=== PATIENT | female | born 1955 ===

== ENCOUNTER 2020-03-04 08:01 | Outpatient (REF) | payer MEDICARE, MEDICAID, SELFPAY ==
[2020-03-04 10:39] LABS: Albumin Level 4.4 g/dL (3.5-5.0); Calcium 9.9 mg/dL (8.4-10.2)
[2020-03-04 11:08] LABS: Free T4 (Free Thyroxine) 1.24 ng/dL (0.71-1.85); Thyroid Stimulating Hormone 2.49 mIU/mL (0.32-4.0); Vitamin D 25-OH Total 34.9 ng/mL (>30)
[2020-03-05 20:32] LABS: Calcium (PTHI) 9.7 mg/dL (8.6-10.4); PTHI 54 pg/mL (14-64)
[2020-03-10 01:17] LABS: VITAMIN D (1,25 OH) D3 54 pg/mL; Vit D (1,25-Dihydroxy) Total 54 pg/mL (18-72); Vitamin D (1,25 OH) D2 <8 pg/mL
== END 2020-03-04 08:02 | disposition home or self-care (01) ==
LOC: HO.10HDL 08:01
PROVIDERS: Visit Provider Internal Medicine Endocrinology, Diabetes & Metabolism
DX: E83.52 Hypercalcemia (principal); E04.2 Nontoxic multinodular goiter; M81.0 Age-related osteoporosis without current pathological fracture
CPT/HCPCS: 82040; 82306; 82310; 82652; 83970; 84439; 84443

== ENCOUNTER 2020-04-10 07:33 | Outpatient (REF) | payer MEDICARE, MEDICAID, SELFPAY ==
[2020-04-10 11:06] LABS: Total Volume 24 Hour Urine 500 mL
[2020-04-10 11:13] LABS: Creatinine, 24Hr Urine 0.4 G/Day (1.0-2.0); Creatinine, mg/dL 85.07
[2020-04-13 18:18] LABS: Calcium, 24 Hr Urine 69 mg/24 h; Calcium/Creatinine Ratio 161 mg/g creat (30-275); Creatinine 24Hr Urine 0.43 g/24 h (0.50-2.15)
== END 2020-04-10 07:34 | disposition home or self-care (01) ==
LOC: HO.10HDLNP 07:33
PROVIDERS: Visit Provider Internal Medicine Endocrinology, Diabetes & Metabolism
DX: E83.52 Hypercalcemia (principal); M81.0 Age-related osteoporosis without current pathological fracture; E04.2 Nontoxic multinodular goiter
CPT/HCPCS: 82340; 82570

== ENCOUNTER 2020-04-15 12:31 | Outpatient (REF) | payer MEDICARE, MEDICAID, SELFPAY ==
[2020-04-15 15:08] LABS: Alanine Aminotransferase 53 U/L (0-31); Albumin Level 4.5 g/dL (3.5-5.0); Alkaline Phosphatase 95 U/L (39-117); Anion Gap 10 (12-20); Aspartate Amino Transferase 40 U/L (5-31); Bilirubin Total 0.4 mg/dL (0.0-1.0); Blood Urea Nitrogen 14 mg/dL (9-16); Calcium 10.4 mg/dL (8.4-10.2); Carbon Dioxide 31 mmol/L (22-29); Chloride 103 mmol/L (96-108); Estimated Glomerular Filt Rate > 60; Glucose Random 95 mg/dL (60-115); Potassium 4.4 mmol/l (3.3-5.1); Sodium 140 mmol/L (135-145); Total Protein 8.1 g/dL (6.5-8.0)
[2020-04-15 15:31] LABS: Vitamin D 25-OH Total 38.3 ng/mL (>30)
[2020-04-17 21:43] LABS: Calcium (PTHI) 10.7 mg/dL (8.6-10.4); PTHI 47 pg/mL (14-64)
== END 2020-04-15 12:32 | disposition home or self-care (01) ==
LOC: HO.LAB 12:31
PROVIDERS: PCP Nurse Practitioner Family; Referring Provider Nurse Practitioner Family; Visit Provider Internal Medicine Endocrinology, Diabetes & Metabolism
DX: M81.0 Age-related osteoporosis without current pathological fracture (principal); E04.2 Nontoxic multinodular goiter; E83.52 Hypercalcemia; I10 Essential (primary) hypertension; Z79.899 Other long term (current) drug therapy
CPT/HCPCS: 80053; 82306; 83970; 99212

== ENCOUNTER 2020-04-20 08:04 | Outpatient (REF) | payer MEDICARE, MEDICAID, SELFPAY ==
--- NOTE | 2020-04-20 08:08 | US_ITS ---
PROCEDURE: US-GUIDED LEFT THYROID NODULE BIOPSY CLINICAL INFORMATION: Multiple thyroid nodules. A dominant nodule 1.8 cm in left lower pole. COMPARISON: Ultrasound thyroid soft tissue neck 10/23/2019 TECHNIQUE: Following explaining ultrasound-guided left thyroid nodule biopsy procedure, benefits and risk, a written consent was obtained. Patient was placed supine on ultrasound stretcher, and preliminary ultrasound imaging was obtained through the neck, especially the left neck. An optimal site was selected, marked on the skin. The area marked was cleaned and draped in usual sterile manner. 1% lidocaine was administered at puncture site. Under sterile ultrasound guidance, a 25-gauge needle attached to syringe was advanced into the dominant nodule and aspirated. Three fine needle aspiration biopsies were performed. Lastly, a 22-gauge needle connected to the syringe was advanced, and thick gelatinous fluid was aspirated. Postprocedure repeat ultrasound revealed shrinkage of the cystic nodule. Complete hemostasis was achieved at puncture site. Sterile band-aid was applied at the puncture site. Patient tolerated the procedure extremely well. FINDINGS: On preliminary imaging, there is a moderate size dominant nodule lower pole left lobe predominantly appearing cystic. Three pass fine-needle biopsy aspiration with 25-gauge and last aspiration biopsy was performed with a 22-gauge needle. US/US guided fine needle asp IMPRESSION: Successful ultrasound-guided left lower pole dominant nodule biopsy performed. Cytology results are pending.
== END 2020-04-20 08:05 | disposition home or self-care (01) ==
LOC: HO.US 08:04
PROVIDERS: PCP Nurse Practitioner Family; Visit Provider Internal Medicine Endocrinology, Diabetes & Metabolism
DX: E04.2 Nontoxic multinodular goiter (principal)
CPT/HCPCS: 10005; 88172; 88173; 88177

== ENCOUNTER 2020-05-18 08:00 | Outpatient (REF) | payer MEDICARE, MEDICAID, SELFPAY ==
[2020-05-18 09:55] LABS: Hemoglobin 11.9 g/dl (12.0-16.0); Mean Corpuscular HGB Conc 32.2 g/dl (31.0-35.0); Mean Corpuscular Hemoglobin 30.4 pg (27.0-33.0); Mean Corpuscular Volume 94.6 fL (80-98); Platelet Count 329 X10*3/uL (160-400); Red Blood Count 3.91 X10*6/uL (4.20-5.50); Red Cell Distribution Width 12.2 % (11.0-16.0); White Blood Count 7.6 X10*3/uL (4.8-10.8)
[2020-05-18 10:01] LABS: Alanine Aminotransferase 38 U/L (0-31); Albumin Level 4.6 g/dL (3.5-5.0); Alkaline Phosphatase 89 U/L (39-117); Anion Gap 13 (12-20); Aspartate Amino Transferase 27 U/L (5-31); Bilirubin Total 0.5 mg/dL (0.0-1.0); Blood Urea Nitrogen 13 mg/dL (9-16); Calcium 10.1 mg/dL (8.4-10.2); Carbon Dioxide 28 mmol/L (22-29); Chloride 105 mmol/L (96-108); Cholesterol 141 mg/dL; Estimated Glomerular Filt Rate > 60; Glucose Random 129 mg/dL (60-115); HDL Cholesterol 52 mg/dL; LDL Cholesterol Calculated 71 mg/dl; Potassium 4.2 mmol/l (3.3-5.1); Sodium 142 mmol/L (135-145); Total Protein 8.2 g/dL (6.5-8.0); Triglycerides 93 mg/dL
[2020-05-18 10:13] LABS: Vitamin D 25-OH Total 37.4 ng/mL (>30)
== END 2020-05-18 08:01 | disposition home or self-care (01) ==
LOC: HO.LAB 08:00
PROVIDERS: PCP Nurse Practitioner Family; Visit Provider Nurse Practitioner Family
DX: E78.00 Pure hypercholesterolemia, unspecified (principal); I10 Essential (primary) hypertension; M81.0 Age-related osteoporosis without current pathological fracture; Z71.89 Other specified counseling
CPT/HCPCS: 36415; 80053; 80061; 82306; 85027

== ENCOUNTER 2020-08-13 09:40 | Outpatient (REF) | payer MEDICARE, MEDICAID, SELFPAY ==
--- NOTE | 2020-08-13 10:14 | PM.OP ---
Brief Operative Note Date of Service: 08/13/20 Pre-op diagnosis: NONTOXIC MULTINODULAR GOITER Post-op diagnosis: same Procedure: This procedure was explained to the patient. Alternatives, risks and benefits were discussed. Written consent was obtained. After sterile preparation of the skin, fine-needle aspiration biopsy of left lower pole thyroid nodule size 1.8 x 1.1 x 1.3 cm was performed under direct ultrasound guidance to confirm accurate needle placement. Three passes were performed with 25 gauge needles. Sample was submitted to cytology, initial cytology reading was adequate. One pass was performed with 27 gauge needle. Two passes were dedicated for [employer] genomic sequencing pharmacy general manager test. Patient tolerated procedure well. Aftercare instructions were provided. Impression: uncomplicated fine-needle aspiration biopsy of left lower pole thyroid nodule under direct ultrasound guidance. Surgeon: Hola Soto MD Anesthesia: local (Lidocaine 1 % 1 ml) Estimated blood loss (mL): 0 Condition: stable Disposition: same day
[2020-08-13] MEDS: Lidocaine HCl 1 % MPF 5 ML VIAL SUBCUT (10:31)
== END 2020-08-13 09:41 | disposition home or self-care (01) ==
LOC: HO.US 09:40
PROVIDERS: Visit Provider Internal Medicine Endocrinology, Diabetes & Metabolism
DX: E04.2 Nontoxic multinodular goiter (principal)
CPT/HCPCS: 10005; 88172; 88173; 88177

== ENCOUNTER 2020-09-09 07:32 | Outpatient (REF) | payer MEDICARE, SELFPAY ==
[2020-09-09 08:54] LABS: MANUAL DIFF FLAG NO
[2020-09-09 09:03] LABS: Basophils Percent Auto 0.5 % (0-2); Eosinophils Absolute Auto 0.2 X10*3/uL (0.0-0.4); Eosinophils Percent Auto 3.1 % (0-4); Hematocrit 36.1 % (37-47); Hemoglobin 11.8 g/dl (12.0-16.0); Imm Gran Abs Auto 0.03 X10*3/uL (0.00-0.03); Imm Gran Pct Auto 0.4 % (0.0-0.4); Lymphocytes Absolute Auto 2.4 X10*3/uL (1.2-4.9); Mean Corpuscular HGB Conc 32.7 g/dl (31.0-35.0); Mean Corpuscular Hemoglobin 30.7 pg (27.0-33.0); Mean Platelet Volume 9.9 fL (9.4-12.3); Monocytes Absolute Auto 0.6 X10*3/uL (0.1-1.2); Monocytes Percent Auto 7.6 % (2-11); Neutrophils Absolute Auto 4.1 X10*3/uL (2.0-8.3); Neutrophils Percent Auto 55.4 % (45-73); Platelet Count 320 X10*3/uL (160-400); Red Blood Count 3.84 X10*6/uL (4.20-5.50); Red Cell Distribution Width 12.4 % (11.0-16.0); White Blood Count 7.4 X10*3/uL (4.8-10.8)
[2020-09-09 09:04] LABS: Estimated Average Glucose 100 mg/dL; Hemoglobin A1c % 5.1 %
[2020-09-09 09:19] LABS: Alanine Aminotransferase 31 U/L (0-31); Albumin Level 4.6 g/dL (3.5-5.0); Alkaline Phosphatase 99 U/L (39-117); Anion Gap 13 (12-20); Aspartate Amino Transferase 32 U/L (5-31); Bilirubin Total 0.7 mg/dL (0.0-1.0); Blood Urea Nitrogen 12 mg/dL (9-16); Calcium 10.3 mg/dL (8.4-10.2); Carbon Dioxide 28 mmol/L (22-29); Chloride 105 mmol/L (96-108); Cholesterol 155 mg/dL; Estimated Glomerular Filt Rate > 60; Glucose Random 112 mg/dL (60-115); HDL Cholesterol 51 mg/dL; LDL Cholesterol Calculated 85 mg/dl; Potassium 4.1 mmol/L (3.3-5.1); Sodium 142 mmol/L (135-145); Total Protein 8.3 g/dL (6.5-8.0); Triglycerides 99 mg/dL
[2020-09-09 09:28] LABS: B Type Natriuretic Peptide 18 pg/mL (<100)
== END 2020-09-09 07:33 | disposition home or self-care (01) ==
LOC: HO.LAB 07:32
PROVIDERS: PCP Internal Medicine; Visit Provider Internal Medicine
DX: E78.00 Pure hypercholesterolemia, unspecified (principal); I10 Essential (primary) hypertension; R60.0 Localized edema
CPT/HCPCS: 36415; 80053; 80061; 83036; 83880; 85025

== ENCOUNTER 2020-10-12 13:00 | Outpatient (REF) | payer MEDICARE, SELFPAY ==
--- NOTE | ~2020-10-12 | MM_ITS ---
EXAMINATION: MM SCREENING DIGITAL BREAST TOMOSYNTHESIS, BILATERAL CLINICAL INFORMATION: Screening. Asymptomatic. The lifetime risk of breast cancer based on the Tyrer-Cuzick Model is 4%. COMPARISON: Mammography: 08/12/2019 and prior exams dating back to 02/11/2013. TECHNIQUE: Digital breast tomosynthesis is performed in both the craniocaudal and mediolateral oblique views along with computer-aided detection (CAD). Synthesized 2D images are generated from the tomosynthesis. Additional left MLO view is provided. FINDINGS: The breasts are heterogeneously dense, which may obscure small masses (ACR BI-RADS breast composition Category c). Parenchymal pattern is similar to prior studies. There is chronic patchy accessory breast tissue again noted posterior upper outer right breast similar to prior studies. Neither breast shows developing density or interval mass or architectural abnormality. No abnormal calcifications. The axilla and skin contours are unremarkable. MM/MM tomosynthesis screening BI IMPRESSION: No significant changes from prior studies. ASSESSMENT: BI-RADS 2: Benign RECOMMENDATION: Routine annual mammography screening. This patient's information was entered into a reminder system with a target due date for their next mammogram.
== END 2020-10-12 13:01 | disposition home or self-care (01) ==
LOC: HO.MAMMO 13:00
PROVIDERS: PCP Internal Medicine; Visit Provider Internal Medicine
DX: Z12.31 Encounter for screening mammogram for malignant neoplasm of breast (principal)
CPT/HCPCS: 77063; 77067

== ENCOUNTER → 2020-10-21 11:15 | Outpatient (BNVA) | payer MEDICARE, SELFPAY | PROVIDERS: PCP Internal Medicine; Visit Provider Internal Medicine Endocrinology, Diabetes & Metabolism | DX: M81.0 Age-related osteoporosis without current pathological fracture (principal); E04.2 Nontoxic multinodular goiter; E83.52 Hypercalcemia; I10 Essential (primary) hypertension | CPT/HCPCS: 99212 ==

== ENCOUNTER 2020-10-23 08:41 | Outpatient (REF) | payer MEDICARE, SELFPAY ==
[2020-10-23 11:08] LABS: Alanine Aminotransferase 39 U/L (0-31); Albumin Level 4.5 g/dL (3.5-5.0); Alkaline Phosphatase 100 U/L (39-117); Anion Gap 14 (12-20); Aspartate Amino Transferase 32 U/L (5-31); Bilirubin Total 0.6 mg/dL (0.0-1.0); Blood Urea Nitrogen 12 mg/dL (9-16); Calcium 10.1 mg/dL (8.4-10.2); Carbon Dioxide 30 mmol/L (22-29); Chloride 105 mmol/L (96-108); Estimated Glomerular Filt Rate > 60; Glucose Fasting 103 mg/dL (60-99); Magnesium 2.4 mg/dL (1.6-2.6); Phosphorus 3.5 mg/dL (2.7-4.5); Potassium 3.9 mmol/L (3.3-5.1); Sodium 145 mmol/L (135-145)
[2020-10-23 11:15] LABS: Free T4 (Free Thyroxine) 1.06 ng/dL (0.71-1.85); Thyroid Stimulating Hormone 2.21 uIU/mL (0.32-4.0); Vitamin D 25-OH Total 42.6 ng/mL (>30)
[2020-10-26 14:42] LABS: Calcium, Ionized 5.2 mg/dL (4.8-5.6)
[2020-10-27 09:36] LABS: PTHI 105 pg/mL (14-64)
[2020-10-28 12:22] LABS: Alkaline Phosphatase Bone 14.5 mcg/L (5.6-29.0)
[2020-10-29 13:32] LABS: N-Telopeptide 20 (see note); NTXCreaRU 142 mg/dL (20-275)
== END 2020-10-23 08:42 | disposition home or self-care (01) ==
LOC: HO.10HDL 08:41
PROVIDERS: Visit Provider Internal Medicine Endocrinology, Diabetes & Metabolism
DX: M81.0 Age-related osteoporosis without current pathological fracture (principal); E83.52 Hypercalcemia; E04.2 Nontoxic multinodular goiter
CPT/HCPCS: 36415; 80053; 82306; 82330; 82340; 82523; 82570; 83735; 83970; 84075; 84100; 84439; 84443

== ENCOUNTER 2020-11-03 07:49 | Outpatient (REF) | payer MEDICARE, SELFPAY ==
[2020-11-03 11:19] LABS: Total Volume 24 Hour Urine 700 mL
[2020-11-03 12:01] LABS: Creatinine, 24Hr Urine 0.5 G/Day (1.0-2.0); Creatinine, mg/dL 77.34
[2020-11-04 20:12] LABS: Calcium, 24 Hr Urine 69 mg/24 h; Calcium/Creatinine Ratio 126 mg/g creat (30-275); Creatinine 24Hr Urine 0.55 g/24 h (0.50-2.15)
== END 2020-11-03 07:50 | disposition home or self-care (01) ==
LOC: HO.10HDLNP 07:49
PROVIDERS: Visit Provider Internal Medicine Endocrinology, Diabetes & Metabolism
DX: M81.0 Age-related osteoporosis without current pathological fracture (principal)
CPT/HCPCS: 82340; 82570

== ENCOUNTER 2020-11-12 09:19 | Outpatient (REF) | payer MEDICARE, SELFPAY ==
--- NOTE | ~2020-11-12 | MM_ITS ---
EXAMINATION: BONE DENSITOMETRY CLINICAL INDICATION: Age-related osteoporosis without current pathological fracture. COMPARISON: Previous BD dated 12/23/2019, lumbar spine and left hip, and baseline BD dated 12/18/2007, lumbar spine and left hip; 12/23/2019, forearm radius 33. TECHNIQUE: Using a [employer] DXA System (software version: 13.1) manufactured by [employer], dual-energy x-ray absorptiometry was performed of the lumbar spine, left hip, and left forearm radius 33%. The images are of good technical quality. Summary results are attached. FINDINGS: AP SPINE L1-L4: Current: BMD 0.928 g/cm2, Z-score -0.3, T-score -2.1, osteopenia, 0.8% increase from previous, 0.9% increase from baseline (<5% change is not significant). Prior: BMD 0.921 g/cm2. Baseline: BMD 0.920 g/cm2. LEFT FEMUR, NECK: Current: BMD 0.753 g/cm2, Z-score -0.3, T-score -2.1, osteopenia. Prior: BMD 0.734 g/cm2. Baseline: BMD 0.752 g/cm2. LEFT FEMUR, TOTAL: Current: BMD 0.866 g/cm2, Z-score 0.4, T-score -1.1, osteopenia, 0.5% increase from previous, 0.3% increase from baseline (<5% change is not significant). Prior: BMD 0.862 g/cm2. Baseline: BMD 0.863 g/cm2. LEFT FOREARM RADIUS 33%: BMD 0.777 g/cm2, Z-score 0.5, T-score -1.1, osteopenia, 5.2% decrease from baseline (<5% change is not significant). Prior exam 12/23/2019 - also baseline for forearm: BMD 0.820 g/cm2. IDENTIFIED RISK FACTORS: Osteoporosis, hyperparathyroidism, menopause, hysterectomy, bilateral oophorectomy. HISTORY OF FRACTURE: None listed. MEDICATIONS: Calcium supplements or multivitamin, vitamin D, bisphosphonates. MM/XR DEXA appendicular skeleton IMPRESSION: 1. DIAGNOSIS: Osteopenia based on the lowest T-score value of -2.1 in the lumbar spine and femoral neck applying World Health Organization criteria. 2. 10-YEAR FRACTURE RISK PREDICTION, FRAX: Major osteoporotic fracture (clinical spine, forearm, hip or shoulder) 6.4%. Hip fracture 1.2%. 3. Treatment Recommendations: NOF guidelines recommend consideration for treatment in postmenopausal women and men age 50 and older presenting with the following: -A hip or vertebral (clinical or morphometric) fracture. -T-score less than or equal to -2.5 at the femoral neck or spine after appropriate evaluation to exclude secondary causes. -Low bone mass at the hip or spine and a 10-year fracture probability by FRAX of greater than or equal to 3% for hip fracture or greater than or equal to 20% for major osteoporotic fracture based on the [place] adapted WHO algorithm. 4. Other Recommendations: All treatment decisions require clinical judgment and consideration of individual patient factors, including patient preferences, comorbidities, previous drug use, risk factors not captured in the FRAX model (e.g. frailty, falls, vitamin D deficiency, increased bone turnover, interval significant decline in bone density) and possible under or overestimation of fracture risk by FRAX. Additional medical evaluation for secondary cause of low bone mineral density may be appropriate. FUTURE SCAN RECOMMENDATION: People with diagnosed cases of osteoporosis or at high risk for fracture should have regular bone mineral density tests. For patients eligible for Medicare, routine testing is allowed once every 2 years. The testing frequency can be increased to one year for patients who have rapidly progressing disease, those who are receiving or discontinuing medical therapy to restore bone mass, or have additional risk factors.
== END 2020-11-12 09:20 | disposition home or self-care (01) ==
LOC: HO.MAMMO 09:19
PROVIDERS: Visit Provider Internal Medicine Endocrinology, Diabetes & Metabolism
DX: Z13.820 Encounter for screening for osteoporosis (principal); M81.0 Age-related osteoporosis without current pathological fracture; E83.52 Hypercalcemia; Z78.0 Asymptomatic menopausal state; Z98.890 Other specified postprocedural states; Z79.899 Other long term (current) drug therapy
CPT/HCPCS: 77081

== ENCOUNTER → 2021-06-24 12:32 | Outpatient (BNVA) | payer MEDICARE, SELFPAY | PROVIDERS: PCP Internal Medicine; Visit Provider Internal Medicine Endocrinology, Diabetes & Metabolism | DX: M81.0 Age-related osteoporosis without current pathological fracture (principal); E83.52 Hypercalcemia; E04.2 Nontoxic multinodular goiter | CPT/HCPCS: 99212 ==

== ENCOUNTER 2021-06-30 07:41 | Outpatient (REF) | payer MEDICARE, SELFPAY ==
[2021-06-30 10:24] LABS: Albumin Level 4.4 g/dL (3.5-5.0)
[2021-06-30 10:50] LABS: Vitamin D 25-OH Total 16.5 ng/mL (>30)
[2021-07-01 13:45] LABS: Calcium (PTHI) 10.3 mg/dL (8.6-10.4); PTHI 78 pg/mL (14-64)
== END 2021-06-30 07:42 | disposition home or self-care (01) ==
LOC: HO.10HDL 07:41
PROVIDERS: Visit Provider Internal Medicine Endocrinology, Diabetes & Metabolism
DX: E83.52 Hypercalcemia (principal); M81.0 Age-related osteoporosis without current pathological fracture
CPT/HCPCS: 36415; 82040; 82306; 83970

== ENCOUNTER 2021-09-01 07:07 | Outpatient (REF) | payer OTHER, SELFPAY ==
[2021-09-01 08:47] LABS: Albumin Level 4.5 g/dL (3.5-5.0); Calcium 10.6 mg/dL (8.4-10.2)
[2021-09-01 09:08] LABS: Vitamin D 25-OH Total 83.2 ng/mL (>30)
[2021-09-06 12:47] LABS: Calcium (PTHI) 10.2 mg/dL (8.6-10.4); PTHI 74 pg/mL (16-77)
== END 2021-09-01 07:08 | disposition home or self-care (01) ==
LOC: HO.LAB 07:07
PROVIDERS: Visit Provider Internal Medicine Endocrinology, Diabetes & Metabolism
DX: E83.52 Hypercalcemia (principal)
CPT/HCPCS: 36415; 82040; 82306; 82310; 83970

== ENCOUNTER 2022-01-18 13:16 | Outpatient (REF) | payer OTHER, SELFPAY ==
--- NOTE | ~2022-01-18 | MM_ITS ---
EXAMINATION: MM SCREENING DIGITAL BREAST TOMOSYNTHESIS, BILATERAL CLINICAL INFORMATION: Screening. Asymptomatic. The lifetime risk of breast cancer based on the Tyrer-Cuzick Model is 2.7%. COMPARISON: Mammography: October 12, 2020 and studies dating back to February 17, 2015 TECHNIQUE: Digital breast tomosynthesis is performed in both the craniocaudal and mediolateral oblique views along with computer-aided detection (CAD). Synthesized 2D images are generated from the tomosynthesis. FINDINGS: The breasts are heterogeneously dense, which may obscure small masses (ACR BI-RADS breast composition Category c). There are no significant masses, abnormal calcifications, or other abnormalities. MM/MM tomosynthesis screening BI IMPRESSION: No significant changes from prior exam. ASSESSMENT: BI-RADS 1: Negative RECOMMENDATION: Routine annual mammography screening. This patient's information was entered into a reminder system with a target due date for their next mammogram.
== END 2022-01-18 13:17 | disposition home or self-care (01) ==
LOC: HO.MAMMO 13:16
PROVIDERS: PCP Internal Medicine; Visit Provider Internal Medicine
DX: Z12.31 Encounter for screening mammogram for malignant neoplasm of breast (principal)
CPT/HCPCS: 77063; 77067

== ENCOUNTER 2022-09-27 11:36 | Outpatient (REF) | payer OTHER, SELFPAY ==
--- NOTE | ~2022-09-27 | XR_ITS ---
EXAMINATION: XR CHEST 2 VIEWS CLINICAL INFORMATION: Chronic cough. COMPARISON: Chest radiographs dated 01/12/2018. TECHNIQUE: Frontal and lateral views of the chest were obtained. FINDINGS: The heart, great vessels, pulmonary vasculature and mediastinum are stable. The heart size is least top normal normal. The lungs show no focal infiltrate, effusion or pneumothorax. There is no acute osseous abnormality. XR/XR chest 2V IMPRESSION: No active cardiopulmonary disease.
== END 2022-09-27 11:37 | disposition home or self-care (01) ==
LOC: HO.HHCX 11:36
PROVIDERS: Visit Provider Registered Nurse
DX: R05.3 Chronic cough (principal)
CPT/HCPCS: 71046

== ENCOUNTER → 2022-11-01 09:42 | Outpatient (BNVA) | payer OTHER, SELFPAY | PROVIDERS: Visit Provider Internal Medicine Cardiovascular Disease | DX: R06.02 Shortness of breath (principal); R01.1 Cardiac murmur, unspecified; Z79.899 Other long term (current) drug therapy | CPT/HCPCS: 93005; 99202 ==

== ENCOUNTER → 2022-12-12 07:20 | Outpatient (REF) | payer OTHER, SELFPAY ==
--- NOTE | 2022-12-12 07:24 | CA_ITS ---
Acquisition Time: 2022-12-12 08:57:05 Total Exercise Time: 00:07:49 Test Indications: SOB, MURMUR Medications: SEE H Protocol: ROBERT Max HR: 150 BPM 99% of Pred: 151 BPM Max BP: 152/080 mmHG Max Work Load: 4.4 METS Exercise stress test exercise 5 min 49 sec of Robert protocol achieving % MPHR (patient had difficulties with treadmill did not start untill 2 mins with decreased speed of 1.1 mph. at 5 min increased to 1.5,ph and 11% grade) , with mild SOB, no chest discomfort, without arrhythmias, with normotensive response to exercise, with ST scooping. Test reviewed with Dr. Nava. Referred By: Connor Castorena Overread By: Halle Golden
--- NOTE | 2022-12-12 07:24 | CA_ITS ---
Transthoracic Echocardiogram Patient (Last, First, Middle): Paulette Alexis, Gender: Female Date of : 1955 Age: 67 Procedure Date: 12/12/2022 Procedure Type: Transthoracic Echocardiogram Location: OP Height: 160.02 cm Weight: 58.97 kg BSA: 1.61 m2 Heart Rate: bpm BP: 160 / 75 mmHg Software Requirements Engineer: JOSE Referring MD: Connor Castorena MD Symptoms: R06.02 - Shortness of breath Study Quality: Adequate ECG Rhythm: Sinus Conclusions: - The left ventricular systolic function is normal. The calculated ejection fraction is 66% by biplane method. - No obvious valvular pathology seen on this study. Findings Left Ventricle Normal left ventricular cavity size. There is mildly increased left ventricular wall thickness. The left ventricular systolic function is normal. The calculated ejection fraction is 66% by biplane method. There is no evidence of regional wall motion abnormalities. E/E prime ratio is >15, consistent with elevated filling pressures. Evidence suggests grade I (mild) diastolic dysfunction. LV peak GLS -19.8%. Right Ventricle Normal right ventricular cavity size and systolic function. Atria Both atria are normal in size. Aortic Valve There is a normal trileaflet aortic valve. There is no aortic valve stenosis. There is no aortic valve regurgitation. Mitral Valve The mitral valve appears normal. There is no mitral valve regurgitation. There is no mitral valve stenosis. Pulmonic Valve The pulmonic valve is likely normal. Tricuspid Valve Normal tricuspid valve structure. There is trace tricuspid valve regurgitation. There is no evidence of pulmonary hypertension. Great Vessels The asc aorta is normal in size. Venous The inferior vena cava is normal in size and collapses greater than 50% with inspiration. Pericardium/Pleural Prominent epicardial adipose tissue noted. There is no evidence of pericardial effusion. Prior Study Comparison No significant change compared to prior study dated: 05/28/2011. Recommendations, Care & Conclusions No obvious valvular pathology seen on this study. Measurements 2D Linear Measurements IVSd: 1.03 0.6-0.9/0.6-1.0 cm LVIDd: 4.21 3.9-5.3/4.2-5.9 cm LVIDd Index: 2.61 2.4-3.2/2.2-3.1 cm/m2 LVIDs: 2.51 2.0-3.6 cm LVPWd: 1.37 0.7-1.1 cm LA Diam: 3.30 2.7-3.8/3.0-4.0 cm LAIDs Index: 2.05 1.5-2.3 cm/m2 LV Mass: 222.75 67-162/88-224 g LV Mass Index: 138.36 43-95/49-115 g/m2 LVOT Diam: 1.80 3.0+(-)1.3 cm 2D Systolic Function EF 4C: 65.90 >55% EF 2C: 65.30 >55% EF BiP: 65.70 >55% Mitral Valve MV Pk E: 1.05 MV PK A: 1.02 MV Decel Time: 174.00 E/A: 1.00 E'Lateral: 6.20 E'Medial: 5.11 E/E' Med: 20.50 E/E' Lat: 16.90 PHT: 51.00 MVA PHT: 4.31 Decel Webb: 6.00 Aortic Valve AoV Pk Michael: 1.46 AoV Mn Michael: 1.00 AoV VTI: 0.33 AoV Pk Grad: 9.00 Aov Mn Grad: 4.00 CHUY Cont.VTI: 1.84 LVOT LVOT Pk Michael: 1.15 LVOT Mn Michael: 0.75 LVOT VTI: 0.24 LVOT Pk Grad: 5.00 LVOT Mn Grad: 3.00 LVOT Diam: 1.80 LVOT Area: 2.54 Diastolic Function MV Pk E: 1.05 MV Pk A: 1.02 E/A: 1.00 E'Medial: 5.11 E/E' Med: 20.50 E' Laterial: 6.20 E/E' Lat: 16.90 Right Ventricle TAPSE (mm): 19.60 TVS' Michael: 14.00 Tricuspid Valve TR Pk Michael: 2.00 TR Pk Grad: 16.00 RA Press: 3.00 RVSP: 19.00 Great Vessels Aorta Sinus of Valsalva: 2.77 2.0-3.[address] Ridge: 2.57 1.7-3.4 cm Ao Asc: 3.20 2.1-3.4 cm Updated in Other Vendor System with Status of Final Brian Landers MD electronically signed on 12/13/2022 10:35:18 AM with status of Final
== END ==
LOC: HO.CARD 07:20
PROVIDERS: Visit Provider Internal Medicine Cardiovascular Disease
DX: R06.02 Shortness of breath (principal); R01.1 Cardiac murmur, unspecified
CPT/HCPCS: 93017; 93306; 93356

== ENCOUNTER → 2022-12-12 07:24 | Outpatient (BNV) | payer OTHER, SELFPAY | PROVIDERS: Visit Provider Nurse Practitioner | DX: I51.9 Heart disease, unspecified (principal) | CPT/HCPCS: 93016; 93018; 93306 ==

== ENCOUNTER 2023-01-02 08:11 | Outpatient (AMB) | payer OTHER, SELFPAY ==
[2023-01-02 08:18] VITALS: BP 120/80; PULSE 61; BMI 22.3
--- NOTE | 2023-01-02 08:18 | MHC.OFFVIS ---
Intake Vital Signs 01/02/23 08:18 Height 5 ft 3 in Weight 125 lb 10.616 oz BMI 22.3 BP 120/80 Blood Pressure Location Lt brachial Position Sitting Pulse 61 Pulse Source Pulse Oximeter Intake Visit Reasons: follow up after testing Intake Note: f/up after testing Lead Loader Required: Yes Lead Loader Name: demond arnold [id number] Allergies atorvastatin [Lipitor] Allergy (Unknown, Verified 01/02/23 08:22) Unknown Medication List - Last Reconciled 01/02/23 by Nancy Bernardo NP-C amlodipine 10 mg PO QAM 90 days brimonidine 0.2% 1 drp ophthalmic (eye) Q12H calcium carbonate 600 mg PO DAILY 30 days cholecalciferol (vitamin D3) 125 mcg PO DAILY rosuvastatin 5 mg PO QAM valsartan 160 mg PO BEDTIME HPI follow up after testing HPI Details Paulette is a 67-year-old female with past medical history of hypertension, hyperlipidemia who was referred to Cardiology for evaluation of heart murmur. On last visit she also reported shortness of breath and underwent an echocardiogram and stress test. She now presents for follow-up. Today she reports that she has been feeling well with no concerning shortness of breath. She denies having any chest discomfort, palpitations, dizziness. She is very vague with her responses even with the use of a care management coordinator. She has no cardiac questions or concerns. She reports good activity tolerance. Certified care management coordinator used [facility] Medical History Hypercalcemia Hypertension Non-toxic multinodular goiter Osteoporosis Vitamin D deficiency Surgical History Hx of total hysterectomy Family History Father Unknown family medical history Mother Hypercholesteremia Sister Osteoporosis Social History Household Members: Spouse Alcohol intake: current Alcohol intake frequency: does not drink Patient Tobacco Use Status: Former Tobacco user Quit Date: Over 20 years ago Review of Systems Const All systems reviewed & are unremarkable except as noted in HPI and below ENT Reports dizziness Card Denies chest pain, Denies chest pain at rest, Denies chest pain with activity, Denies rapid heart rate, Denies pedal edema, Denies edema, Denies leg edema, Denies lightheadedness, Denies palpitations, Denies dyspnea, Denies dyspnea on exertion and Denies orthopnea Resp Denies cough, Denies dyspnea and Denies dyspnea on exertion GI Denies hematochezia and Denies change in stool character Musc Denies abnormal gait, Reports limited range of motion, Reports muscle cramps, Denies muscle weakness, Denies numbness, Denies radiating pain into limb, Denies stiffness and Denies tingling Neuro Denies abnormal gait, Reports dizziness, Denies numbness and Denies tingling Endo Denies palpitations Physical Exam Vital Signs: Last Vital Signs Pulse 61 01/02/23 08:18 BP 120/80 01/02/23 08:18 BMI result Body Mass Index 22.3 Const General: cooperative, healthy appearing, comfortable and no acute distress Orientation/consciousness: patient oriented x3 Neck Neck: Yes normal visual inspection Resp Effort & Inspection: normal respiratory effort Auscultation: clear to auscultation bilaterally, no crackles, no rales, no rhonchi and no wheezes Cardio Jugular venous distension: no JVD Rate: regular rate Rhythm: regular rhythm Heart sounds: S1 normal heart sound present, S2 normal heart sound present, no gallops, Murmur heart sound present (Very faint systolic murmur at start of S1 sound) and no rubs Neuro General: patient oriented x3 Extrem General: Yes normal to inspection Psych Appearance: grossly normal Mental Status: mental status grossly normal Speech and movement: Normal speech and movement present Assessment & Plan Assessment & Plan (1) SOB (shortness of breath): Code(s): R06.02 - Shortness of breath Plan: Reported shortness of breath with activity. No known cardiac history. Cardiac risks of hypertension and hyperlipidemia. EKG done last visit showed sinus rhythm with no acute ST or T-wave abnormalities, rate 92. Echocardiogram done 12/12/2022 showed EF 66%, mild increase in the LV thickness, no valve abnormalities and grade 1 diastolic dysfunction. Exercise stress test done 12/12/2022 showed exercise 5 minutes 49 seconds achieving 99% MPHR are with mild shortness of breath. EKGs reviewed by me showing no findings meeting criteria for ischemia. With use of care management coordinator reviewed all results with her in detail. At present she offers no cardiac questions or concerns. Continue with cardiac risk factor modification including good blood pressure and cholesterol control. No med changes made. Cardiology follow-up as needed. She will continue follow with her PCP (2) Systolic murmur: Code(s): R01.1 - Cardiac murmur, unspecified Plan: Faint systolic murmur noted. Echocardiogram results show normal EF, no valve abnormalities, mild increase in the LV wall thickness. Continue with good blood pressure control. Coding Level of Care Code Est Pt Level 3 (22472) Diagnoses SOB (shortness of breath) R06.02 Systolic murmur R01.1 Time Spent (min) 20 Comment Chart review, documentation, interview, assessment
== END 2023-01-02 08:35 | disposition home or self-care (01) ==
PROVIDERS: PCP Internal Medicine; Visit Provider Nurse Practitioner Family
DX: R06.02 Shortness of breath (principal); R01.1 Cardiac murmur, unspecified
CPT/HCPCS: 99213

== ENCOUNTER → 2023-01-02 08:11 | Outpatient (BNVA) | payer OTHER, SELFPAY | PROVIDERS: PCP Internal Medicine; Visit Provider Nurse Practitioner Family | DX: R06.02 Shortness of breath (principal); R01.1 Cardiac murmur, unspecified | CPT/HCPCS: 99212 ==

== ENCOUNTER 2023-01-20 08:06 | Outpatient (REF) | payer OTHER, SELFPAY ==
[2023-01-20 12:42] LABS: Syphilis Screen Nonreactive (Nonreactive)
== END 2023-01-20 08:07 | disposition home or self-care (01) ==
LOC: HO.HHCL 08:06
PROVIDERS: Visit Provider Registered Nurse
DX: A53.0 Latent syphilis, unspecified as early or late (principal)
CPT/HCPCS: 36415; 86780

== ENCOUNTER 2023-02-02 11:42 | Outpatient (REF) | payer OTHER, SELFPAY ==
[2023-02-03 03:14] LABS: Syphilis Screen Nonreactive (Nonreactive)
== END 2023-02-02 11:43 | disposition home or self-care (01) ==
LOC: HO.HHCL 11:42
PROVIDERS: Visit Provider Registered Nurse
DX: A53.0 Latent syphilis, unspecified as early or late (principal)
CPT/HCPCS: 36415; 86780

== ENCOUNTER 2023-04-19 10:02 | Outpatient (REF) | payer OTHER, SELFPAY ==
[2023-04-19 11:52] LABS: Anion Gap 14 (12-20); Blood Urea Nitrogen 12 mg/dL (9-16); Calcium 10.8 mg/dL (8.4-10.2); Carbon Dioxide 29 mmol/L (22-29); Chloride 102 mmol/L (96-108); Estimated Glomerular Filt Rate > 60; Glucose Random 104 mg/dL (60-115); Sodium 141 mmol/L (135-145)
== END 2023-04-19 10:03 | disposition home or self-care (01) ==
LOC: HO.HHCL 10:02
PROVIDERS: Visit Provider Registered Nurse
DX: I10 Essential (primary) hypertension (principal)
CPT/HCPCS: 36415; 80048

== ENCOUNTER 2023-06-02 12:28 | Outpatient (REF) | payer OTHER, SELFPAY ==
--- NOTE | ~2023-06-02 | MM_ITS ---
EXAMINATION: BONE DENSITOMETRY CLINICAL INDICATION: Osteoporosis. COMPARISON: Previous BD dated 11/12/2020 and baseline BD dated 12/18/2007. TECHNIQUE: Using a [employer] DXA System (software version: 13.1) manufactured by [employer], dual-energy x-ray absorptiometry was performed of the lumbar spine and left hip. The images are of good technical quality. Summary results are attached. FINDINGS: LEFT FEMUR, NECK: Current: BMD 0.577 g/cm2, Z-score -1.5, T-score -3.3, osteoporosis. Prior: BMD 0.753 g/cm2. Baseline: BMD 0.752 g/cm2. LEFT FEMUR, TOTAL: Current: BMD 0.689 g/cm2, Z-score -0.9, T-score -2.5, osteoporosis, 20.4% decrease from previous, 20.2% decrease from baseline (<5% change is not significant). Prior: BMD 0.866 g/cm2. Baseline: BMD 0.863 g/cm2. AP SPINE L1-L4: Current: BMD 0.897 g/cm2, Z-score -0.5, T-score -2.4, osteopenia, 3.1% decrease from previous, 2.4% decrease from baseline (<5% change is not significant). Prior: BMD 0.926 g/cm2. Baseline: BMD 0.919 g/cm2. IDENTIFIED RISK FACTORS: Menopause. HISTORY OF FRACTURE: None listed. MEDICATIONS: Vitamin D. MM/XR DEXA axial skeleton IMPRESSION: 1. DIAGNOSIS: Osteoporosis based on the lowest T-score value of -3.3 in the femoral neck applying World Health Organization criteria. 2. 10-YEAR FRACTURE RISK PREDICTION, FRAX: According to the guidelines, FRAX calculation should only be performed on patients in the osteopenia bone density category. Therefore, FRAX was not performed on this patient. 3. Treatment Recommendations: NOF guidelines recommend consideration for treatment in postmenopausal women and men age 50 and older presenting with the following: -A hip or vertebral (clinical or morphometric) fracture. -T-score less than or equal to -2.5 at the femoral neck or spine after appropriate evaluation to exclude secondary causes. -Low bone mass at the hip or spine and a 10-year fracture probability by FRAX of greater than or equal to 3% for hip fracture or greater than or equal to 20% for major osteoporotic fracture based on the [place] adapted WHO algorithm. 4. Other Recommendations: All treatment decisions require clinical judgment and consideration of individual patient factors, including patient preferences, comorbidities, previous drug use, risk factors not captured in the FRAX model (e.g. frailty, falls, vitamin D deficiency, increased bone turnover, interval significant decline in bone density) and possible under or overestimation of fracture risk by FRAX. Additional medical evaluation for secondary cause of low bone mineral density may be appropriate. FUTURE SCAN RECOMMENDATION: People with diagnosed cases of osteoporosis or at high risk for fracture should have regular bone mineral density tests. For patients eligible for Medicare, routine testing is allowed once every 2 years. The testing frequency can be increased to one year for patients who have rapidly progressing disease, those who are receiving or discontinuing medical therapy to restore bone mass, or have additional risk factors.
== END 2023-06-02 12:29 | disposition home or self-care (01) ==
LOC: HO.MAMMO 12:28
PROVIDERS: PCP Registered Nurse; Visit Provider Registered Nurse
DX: Z13.820 Encounter for screening for osteoporosis (principal); Z78.0 Asymptomatic menopausal state; M81.0 Age-related osteoporosis without current pathological fracture
CPT/HCPCS: 77080

== ENCOUNTER 2023-06-13 14:32 | Outpatient (REF) | payer OTHER, SELFPAY ==
--- NOTE | ~2023-06-13 | US_ITS ---
EXAMINATION: US EXTRACRANIAL CAROTID DUPLEX, BILATERAL CLINICAL INFORMATION: Left carotid bruit. COMPARISON: None available. TECHNIQUE: Real-time ultrasound and Doppler techniques (integrating B-mode 2-D vascular images, Doppler spectral analysis and color-flow Doppler imaging) were utilized to interrogate the extracranial carotid arteries, the vertebral arteries and proximal subclavian arteries bilaterally. The degree of stenosis is determined by criteria similar to NASCET. FINDINGS: Right Side: 1. There is minimal atherosclerotic plaque seen in the bifurcation/proximal ICA region. 2. The common carotid artery PSV proximally is 88 cm/s and distally 74 cm/s. 3. The proximal internal carotid artery velocities are 76 cm/s systolic and 22 cm/s diastolic. 4. The proximal external carotid artery PSV is 104 cm/s. 5. The vertebral artery shows antegrade flow. 6. The subclavian artery waveforms are normal. Left Side: 1. There is minimal atherosclerotic plaque seen in the bifurcation/proximal ICA region. 2. The common carotid artery PSV proximally is 90 cm/s and distally 84 cm/s. 3. The proximal internal carotid artery velocities are 95 cm/s systolic and 30 cm/s diastolic. 4. The proximal external carotid artery PSV is 113 cm/s. 5. The vertebral artery shows antegrade flow. 6. The subclavian artery waveforms are normal. US/US carotid duplex BI IMPRESSION: 1. RIGHT: Minimal, non-hemodynamically significant stenosis of the proximal right internal carotid artery corresponding to a 0-49% stenosis by velocity criteria. 2. LEFT: Minimal, non-hemodynamically significant stenosis of the proximal left internal carotid artery corresponding to a 0-49% stenosis by velocity criteria.
== END 2023-06-13 14:33 | disposition home or self-care (01) ==
LOC: HO.US 14:32
PROVIDERS: PCP Registered Nurse; Visit Provider Registered Nurse
DX: R09.89 Other specified symptoms and signs involving the circulatory and respiratory systems (principal)
CPT/HCPCS: 93880

== ENCOUNTER 2023-06-19 08:56 | Outpatient (REF) | payer OTHER, SELFPAY ==
[2023-06-19 12:23] LABS: Anion Gap 12 (12-20); Blood Urea Nitrogen 14 mg/dL (9-16); Calcium 10.1 mg/dL (8.4-10.2); Carbon Dioxide 29 mmol/L (22-29); Chloride 105 mmol/L (96-108); Estimated Glomerular Filt Rate > 60; Glucose Random 95 mg/dL (60-115); Potassium 3.9 mmol/L (3.3-5.1); Sodium 142 mmol/L (135-145)
[2023-06-19 12:38] LABS: Parathyroid Hormone Intact 181.1 pg/mL (8.7-77.1)
[2023-06-19 17:30] LABS: Vitamin D 25-OH Total 46.4 ng/mL (>30)
== END 2023-06-19 08:57 | disposition home or self-care (01) ==
LOC: HO.HHCL 08:56
PROVIDERS: Visit Provider Registered Nurse
DX: E83.52 Hypercalcemia (principal); I10 Essential (primary) hypertension; E04.9 Nontoxic goiter, unspecified
CPT/HCPCS: 36415; 80048; 82306; 83970; 84100

== ENCOUNTER 2023-06-20 11:27 | Emergency (ER) | payer OTHER, SELFPAY ==
--- NOTE | ~2023-06-20 | CT_ITS ---
EXAMINATION: CT HEAD WITHOUT CONTRAST (STROKE PROTOCOL) CLINICAL INFORMATION: Stroke protocol. COMPARISON: None available. TECHNIQUE: Contiguous axial imaging was performed from the skull base to vertex without intravenous administration of contrast. This CT examination was performed using dose optimization techniques as appropriate, variously including the following: *Automated exposure control *Adjustment of mA and/or kV according to patient size (this includes techniques or standardized protocols for targeted exams where dose is matched to indication/reason for exam; i.e. extremities or head) *Use of iterative reconstruction technique DLP: 509 mGy-cm FINDINGS: There is no acute intra-axial, extra-axial bleed, masses or midline shift. There is no acute infarction evolution. There is no edema. The lateral ventricles are symmetrical in size and configuration without enlargement. Mild periventricular hypodensity seen in both cerebral hemispheres mid. There is aneurysm clip along the right parasellar region from previous ICA aneurysm clipping. There is a prominent variant intrasellar hypodensity question empty sella. Bone windows reveal no calvarial abnormality except for right frontal scalp craniotomy changes. The paranasal sinuses and mastoid air sinuses are well-aerated and clear.. CT/CT head for stroke IMPRESSION: 1. No acute intracranial process seen. 2. Mild periventricular hypodensity seen in both cerebral hemispheres mid. This critical result was discussed with Dr. Jorge Alberto Fisher at 11:58 AM by phone. It was ascertained that the content and urgency of the report was understood at the time of direct communication.
--- NOTE | ~2023-06-20 | CT_ITS ---
CT ANGIOGRAM NECK WITH CONTRAST CT ANGIOGRAM BRAIN WITH CONTRAST CLINICAL INFORMATION: Headache and weakness. COMPARISON: Head CT 06/20/2023. TECHNIQUE: Test bolus sequences followed by intravenous administration 70 mL of Omnipaque 350. Helical imaging was performed in the axial plane from the thoracic inlet to the skull vertex. Delayed postcontrast imaging of the head was also performed. The data was processed at the arrt technologist workstation for generation of MIP sequences. Angled MIPs and volume rendered reformatted images were also generated at an offline 3D workstation under concurrent supervision. Stenoses are assessed in accordance with NASCET criteria unless otherwise indicated. This CT examination was performed using dose optimization techniques as appropriate, variously including the following: *Automated exposure control *Adjustment of mA and/or kV according to patient size (this includes techniques or standardized protocols for targeted exams where dose is matched to indication/reason for exam; i.e. 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 Artifact from the surgical clip limits assessment. There is nonspecific hypoattenuation within the supratentorial white matter that is in part symmetric in that is nonspecific. In the setting of headaches and weakness, a brain MRI with and without IV contrast would be recommended for further assessment. The prior CTA from 08/15/2014 could not be retrieved for comparison at the time of dictation. [There is no intracranial hemorrhage, hydrocephalus, extra-axial surface collection, midline shift, or other herniation pattern. Yin to white matter differentiation is diffusely maintained without evidence of an evolved acute territorial infarct. The basilar cisterns are preserved. No significant soft tissue abnormality. 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 CERVICAL SOFT TISSUES AND LUNG APICES: There is biapical pleural parenchymal scarring. Partially imaged tree-in-bud nodular opacities within the right upper lobe for which an infectious/inflammatory process is favored. Small nodules within the thyroid gland that are below size criteria for sonographic follow-up. NECK CTA: [There is a classic 3 vessel configuration of the aortic arch. Proximal arch vessels are non-stenotic. The vertebral arteries are codominant. No significant ostial stenosis is visualized on either side. Both vertebral arteries are widely patent throughout their extracranial cervical course. There is beaded irregularity of the distal cervical internal carotid arteries bilaterally suggesting underlying fibromuscular dysplasia. 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 Artifact from the surgical clip limits assessment however there is a 0.3 cm residual versus recurrent aneurysm just proximal to the surgical clip on image 273 of series 6, there is a 0.15 cm aneurysm projecting inferomedially from the ophthalmic segment of the right internal carotid artery, and there is a large 1.1 cm aneurysm arising from the ophthalmic segment of the more proximal right internal carotid artery that remodels the right anterior clinoid process. Images from the prior CTA study are not available for direct comparison. Neuro interventional consultation and a diagnostic cerebral angiogram are recommended given the clinical history of headaches. There is a 0.4 cm x 0.3 cm aneurysm projecting laterally from the left MCA bifurcation. No acute arterial occlusions and no significant arterial stenoses. CT/CT angio head neck stroke IMPRESSION: - There is nonspecific hypoattenuation within the supratentorial white matter that is in part symmetric and that is nonspecific. In the setting of headaches and weakness, a brain MRI with and without IV contrast would be recommended for further assessment. The prior CTA from 08/15/2014 could not be retrieved for comparison at the time of dictation. No acute arterial occlusions and no significant arterial stenoses within the head or neck. 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 Artifact from the surgical clip limits assessment however there is a 0.3 cm residual versus recurrent aneurysm just proximal to the surgical clip on image 273 of series 6, there is a 0.15 cm aneurysm projecting inferomedially from the ophthalmic segment of the right internal carotid artery, and there is a large 1.1 cm aneurysm arising from the ophthalmic segment of the more proximal right internal carotid artery that remodels the right anterior clinoid process. Images from the prior CTA study are not available for direct comparison. Neuro interventional consultation and a diagnostic cerebral angiogram are recommended given the clinical history of headaches. - There is a 0.4 cm x 0.3 cm aneurysm projecting laterally from the left MCA bifurcation. - There is beaded irregularity of the distal cervical internal carotid arteries bilaterally suggesting underlying fibromuscular dysplasia. 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 - Partially imaged tree-in-bud nodular opacities within the right upper lobe for which an infectious/inflammatory process is favored. Covering provider paged with these findings at 12:38 PM on 06/20/2023
[2023-06-20 11:30] VITALS: BP 214/91; PULSE 89; RESP 20; TEMP 36.9; O2SAT 96; BMI 23.0
--- NOTE | 2023-06-20 11:31 | ED_ITS ---
HPI - General Adult General Chief complaint: Dizziness Stated complaint: high BP, dizzy Time Seen by Provider: 06/20/23 11:47 Related Data Home Medications Medication Instructions Recorded Confirmed rosuvastatin 5 mg tablet 5 mg PO QAM 04/15/20 01/02/23 valsartan 160 mg tablet 160 mg PO BEDTIME 04/15/20 01/02/23 brimonidine 0.2 % eye drops 1 drp ophthalmic (eye) Q12H 10/21/20 01/02/23 Previous Rx's Medication Instructions Recorded amlodipine 10 mg tablet 10 mg PO QAM 90 days #90 tabs 07/07/20 calcium carbonate 600 mg calcium 600 mg PO DAILY 30 days #30 tabs 11/30/20 (1,500 mg) tablet cholecalciferol (vitamin D3) 125 125 mcg PO DAILY #30 caps 07/01/21 mcg (5,000 unit) capsule Allergies Allergy/AdvReac Type Severity Reaction Status Date / Time atorvastatin [Lipitor] Allergy Unknown Unknown Verified 06/20/23 11:36 [facility] Past Medical History Medical History Vitamin D deficiency Hypertension Hypercalcemia Non-toxic multinodular goiter Osteoporosis Surgical History Hx of total hysterectomy Family History Family History Father Unknown family medical history Mother Hypercholesteremia Sister Osteoporosis Social History Social History Household Members: Spouse Alcohol intake: current Alcohol intake frequency: does not drink Patient Tobacco Use Status: Former Tobacco user Quit Date: Over 20 years ago Smoked in Last 30 Days: No Use of substances other than those prescribed or required for medical reasons: No Advance Directives: No Advance Directives Information Provided: No Physical Exam ED Vital Signs: Vital Signs - 24 hr 06/20/23 11:30 06/20/23 13:13 06/20/23 13:22 Temperature 98.5 F 98.0 F Pulse Rate 89 70 58 Respiratory Rate 20 19 184 H Blood Pressure 214/91 H 193/93 H Pulse Oximetry 96 97 Oxygen Delivery Method Room Air Room Air 06/20/23 13:23 06/20/23 14:47 Temperature 98.2 F Pulse Rate 57 78 Respiratory Rate 16 Blood Pressure 197/82 H 201/80 H Pulse Oximetry 98 Oxygen Delivery Method Room Air BMI result Body Mass Index 23.0 Course Course Course Narrative: Patient complains of headache and dizziness which began an hour ago, patient has history of brain bleed 20 years ago which was surgically treated Headache pain started gradually was not thunderclap, and is somewhat improved now, feeling of dizziness remains Elevated blood pressure 214/91 is noted This is a rapid medical exam done in triage prior to full evaluation and disposition by ER provider Medications Administered Discontinued Medications Generic Name Dose Route Start Last Admin Trade Name Freq PRN Reason Stop Dose Admin Diphenhydramine HCl 25 mg 06/20/23 12:43 06/20/23 13:18 Diphenhydramine Hcl 50 Mg/Ml Vial IVPUSH 06/20/23 12:44 Not Given ONCE ONE Iohexol 100 ml 06/20/23 12:01 06/20/23 12:01 Iohexol 350 Mg/Ml 100 Ml Infus..Btl IV 06/20/23 12:02 70 ml ONCE ONE Administration Ketorolac Tromethamine 15 mg 06/20/23 12:43 06/20/23 13:18 Ketorolac Tromethamine 15 Mg/Ml Vial IVPUSH 06/20/23 12:44 Not Given ONCE ONE Metoclopramide HCl 10 mg 06/20/23 12:43 06/20/23 13:18 Metoclopramide Hcl 10 Mg/2 Ml Vial IVPUSH 06/20/23 12:44 Not Given ONCE ONE Valsartan 160 mg 06/20/23 14:11 06/20/23 14:49 Valsartan 160 Mg Tablet PO 06/20/23 14:12 160 mg ONCE ONE Administration Protocol Medical Decision Making Medical Decision Making MDM Narrative: Please see the other note for the complete chart. Lab Data 06/20/23 13:20 06/20/23 13:20 Labs: Lab Results 06/20/23 06/20/23 06/20/23 Range/Units 12:16 12:17 13:20 WBC 7.8 (4.8-10.8) X10*3/uL RBC 4.03 L (4.20-5.50) X10*6/uL Hgb 12.3 (12.0-16.0) g/dl Hct 36.8 L (37.0-47.0) % MCV 91.3 (80.0-98.0) fL MCH 30.5 (27.0-33.0) pg MCHC 33.4 (31.0-35.0) g/dl RDW 12.7 (11.0-16.0) % Plt Count 242 (160-400) X10*3/uL MPV 9.5 (9.4-12.3) fL Immature Gran % (Auto) 0.5 H (0.0-0.4) % Neut % (Auto) 69.3 (45-73) % Lymph % (Auto) 21.7 (20-40) % [place] % (Auto) 5.9 (2-11) % Eos % (Auto) 2.0 (0-4) % Baso % (Auto) 0.6 (0-2) % Lymph # (Auto) 1.7 (1.2-4.9) X10*3/uL [place] # (Auto) 0.5 (0.1-1.2) X10*3/uL Eos # (Auto) 0.2 (0.0-0.4) X10*3/uL Baso # (Auto) 0.1 (0.0-0.2) X10*3/uL Abs Immat Gran (auto) 0.04 H (0.00-0.03) X10*3/uL Absolute Neuts (auto) 5.4 (2.0-8.3) x10*3/uL Absolute Nucleated RBC 0.000 (0.0-0.012) X10*3/uL Nucleated RBC % (auto) 0.0 (0.0-0.2) /100WBC ESR 44 H (0-20) MM/HR PT 11.4 (11.1-13.3) SEC Whole Blood PT 12.4 (11.1-13.5) sec INR 0.9 (0.9-1.1) Whole Blood INR 1.0 (0.9-1.1) Sodium 141 (135-145) mmol/L Potassium 3.6 (3.3-5.1) mmol/L Chloride 104 (96-108) mmol/L Carbon Dioxide 27 (22-29) mmol/L Anion Gap 14 (12-20) BUN 10 (9-16) mg/dL Creatinine 0.74 (0.5-1.4) mg/dL Estim Creat Clear Calc 58.5 Estimated GFR > 60 POC Glucose 96 (60-115) mg/dL Random Glucose 96 (60-115) mg/dL Calcium 10.2 (8.4-10.2) mg/dL Troponin I High Sens < 2.7 (<3.5-17.0) ng/L C-Reactive Protein 0.23 (< or = 0.50) mg/dL Discharge Plan Discharge Clinical Impression: Hypertension, Headache Patient Disposition: Home, Self-Care Instructions: Acute Headache (ED), Chronic Hypertension (ED) Prescriptions: No Action amlodipine 10 mg tablet 10 mg PO QAM 90 Days Qty: 90 1RF calcium carbonate 600 mg calcium (1,500 mg) tablet 600 mg PO DAILY 30 Days Qty: 30 11RF cholecalciferol (vitamin D3) 125 mcg (5,000 unit) capsule 125 mcg PO DAILY Qty: 30 5RF brimonidine 0.2 % drops 1 drp ophthalmic (eye) Q12H valsartan 160 mg tablet 160 mg PO BEDTIME rosuvastatin 5 mg tablet 5 mg PO QAM Referrals: [facility] [Primary Care Provider] - 06/21/23 (Get blood pressure recheck in 24-48 hours)
--- NOTE | 2023-06-20 11:35 | ECG_ITS ---
Test Reason : Dizzy Blood Pressure : / mmHG Vent. Rate : 085 BPM Atrial Rate : 085 BPM P-R Int : 138 ms QRS Dur : 068 ms QT Int : 340 ms P-R-T Axes : 057 079 052 degrees QTc Int : 404 ms Normal sinus rhythm Nonspecific T wave abnormality Abnormal ECG No previous ECGs available Referred By: Malcolm Acharya Electronically Signed By:Red Nava
[2023-06-20] MEDS: iohexoL 350 MG/ML 100 ML INFUS..BTL IV (12:01)
[2023-06-20 12:25] LABS: Prothrombin Time Whole Bld POC 12.4 sec (11.1-13.5)
[2023-06-20 12:27] LABS: Glucose, Whole Blood 96 mg/dL (60-115)
--- NOTE | 2023-06-20 12:55 | PC.NURSE ---
PT'S DAUGHTER VICK ([phone]). PLZ CALL HER IF THERE IS ANY UPDATE/STATUS ON PT.
--- NOTE | 2023-06-20 12:58 | PC.NURSE ---
PT SEEN BY DR. GRAHAM (HOME BUILDER). PT/FAMILY AWARE OF PLAN OF CARE.
[2023-06-20 13:13] VITALS: BP 193/93; PULSE 70; RESP 19; TEMP 36.7; O2SAT 97
[2023-06-20 13:22] VITALS: PULSE 58; RESP 184
[2023-06-20 13:23] VITALS: BP 197/82; PULSE 57
[2023-06-20 13:28] LABS: MANUAL DIFF FLAG NO
[2023-06-20 13:33] LABS: Basophils Absolute Auto 0.1 X10*3/uL (0.0-0.2); Basophils Percent Auto 0.6 % (0-2); Eosinophils Absolute Auto 0.2 X10*3/uL (0.0-0.4); Hematocrit 36.8 % (37.0-47.0); Hemoglobin 12.3 g/dl (12.0-16.0); Imm Gran Abs Auto 0.04 X10*3/uL (0.00-0.03); Imm Gran Pct Auto 0.5 % (0.0-0.4); Lymphocytes Absolute Auto 1.7 X10*3/uL (1.2-4.9); Lymphocytes Percent Auto 21.7 % (20-40); Mean Corpuscular HGB Conc 33.4 g/dl (31.0-35.0); Mean Corpuscular Hemoglobin 30.5 pg (27.0-33.0); Mean Corpuscular Volume 91.3 fL (80.0-98.0); Mean Platelet Volume 9.5 fL (9.4-12.3); Monocytes Absolute Auto 0.5 X10*3/uL (0.1-1.2); Monocytes Percent Auto 5.9 % (2-11); Neutrophils Absolute Auto 5.4 x10*3/uL (2.0-8.3); Neutrophils Percent Auto 69.3 % (45-73); Platelet Count 242 X10*3/uL (160-400); Red Blood Count 4.03 X10*6/uL (4.20-5.50); Red Cell Distribution Width 12.7 % (11.0-16.0); White Blood Count 7.8 X10*3/uL (4.8-10.8)
[2023-06-20 13:39] LABS: INTERNATIONAL NORM RATIO 0.9 (0.9-1.1); Prothrombin Time 11.4 SEC (11.1-13.3)
[2023-06-20 13:41] LABS: C Reactive Protein 0.23 mg/dL (< or = 0.50)
[2023-06-20 13:42] LABS: Anion Gap 14 (12-20); Blood Urea Nitrogen 10 mg/dL (9-16); Calcium 10.2 mg/dL (8.4-10.2); Carbon Dioxide 27 mmol/L (22-29); Chloride 104 mmol/L (96-108); Creatinine Clr Calc Pharmacy 58.5; Estimated Glomerular Filt Rate > 60; Glucose Random 96 mg/dL (60-115); Potassium 3.6 mmol/L (3.3-5.1); Sodium 141 mmol/L (135-145)
[2023-06-20 13:50] LABS: Troponin-I High Sensitivity < 2.7 ng/L (<3.5-17.0)
--- NOTE | 2023-06-20 13:53 | ED_ITS ---
HPI - Headache General Chief Complaint: Dizziness Stated Complaint: high BP, dizzy Time Seen by Provider: 06/20/23 11:47 History of Present Illness HPI Narrative: Patient is 68 years old with a history of hypertension, hypercholesterolemia, history of cerebral aneurysms status post clips done presented today with having extreme headache sudden in onset at approximately 08:00. No focal weakness. No chest pain no diaphoresis. Baseline she is on amlodipine, valsartan for hypertension. Patient claims compliance with her medications. Took her medication this morning. No fever no chills. No neck pain. No diaphoresis. No focal weakness. MD elicited complaint: headache Related Data Home Medications Medication Instructions Recorded Confirmed rosuvastatin 5 mg tablet 5 mg PO QAM 04/15/20 01/02/23 valsartan 160 mg tablet 160 mg PO BEDTIME 04/15/20 01/02/23 brimonidine 0.2 % eye drops 1 drp ophthalmic (eye) Q12H 10/21/20 01/02/23 Previous Rx's Medication Instructions Recorded amlodipine 10 mg tablet 10 mg PO QAM 90 days #90 tabs 07/07/20 calcium carbonate 600 mg calcium 600 mg PO DAILY 30 days #30 tabs 11/30/20 (1,500 mg) tablet cholecalciferol (vitamin D3) 125 125 mcg PO DAILY #30 caps 07/01/21 mcg (5,000 unit) capsule Allergies Allergy/AdvReac Type Severity Reaction Status Date / Time atorvastatin [Lipitor] Allergy Unknown Unknown Verified 06/20/23 11:36 Review of Systems 2 Review of Systems: Positive headache No fever no chills no focal weakness Yes all other systems are reviewed and are negative [facility] Past Medical History Attestation statement: The following information was validated with the patient. Medical History Vitamin D deficiency Hypertension Hypercalcemia Non-toxic multinodular goiter Osteoporosis Surgical History Hx of total hysterectomy Family History Family History Father Unknown family medical history Mother Hypercholesteremia Sister Osteoporosis Social History Social History Household Members: Spouse Alcohol intake: current Alcohol intake frequency: does not drink Patient Tobacco Use Status: Former Tobacco user Quit Date: Over 20 years ago Smoked in Last 30 Days: No Use of substances other than those prescribed or required for medical reasons: No Advance Directives: No Advance Directives Information Provided: No Physical Exam 2 Vital Signs: Vital Signs: Last Vital Signs Temp 98.2 F 06/20/23 14:47 Pulse 78 06/20/23 14:47 Resp 16 06/20/23 14:47 BP 201/80 H 06/20/23 14:47 Pulse Ox 98 06/20/23 14:47 O2 Del Method Room Air 06/20/23 14:47 BMI result Body Mass Index 23.0 Appearance: Alert. Oriented X3. No acute distress. Eyes: Pupils equal, round and reactive to light. ENT: Pharynx normal. Neck: Normal inspection. Neck supple. No lymph nodes noted. No crepitus CVS: Normal heart rate and rhythm. Pulses normal. Normal S1 and S2 Respiratory: No respiratory distress. Breath sounds normal. No Wheezing. No rales Abdomen: Soft and nontender. No rigidity. No distention. good BS x4 Skin: Skin warm and dry. Normal skin color. Normal skin turgor. Extremities: No lower extremity edema. Neurovascular intact to all extremities. No Lacerations. No Rash Neuro: Oriented X 3. No motor deficit. No sensory deficit. Moving all extermities. No slurred speech NIH Stroke Scale Level of Consciousness: Alert Level of Consciousness Questions: Answers both questions correctly Level of Consciousness Commands: Performs both tasks correctly Best Gaze: Normal Visual: No visual loss Facial Palsy: Normal Motor Arm (Right): No drift Motor Arm (Left): No drift Motor Leg (Right): No drift Motor Leg (Left): No drift Limb Ataxia: Absent Sensory: Normal Best Language: No aphasia Dysarthia: Normal Extinction and Inattention: No abnormality Score: 0 Medications Administered Discontinued Medications Generic Name Dose Route Start Last Admin Trade Name Freq PRN Reason Stop Dose Admin Diphenhydramine HCl 25 mg 06/20/23 12:43 06/20/23 13:18 Diphenhydramine Hcl 50 Mg/Ml Vial IVPUSH 06/20/23 12:44 Not Given ONCE ONE Iohexol 100 ml 06/20/23 12:01 06/20/23 12:01 Iohexol 350 Mg/Ml 100 Ml Infus..Btl IV 06/20/23 12:02 70 ml ONCE ONE Administration Ketorolac Tromethamine 15 mg 06/20/23 12:43 06/20/23 13:18 Ketorolac Tromethamine 15 Mg/Ml Vial IVPUSH 06/20/23 12:44 Not Given ONCE ONE Metoclopramide HCl 10 mg 06/20/23 12:43 06/20/23 13:18 Metoclopramide Hcl 10 Mg/2 Ml Vial IVPUSH 06/20/23 12:44 Not Given ONCE ONE Valsartan 160 mg 06/20/23 14:11 06/20/23 14:49 Valsartan 160 Mg Tablet PO 06/20/23 14:12 160 mg ONCE ONE Administration Protocol Medical Decision Making Medical Decision Making [facility] Narrative: Patient has a history of cerebral aneurysm. Presented with having headache and elevated blood pressure of 220/103. Patient states that he did not take any medication for last evening. Took her blood pressure this morning. On further evaluation patient's post to be taking amlodipine 10 mg in the morning losartan 160 mg in the evening. Patient was rushed to get a CT scan of the head to rule out possibility of bleeding. CT head done at approximately 12 noon was grossly negative for any acute evidence of bleeding. This was done within 5 hours the patient has headache. He CTA was done. No large vessel occlusion was noted. Clips were noted. No significant bleed was noted aneurysm were described as both proximally the same size. Patient given a dose of her losartan as she most likely missed her dose. Blood pressure came down to 180/77. Patient's sed rate is 46 patient's CRP is negative. He is 68 years old unlikely to have temporal arteritis patient to be discharged home. Close follow-up on an outpatient basis. Upon returning from scan patient's headache has completely gone away. There has no gross visual changes. Differential Diagnosis Differential Diagnoses: The differential diagnosis associated with the presentation includes Intracranial bleed, meningitis, fracture, mass, temporal arteritis, tension headache, hypertension Admission/Observation Consideration of admission/observation: Escalation of care including admission/observation considered Lab Data [facility] Lab Attestation statement: I reviewed the patient's lab results. 06/20/23 13:20 06/20/23 13:20 Labs: Lab Results 06/20/23 06/20/23 06/20/23 Range/Units 12:16 12:17 13:20 WBC 7.8 (4.8-10.8) X10*3/uL RBC 4.03 L (4.20-5.50) X10*6/uL Hgb 12.3 (12.0-16.0) g/dl Hct 36.8 L (37.0-47.0) % MCV 91.3 (80.0-98.0) fL MCH 30.5 (27.0-33.0) pg MCHC 33.4 (31.0-35.0) g/dl RDW 12.7 (11.0-16.0) % Plt Count 242 (160-400) X10*3/uL MPV 9.5 (9.4-12.3) fL Immature Gran % (Auto) 0.5 H (0.0-0.4) % Neut % (Auto) 69.3 (45-73) % Lymph % (Auto) 21.7 (20-40) % [place] % (Auto) 5.9 (2-11) % Eos % (Auto) 2.0 (0-4) % Baso % (Auto) 0.6 (0-2) % Lymph # (Auto) 1.7 (1.2-4.9) X10*3/uL [place] # (Auto) 0.5 (0.1-1.2) X10*3/uL Eos # (Auto) 0.2 (0.0-0.4) X10*3/uL Baso # (Auto) 0.1 (0.0-0.2) X10*3/uL Abs Immat Gran (auto) 0.04 H (0.00-0.03) X10*3/uL Absolute Neuts (auto) 5.4 (2.0-8.3) x10*3/uL Absolute Nucleated RBC 0.000 (0.0-0.012) X10*3/uL Nucleated RBC % (auto) 0.0 (0.0-0.2) /100WBC ESR 44 H (0-20) MM/HR PT 11.4 (11.1-13.3) SEC Whole Blood PT 12.4 (11.1-13.5) sec INR 0.9 (0.9-1.1) Whole Blood INR 1.0 (0.9-1.1) Sodium 141 (135-145) mmol/L Potassium 3.6 (3.3-5.1) mmol/L Chloride 104 (96-108) mmol/L Carbon Dioxide 27 (22-29) mmol/L Anion Gap 14 (12-20) BUN 10 (9-16) mg/dL Creatinine 0.74 (0.5-1.4) mg/dL Estim Creat Clear Calc 58.5 Estimated GFR > 60 POC Glucose 96 (60-115) mg/dL Random Glucose 96 (60-115) mg/dL Calcium 10.2 (8.4-10.2) mg/dL Troponin I High Sens < 2.7 (<3.5-17.0) ng/L C-Reactive Protein 0.23 (< or = 0.50) mg/dL Independent Interpretation I performed an independent interpretation of an: EKG (EKG showed a sinus rhythm heart rate is 85 PA QRS QTC within normal limits is no acute ST segment elevation noted.) and CT Scan (I reviewed patient's CT scan of the head which was grossly negative for any acute evidence of bleeding.) Radiology Impression Discussion of test interpretation with radiology: I have reviewed the radiologist's reading. Independent Historian Clinical information obtained from an independent historian. History obtained from or confirmed by: Other (Patient's family) External Record Review External record reviewed: Inpatient record Chronic Conditions Patient?s care impacted by: Hypertension History of cerebral aneurysm Discharge Plan Discharge Clinical Impression: Hypertension, Headache Patient Disposition: Home, Self-Care Instructions: Chronic Hypertension (ED), Acute Headache (ED) Prescriptions: No Action amlodipine 10 mg tablet 10 mg PO QAM 90 Days Qty: 90 1RF calcium carbonate 600 mg calcium (1,500 mg) tablet 600 mg PO DAILY 30 Days Qty: 30 11RF cholecalciferol (vitamin D3) 125 mcg (5,000 unit) capsule 125 mcg PO DAILY Qty: 30 5RF brimonidine 0.2 % drops 1 drp ophthalmic (eye) Q12H valsartan 160 mg tablet 160 mg PO BEDTIME rosuvastatin 5 mg tablet 5 mg PO QAM Referrals: [facility] [Primary Care Provider] - 06/21/23 (Get blood pressure recheck in 24-48 hours)
[2023-06-20 14:18] LABS: Erythrocyte Sedimentation Rate 44 MM/HR (0-20)
[2023-06-20 14:47] VITALS: BP 201/80; PULSE 78; RESP 16; TEMP 36.8; O2SAT 98
[2023-06-20] MEDS: Valsartan 160 MG TABLET PO (14:49)
== END 2023-06-20 17:06 | disposition home or self-care (01) ==
PROVIDERS: Physician Assistant Medical; Emergency Provider Emergency Medicine Emergency Medical Services
DX: R51.9 Headache, unspecified (principal); I10 Essential (primary) hypertension; R42 Dizziness and giddiness; Z79.899 Other long term (current) drug therapy
CPT/HCPCS: 36415; 70450; 70496; 70498; 80048; 82947; 84484; 85025; 85610; 85652; 86140; 93005; 99285; Q9967

== ENCOUNTER → 2023-06-20 11:35 | Outpatient (BNV) | payer OTHER, SELFPAY | PROVIDERS: Emergency Provider Emergency Medicine Emergency Medical Services; Visit Provider Internal Medicine Cardiovascular Disease | DX: R94.31 Abnormal electrocardiogram [ECG] [EKG] (principal) | CPT/HCPCS: 93010 ==

== ENCOUNTER 2023-08-23 14:46 | Outpatient (AMB) | payer OTHER, SELFPAY ==
--- NOTE | 2023-08-23 14:47 | MHC.OFFVIS ---
Intake Vital Signs 08/23/23 14:48 Height 5 ft 3 in Weight 126 lb 12.253 oz BMI 22.5 BP 158/74 H Blood Pressure Location Lt brachial Position Sitting Pulse 82 Pulse Source Pulse Oximeter Intake Visit Reasons: Osteoporosis-confirmed Intake Note: Patient present today for Osteoporosis follow up visit. Frame Feeder Required: Yes Frame Feeder Language: Tour Sales Representative Name: Bonnie Information Interpreted: non-clinical & clinical Accompanied by: Self / Same As Patient Allergies atorvastatin [Lipitor] Allergy (Unknown, Verified 08/23/23 14:55) Unknown HPI HPI Comments History of Present Illness Details 68-year-old female today for follow-up , for osteoporosis and multinodular goiter. She had fine-needle aspiration of left lower pole nodule on 08/13/2020, cytology was consistent with benign follicular nodule [place] category 2. She was initially seen this practice of 09/27/[address] Lobo. Was started the patient on Fosamax 70 mg weekly.Stopped alendronate 4 wks ago After reviewing Dr. Lobo is initial consultation note she had intact PTH is 54 PG/mL. Serum calcium levels range from 9.7-10.3 mg/dL. She denies prior fractures, no history of GERD, She has positive FH of osteoporosis in her sister, she denies nephrolithiasis, she denies steroids used, never smoker smoker, she denies PPIs, she denies antidepressive and anti seizures medications, Denies negative History of head or neck irradiation. Bisphosphonates use: 09/27/2016 Calcium intake: 600 mg +200 units of vitamin-D once a day Herbal medications. none. 12/23/2019 Dexa scan AP SPINE L1-L4: Current: BMD 0.921 g/cm2, Z-score -0.3, T-score -2.2, osteopenia, 5.6% increase from previous, 0.1% increase from baseline (<5% change is not significant). Prior: BMD 0.872 g/cm2. Baseline: BMD 0.920 g/cm2. LEFT FEMUR, NECK: Current: BMD 0.734 g/cm2, Z-score -0.5, T-score -2.2, osteopenia. Prior: BMD 0.751 g/cm2. Baseline: BMD 0.752 g/cm2. LEFT FEMUR, TOTAL: Current: BMD 0.862 g/cm2, Z-score 0.3, T-score -1.2, osteopenia, 0.9% decrease from previous, 0.1% decrease from baseline (<5% change is not significant). Prior: BMD 0.870 g/cm2. Baseline: BMD 0.863 g/cm2. LEFT FOREARM RADIUS 33%: BMD 0.820 g/cm2, Z-score 0.9, T-score -0.6, normal. Prior: Not previously measured. 10/23/2019 US thyroid Right Thyroid Lobe: 4.1 x 1.0 x 1.4 cm, volume 3.0 mL. Parenchyma: The gland echotexture is homogeneous. Thyroid vascularity is normal. Left Thyroid Lobe: 4.3 x 1.4 x 1.5 cm, volume 4.7 mL. Parenchyma: The gland echotexture is homogeneous. Thyroid vascularity is normal. Isthmus: 0.3 cm in maximum AP dimension. RIGHT THYROID LOBE: The largest 4 nodules are measured. 1. Location: Superior. Size: 0.3 x 0.5 x 0.5 cm. Nodule characteristics: Hypoechoic with smooth margins and no Doppler detectable vascular flow. 2. Location: Superior. Size: 0.4 x 0.2 x 0.3 cm. Nodule characteristics: Complex with cystic and solid components, smooth margins, and no Doppler detectable vascular flow. 3. Location: Middle. Size: 0.3 x 0.3 x 0.2 cm. Nodule characteristics: Simple cyst with smooth margins and no Doppler detectable vascular flow. 4. Location: Inferior. Size: 0.5 x 0.3 x 0.4 cm. Nodule characteristics: Simple cyst with smooth margins and no Doppler detectable vascular flow. ISTHMUS: No nodules. LEFT THYROID LOBE: The largest 4 nodules are measured. 1. Location: Superior. Size: 0.7 x 0.5 x 0.6 cm. Nodule characteristics: Hypoechoic with smooth margins and no Doppler detectable vascular flow. 2. Location: Middle. Size: 0.2 x 0.2 x 0.2 cm. Nodule characteristics: Simple cyst with smooth margins and no Doppler detectable vascular flow. 3. Location: Middle. Size: 0.2 x 0.1 x 0.2 cm. Nodule characteristics: Simple cyst with smooth margins and no Doppler detectable vascular flow. 4. Location: Inferior. Size: 1.8 x 1.1 x 1.3 cm. Nodule characteristics: Complex cystic with smooth margins and no Doppler detectable vascular flow. 04/08/2019 Hemoglobin 12.5 grams/deciliter Hematocrit 35.7% Creatinine 0.89 mg/dL GFR more than 60 mL/minute Calcium 10.7 mg/dL Albumin 4.9 g per dL Alkaline phosphatase 86 units/liter 10/11/2016 NTX 15 05/03/2018 vitamin-D 48 ng per dL Trended calcium from 2015 to 2018 range 10.1-10.7 mg/dL. Prior to that all her calcium were in the upper limit of normal. 01/08/2016 PTH 54 pg/mL, Calcium 10.2 mg/dL, albumin 4.6 grams/deciliter 07/05/2017 PTH 42 pg/mL, Calcium 10.2 mg/dL, albumin 4.5 grams/deciliter 05/03/2018 PTH 51 pg/mL Calcium 10.4 mg per dL, albumin 4.4 grams/deciliter. Laboratory Tests 03/04/20 03/04/20 04/10/20 08:10 08:10 08:00 Creatinine Estimated GFR Calcium Alkaline Phosphata se Albumin 1,25 Dihydroxy Vit D 54 1,25 Dihydroxy Vit D2 <8 25-OH Vitamin D To robert TSH 2.49 Free T4 1.24 PTH Intact Calcium (PTH Intac t) Ur 24 Hour Volume Ur Creatinine mg/d L Ur Calcium 24 Hr 69 Calcium/Creat 24 H r 161 04/10/20 04/15/20 04/15/20 08:00 13:55 13:55 Creatinine Estimated GFR Calcium 10.4 H Alkaline Phosphata se Albumin 1,25 Dihydroxy Vit D 1,25 Dihydroxy Vit D2 25-OH Vitamin D To robert TSH Free T4 PTH Intact 47 Calcium (PTH Intac t) 10.7 H Ur 24 Hour Volume 500 Ur Creatinine mg/d L 85.07 Ur Calcium 24 Hr Calcium/Creat 24 H r 05/18/20 09/09/20 08:45 08:00 Creatinine 0.83 Estimated GFR > 60 Calcium 10.1 10.3 H Alkaline Phosphata se 99 Albumin 4.6 1,25 Dihydroxy Vit D 1,25 Dihydroxy Vit D2 25-OH Vitamin D To robert 37.4 TSH Free T4 PTH Intact Calcium (PTH Intac t) Ur 24 Hour Volume Ur Creatinine mg/d L Ur Calcium 24 Hr Calcium/Creat 24 H r Laboratory Tests 10/10/19 10/10/19 03/04/20 12:50 13:05 08:10 TSH 2.49 Free T4 1.24 PTH Intact Calcium (PTH Intac t) Ur 24 Hour Volume Urine Creatinine 53 Ur Calcium 24 Hr Calcium/Creat 24 H r Bone Specific Alk Phos 10.1 03/04/20 04/10/20 04/10/20 08:10 08:00 08:00 TSH Free T4 PTH Intact 54 Calcium (PTH Intac t) 9.7 Ur 24 Hour Volume 500 Urine Creatinine Ur Calcium 24 Hr 69 Calcium/Creat 24 H r 161 Bone Specific Alk Phos repeat labs off hydrochlorothiazide and alendronate show elevation in PTH and calcium consistent with primary hyperparathyroidism PFSH Medical History Vitamin D deficiency Hypertension Hypercalcemia Non-toxic multinodular goiter Osteoporosis Surgical History Hx of total hysterectomy Family History Father Unknown family medical history Mother Hypercholesteremia Sister Osteoporosis Social History Household Members: Spouse Alcohol intake: current Alcohol intake frequency: does not drink Patient Tobacco Use Status: Former Tobacco user Quit Date: Over 20 years ago Physical Exam Vital Signs: Last Vital Signs Pulse 82 08/23/23 14:48 BP 158/74 H 08/23/23 14:48 BMI result Body Mass Index 22.5 Assessment & Plan Assessment & Plan (1) Osteoporosis: Code(s): M81.0 - Age-related osteoporosis without current pathological fracture Plan: This 68-year-old female with history of low bone mass currently being treated with alendronate . She was found to have mildly elevated PTH and calcium off alendronate but on chlorthalidone The plan is to talk to the patient to talk to the PCP about holding chlothaladone for 6 wks and recheck calcium and albumin and PTH . Have hold calcium supplementation for now. If there is no evidence for primary hyperparathyroidism , then consideration of either repeating DEXA as results recently show disproportionate discrease in femur likely due to artifact . (2) Non-toxic multinodular goiter: Code(s): E04.2 - Nontoxic multinodular goiter Plan: Status post FNA of a left lower pole nodule with benign cytology. Ultrasounds have been stable. Perhaps, a repeat thyroid ultrasound can be obtained in 1-2 years time by the patient's primary care provider and followed every 2-3 years time assuming stability of the nodules. If there is any change in the size of the nodules, the patient returned back to endocrinology (3) Hypercalcemia: Code(s): E83.52 - Hypercalcemia Plan: Will recheck calcium along with PTH and 25 - vitamin-D Coding Level of Care Code Est Pt Level 3 (61017) Diagnoses Osteoporosis M81.0 Non-toxic multinodular goiter E04.2 Hypercalcemia E83.52
[2023-08-23 14:48] VITALS: BP 158/74; PULSE 82; BMI 22.5
== END 2023-08-23 15:20 | disposition home or self-care (01) ==
PROVIDERS: PCP Internal Medicine; Visit Provider Internal Medicine Endocrinology, Diabetes & Metabolism
DX: M81.0 Age-related osteoporosis without current pathological fracture (principal); E04.2 Nontoxic multinodular goiter; E83.52 Hypercalcemia
CPT/HCPCS: 99213

== ENCOUNTER → 2023-08-23 14:46 | Outpatient (BNVA) | payer OTHER, SELFPAY | PROVIDERS: PCP Internal Medicine; Visit Provider Internal Medicine Endocrinology, Diabetes & Metabolism | DX: M81.0 Age-related osteoporosis without current pathological fracture (principal); E04.2 Nontoxic multinodular goiter; E83.52 Hypercalcemia | CPT/HCPCS: 99212 ==

== ENCOUNTER 2023-09-26 07:19 | Outpatient (REF) | payer OTHER, SELFPAY ==
[2023-09-26 08:33] LABS: Albumin Level 4.4 g/dL (3.5-5.0); Calcium 10.6 mg/dL (8.4-10.2)
[2023-09-26 08:38] LABS: Parathyroid Hormone Intact 111.9 pg/mL (8.7-77.1)
== END 2023-09-26 07:20 | disposition home or self-care (01) ==
LOC: HO.LAB 07:19
PROVIDERS: PCP Registered Nurse; Visit Provider Internal Medicine Endocrinology, Diabetes & Metabolism
DX: E83.52 Hypercalcemia (principal)
CPT/HCPCS: 36415; 82040; 82310; 83970

== ENCOUNTER 2023-10-04 10:03 | Outpatient (REF) | payer OTHER, SELFPAY ==
--- NOTE | ~2023-10-04 | MM_ITS ---
EXAMINATION: MM SCREENING DIGITAL BREAST TOMOSYNTHESIS, BILATERAL CLINICAL INFORMATION: Screening. Asymptomatic. COMPARISON: Mammography: This study is compared with prior exams dating back to 2019. TECHNIQUE: Digital breast tomosynthesis is performed in both the craniocaudal and mediolateral oblique views along with computer-aided detection (CAD). Synthesized 2D images are generated from the tomosynthesis. FINDINGS: The breasts are heterogeneously dense, which may obscure small masses (ACR BI-RADS breast composition Category c). There are no significant masses, abnormal calcifications, or other abnormalities. Few, bilateral, benign calcifications are present. MM/MM tomosynthesis screening BI IMPRESSION: No mammographic evidence of malignancy. ASSESSMENT: BI-RADS BI-RADS 2 - Benign Findings RECOMMENDATION: Routine annual mammography screening. 1 year F/U This examination should not preclude the clinical evaluation of a suspicious palpable abnormality. This patient's information was entered into a reminder system with a target due date for their next mammogram.
== END 2023-10-04 10:04 | disposition home or self-care (01) ==
LOC: HO.MAMMO 10:03
PROVIDERS: PCP Registered Nurse; Visit Provider Registered Nurse
DX: Z12.31 Encounter for screening mammogram for malignant neoplasm of breast (principal)
CPT/HCPCS: 77063; 77067

== ENCOUNTER → 2023-10-04 10:30 | Outpatient (BNV) | payer OTHER, SELFPAY | PROVIDERS: PCP Registered Nurse; Visit Provider Radiology Diagnostic Radiology | DX: Z12.31 Encounter for screening mammogram for malignant neoplasm of breast (principal) | CPT/HCPCS: 77063; 77067 ==

== ENCOUNTER 2023-12-07 13:36 | Outpatient (AMB) | payer OTHER, SELFPAY ==
[2023-12-07 13:43] VITALS: BP 152/68; PULSE 92; O2SAT 96; BMI 22.1
--- NOTE | 2023-12-07 13:43 | HO.NEPHOV_ITS ---
Vital Signs 12/07/23 13:43 Height 5 ft 3 in Weight 125 lb BMI 22.1 BP 152/68 H Blood Pressure Location Rt brachial Position Sitting Pulse 92 Pulse Source Pulse Oximeter Pulse Oximetry (%) 96 Oxygen Delivery Method Room Air Intake Visit Reasons: Labile HTN/ Conf Intake Note: [facility] fisher trap declined filled out refusal form and scanned into chart. Bilingual Office Assistant Required: Yes Bilingual Office Assistant Services: Bilingual Office Assistant Offered & Declined Accompanied by: Friend Allergies atorvastatin [Lipitor] Allergy (Unknown, Verified 08/23/23 14:55) Unknown Medication List - Last Reviewed 12/07/23 by MAC Peguero amlodipine 5 mg PO DAILY brimonidine 0.2% 1 drp ophthalmic (eye) Q12H calcium carbonate 600 mg PO DAILY 30 days chlorthalidone 25 mg PO DAILY clopidogrel 75 mg PO DAILY olmesartan 40 mg PO DAILY rosuvastatin 20 mg PO BEDTIME HPI Comments Details: 68-year-old woman with a history of hypertension and hyperlipidemia who has a history of cerebral aneurysm has been referred for evaluation of hypertension. She has had labile hypertension and has had significant fluctuating blood pressure readings. She is currently on amlodipine chlorthalidone and olmesartan. Based on the history it appears that there could be an issue with the compliance She was accompanied by a family member was able to translate. History of hypercalcemia due to primary hyperparathyroidism. She has been followed by endocrinology. [facility] Medical History Vitamin D deficiency Hypertension Hypercalcemia Non-toxic multinodular goiter Osteoporosis Surgical History Hx of total hysterectomy Family History Father Unknown family medical history Mother Hypercholesteremia Sister Osteoporosis Social History Household Members: Spouse Alcohol intake: current Alcohol intake frequency: does not drink Patient Tobacco Use Status: Former Tobacco user Review of Systems Const Denies fever(s) and Denies weight loss Card Denies chest pain Resp Denies cough and Denies hemoptysis GI Denies abdominal pain, Denies diarrhea and Denies nausea Musc Denies back pain Neuro Denies focal weakness Physical Exam Vital Signs: Last Vital Signs Pulse 92 12/07/23 13:43 BP 152/68 H 12/07/23 13:43 Pulse Ox 96 12/07/23 13:43 Oxygen Delivery Method Room Air 12/07/23 13:43 BMI result Body Mass Index 22.1 Const General: comfortable; No acute distress Orientation/consciousness: patient oriented x3 Eyes General: appearance normal, both eyes and all related structures Visual Elizondo: normal visual elizondo by confrontation Neck Neck: Yes supple and Yes no JVD Resp Effort & Inspection: normal respiratory effort and respiratory effort not decreased Auscultation: rhonchi Cardio Palpation: no palpable S3 and no palpable S4 Heart sounds: no rubs GI Inspection: Yes normal to inspection Palpation (GI): Soft to palpation Percussion: Yes normal to percussion Auscultation: normal bowel sounds General: Yes no CVA tenderness Back/Spine/Pelvis Back: no CVA tenderness Skin General skin exam: no petechiae and no purpura Neuro General: patient oriented x3 and no focal motor deficits Extrem General: No clubbing and No edema Results Reviewed Nephrology Results: Hgb 12.3 g/dl (12.0-16.0) 06/20/23 WBC 7.8 X10*3/uL (4.8-10.8) 06/20/23 Plt Count 242 X10*3/uL (160-400) 06/20/23 Sodium 141 mmol/L (135-145) 06/20/23 Potassium 3.6 mmol/L (3.3-5.1) 06/20/23 Chloride 104 mmol/L (96-108) 06/20/23 Carbon Dioxide 27 mmol/L (22-29) 06/20/23 BUN 10 mg/dL (9-16) 06/20/23 Creatinine 0.74 mg/dL (0.5-1.4) 06/20/23 Calcium 10.6 mg/dL (8.4-10.2) H 09/26/23 Phosphorus 3.0 mg/dL (2.7-4.5) 06/19/23 PTH Intact 111.9 pg/mL (8.7-77.1) H 09/26/23 Assessment & Plan Assessment & Plan (1) Hypercalcemia: Code(s): E83.52 - Hypercalcemia Category: Medical (2) Hypertension: Code(s): I10 - Essential (primary) hypertension Category: Medical Plan 68-year-old man with history of labile hypertension cerebral aneurysm. History of hypercalcemia due to primary hyperparathyroidism. I have initiated a workup. We will start with a 24 hour blood pressure monitor ing. Based on this we can readjust her medications. Encouraged her to stand low-sodium diet. She had mild hypokalemia and alkalosis. Although this could be due to the use of diuretics, primary hyper aldosteronism should be ruled out. I will check serum aldosterone and plasma renin activity. She returned to office once the baseline workup is completed I will keep you updated. Thank you Orders: Orders AMB 24 HR B/P Monitor PLACEMENT Today I10 - Essential (primary) hypertension Complete Blood Count Auto Diff Today E83.52 - Hypercalcemia, I10 - Essential (primary) hypertension Aldosterone Today E83.52 - Hypercalcemia, I10 - Essential (primary) hypertension Total Protein Urine Random Today E83.52 - Hypercalcemia, I10 - Essential (primary) hypertension Creatinine Urine Today E83.52 - Hypercalcemia, I10 - Essential (primary) hypertension Magnesium Today E83.52 - Hypercalcemia, I10 - Essential (primary) hypertension Vitamin D 25-OH (D2 and D3) Today E83.52 - Hypercalcemia, I10 - Essential (primary) hypertension Comprehensive Met. Panel Today E83.52 - Hypercalcemia, I10 - Essential (anderson paulino) hypertension UA and rflx microscopic Today E83.52 - Hypercalcemia, I10 - Essential (primary) hypertension Parathyroid Hormone Intact Today E83.52 - Hypercalcemia, I10 - Essential (primary) hypertension Phosphorus Today E83.52 - Hypercalcemia, I10 - Essential (primary) hypertension Renin Today E83.52 - Hypercalcemia, I10 - Essential (primary) hypertension Coding Level of Care Code New Pt Level 4 (66825) Diagnoses Hypercalcemia E83.52 Hypertension I10
== END 2023-12-07 14:00 | disposition home or self-care (01) ==
PROVIDERS: PCP Registered Nurse; Referring Provider Registered Nurse; Visit Provider Internal Medicine Hypertension Specialist
DX: E83.52 Hypercalcemia (principal); I10 Essential (primary) hypertension
CPT/HCPCS: 99204

== ENCOUNTER → 2023-12-07 13:36 | Outpatient (BNVA) | payer OTHER, SELFPAY | PROVIDERS: PCP Registered Nurse; Referring Provider Registered Nurse; Visit Provider Internal Medicine Hypertension Specialist | DX: E83.52 Hypercalcemia (principal); I10 Essential (primary) hypertension | CPT/HCPCS: 99202 ==

== ENCOUNTER 2023-12-11 08:02 | Outpatient (REF) | payer OTHER, SELFPAY ==
[2023-12-11 08:26] LABS: MANUAL DIFF FLAG NO
[2023-12-11 08:55] LABS: Basophils Absolute Auto 0.1 X10*3/uL (0.0-0.2); Basophils Percent Auto 0.7 % (0-2); Eosinophils Absolute Auto 0.4 X10*3/uL (0.0-0.4); Eosinophils Percent Auto 5.2 % (0-4); Hematocrit 34.2 % (37.0-47.0); Hemoglobin 11.2 g/dl (12.0-16.0); Imm Gran Abs Auto 0.04 X10*3/uL (0.00-0.03); Imm Gran Pct Auto 0.6 % (0.0-0.4); Lymphocytes Absolute Auto 2.3 X10*3/uL (1.2-4.9); Lymphocytes Percent Auto 31.4 % (20-40); Mean Corpuscular HGB Conc 32.7 g/dl (31.0-35.0); Mean Corpuscular Hemoglobin 30.8 pg (27.0-33.0); Mean Platelet Volume 9.4 fL (9.4-12.3); Monocytes Absolute Auto 0.6 X10*3/uL (0.1-1.2); Neutrophils Absolute Auto 3.9 x10*3/uL (2.0-8.3); Neutrophils Percent Auto 54.1 % (45-73); Platelet Count 301 X10*3/uL (160-400); Red Blood Count 3.64 X10*6/uL (4.20-5.50); White Blood Count 7.2 X10*3/uL (4.8-10.8)
[2023-12-11 09:21] LABS: Parathyroid Hormone Intact 134.9 pg/mL (8.7-77.1)
[2023-12-11 09:29] LABS: Alanine Aminotransferase 34 U/L (0-31); Albumin Level 4.2 g/dL (3.5-5.0); Alkaline Phosphatase 89 U/L (39-117); Anion Gap 11 (12-20); Aspartate Amino Transferase 28 U/L (5-31); Bilirubin Total 0.4 mg/dL (0.0-1.0); Blood Urea Nitrogen 12 mg/dL (9-16); Calcium 9.8 mg/dL (8.4-10.2); Carbon Dioxide 32 mmol/L (22-29); Chloride 101 mmol/L (96-108); Estimated Glomerular Filt Rate 60; Glucose Random 138 mg/dL (60-115); Magnesium 2.1 mg/dL (1.6-2.6); Phosphorus 3.2 mg/dL (2.7-4.5); Potassium 3.7 mmol/L (3.3-5.1); Sodium 140 mmol/L (135-145); Total Protein 7.9 g/dL (6.5-8.0)
[2023-12-11 10:51] LABS: Appearance Urine Clear; Color Urine Yellow; Glucose Urine UA Negative (Negative); Leukocyte Esterase Urine Large (3+) (Negative); Nitrite Urine Negative (Negative); PH 7.5 (5.0-9.0); Specific Gravity - Urine 1.015 (1.005-1.025); UMIC TRIGGER UA YES; Urine Blood Negative (Negative); Urine Ketones Negative (Negative); Urine Protein Negative (Neg-Trace)
[2023-12-11 10:59] LABS: Bacteria Urine 3+ (None Seen); Hyaline Casts Urine 0-2 /LPF (0-2); RBC Urine 0-2 /HPF (0-2); Squamous Epithelial Cell Urine 0-2 /HPF (0-2); WBC Urine >50 /HPF (0-5)
[2023-12-11 11:07] LABS: Creatinine Urine 179.26 mg/dL; Total Protein Urine Random 11 mg/dL (<12)
[2023-12-11 12:01] LABS: Creatinine, mg/dL 87.79
[2023-12-11 12:32] LABS: Creatinine, 24Hr Urine 0.4 G/Day (1.0-2.0); Total Volume 24 Hour Urine 500 mL
[2023-12-12 15:54] LABS: Calcium, 24 Hr Urine 19 mg/24 h; Calcium/Creatinine Ratio 43 mg/g creat (30-275); Creatinine 24Hr Urine 0.45 g/24 h (0.50-2.15)
[2023-12-16 16:13] LABS: Vitamin D 25-OH, D2 <4 ng/mL; Vitamin D 25-OH, D3 30 ng/mL; Vitamin D 25-OH, Total 30 ng/mL (30-100)
[2023-12-20 15:47] LABS: Renin 0.23 ng/mL/h (0.25-5.82)
== END 2023-12-11 08:03 | disposition home or self-care (01) ==
LOC: HO.LAB 08:02
PROVIDERS: Absent Provider Internal Medicine Hypertension Specialist; PCP Registered Nurse; Visit Provider Internal Medicine Endocrinology, Diabetes & Metabolism
DX: I10 Essential (primary) hypertension (principal); E83.52 Hypercalcemia
CPT/HCPCS: 36415; 80053; 81001; 82088; 82306; 82340; 82570; 83735; 83970; 84100; 84156; 84244; 85025

== ENCOUNTER → 2023-12-13 09:01 | Outpatient (BNVA) | payer OTHER, SELFPAY | PROVIDERS: PCP Registered Nurse; Visit Provider Internal Medicine Hypertension Specialist ==

== ENCOUNTER → 2023-12-14 08:55 | Outpatient (BNVA) | payer OTHER, SELFPAY | PROVIDERS: PCP Registered Nurse; Visit Provider Internal Medicine Hypertension Specialist ==

== ENCOUNTER 2023-12-19 14:50 | Outpatient (AMB) | payer OTHER, SELFPAY ==
--- NOTE | 2023-12-19 15:21 | MHC.OFFVIS ---
Vital Signs 12/19/23 15:22 Height 5 ft 3 in Weight 123 lb 10.869 oz BMI 21.9 BP 170/70 H Blood Pressure Location Lt brachial Position Sitting Pulse 72 Pulse Source Pulse Oximeter Intake Visit Reasons: f/u osteoporosis /increased PTH on chlorthaladone Intake Note: Patient present today for Osteoporosis/increase PTH on chlorthaladone follow up visit. Zipper Machine Operator Required: Yes Zipper Machine Operator Language: Global Sales Executive Services: Zipper Machine Operator Present Zipper Machine Operator Name: Mary Information Interpreted: non-clinical & clinical Accompanied by: Daughter Allergies atorvastatin [Lipitor] Allergy (Unknown, Verified 12/19/23 15:26) Unknown Medication List - Last Reconciled 12/19/23 by Rui Manley MD amlodipine 5 mg PO DAILY aspirin 325 mg PO DAILY brimonidine 0.2% 1 drp ophthalmic (eye) Q12H calcium carbonate 600 mg PO DAILY 30 days chlorthalidone 25 mg PO DAILY clopidogrel 75 mg PO DAILY olmesartan 40 mg PO DAILY rosuvastatin 20 mg PO BEDTIME HPI Comments Details: 68-year-old female today for follow-up , for osteoporosis and multinodular goiter. She had fine-needle aspiration of left lower pole nodule on 08/13/2020, cytology was consistent with benign follicular nodule [place] category 2. She was initially seen this practice of 09/27/[address] Lobo. Was started the patient on Fosamax 70 mg weekly.Stopped alendronate 4 wks ago After reviewing Dr. Lobo is initial consultation note she had intact PTH is 54 PG/mL. Serum calcium levels range from 9.7-10.3 mg/dL. She denies prior fractures, no history of GERD, She has positive FH of osteoporosis in her sister, she denies nephrolithiasis, she denies steroids used, never smoker smoker, she denies PPIs, she denies antidepressive and anti seizures medications, Denies negative History of head or neck irradiation. Bisphosphonates use: 09/27/2016 Calcium intake: 600 mg +200 units of vitamin-D once a day Herbal medications. none. 12/23/2019 Dexa scan AP SPINE L1-L4: Current: BMD 0.921 g/cm2, Z-score -0.3, T-score -2.2, osteopenia, 5.6% increase from previous, 0.1% increase from baseline (<5% change is not significant). Prior: BMD 0.872 g/cm2. Baseline: BMD 0.920 g/cm2. LEFT FEMUR, NECK: Current: BMD 0.734 g/cm2, Z-score -0.5, T-score -2.2, osteopenia. Prior: BMD 0.751 g/cm2. Baseline: BMD 0.752 g/cm2. LEFT FEMUR, TOTAL: Current: BMD 0.862 g/cm2, Z-score 0.3, T-score -1.2, osteopenia, 0.9% decrease from previous, 0.1% decrease from baseline (<5% change is not significant). Prior: BMD 0.870 g/cm2. Baseline: BMD 0.863 g/cm2. LEFT FOREARM RADIUS 33%: BMD 0.820 g/cm2, Z-score 0.9, T-score -0.6, normal. Prior: Not previously measured. 10/23/2019 US thyroid Right Thyroid Lobe: 4.1 x 1.0 x 1.4 cm, volume 3.0 mL. Parenchyma: The gland echotexture is homogeneous. Thyroid vascularity is normal. Left Thyroid Lobe: 4.3 x 1.4 x 1.5 cm, volume 4.7 mL. Parenchyma: The gland echotexture is homogeneous. Thyroid vascularity is normal. Isthmus: 0.3 cm in maximum AP dimension. RIGHT THYROID LOBE: The largest 4 nodules are measured. 1. Location: Superior. Size: 0.3 x 0.5 x 0.5 cm. Nodule characteristics: Hypoechoic with smooth margins and no Doppler detectable vascular flow. 2. Location: Superior. Size: 0.4 x 0.2 x 0.3 cm. Nodule characteristics: Complex with cystic and solid components, smooth margins, and no Doppler detectable vascular flow. 3. Location: Middle. Size: 0.3 x 0.3 x 0.2 cm. Nodule characteristics: Simple cyst with smooth margins and no Doppler detectable vascular flow. 4. Location: Inferior. Size: 0.5 x 0.3 x 0.4 cm. Nodule characteristics: Simple cyst with smooth margins and no Doppler detectable vascular flow. ISTHMUS: No nodules. LEFT THYROID LOBE: The largest 4 nodules are measured. 1. Location: Superior. Size: 0.7 x 0.5 x 0.6 cm. Nodule characteristics: Hypoechoic with smooth margins and no Doppler detectable vascular flow. 2. Location: Middle. Size: 0.2 x 0.2 x 0.2 cm. Nodule characteristics: Simple cyst with smooth margins and no Doppler detectable vascular flow. 3. Location: Middle. Size: 0.2 x 0.1 x 0.2 cm. Nodule characteristics: Simple cyst with smooth margins and no Doppler detectable vascular flow. 4. Location: Inferior. Size: 1.8 x 1.1 x 1.3 cm. Nodule characteristics: Complex cystic with smooth margins and no Doppler detectable vascular flow. 04/08/2019 Hemoglobin 12.5 grams/deciliter Hematocrit 35.7% Creatinine 0.89 mg/dL GFR more than 60 mL/minute Calcium 10.7 mg/dL Albumin 4.9 g per dL Alkaline phosphatase 86 units/liter 10/11/2016 NTX 15 05/03/2018 vitamin-D 48 ng per dL Trended calcium from 2015 to 2018 range 10.1-10.7 mg/dL. Prior to that all her calcium were in the upper limit of normal. 01/08/2016 PTH 54 pg/mL, Calcium 10.2 mg/dL, albumin 4.6 grams/deciliter 07/05/2017 PTH 42 pg/mL, Calcium 10.2 mg/dL, albumin 4.5 grams/deciliter 05/03/2018 PTH 51 pg/mL Calcium 10.4 mg per dL, albumin 4.4 grams/deciliter. Laboratory Tests 03/04/20 03/04/20 04/10/20 08:10 08:10 08:00 Creatinine Estimated GFR Calcium Alkaline Phosphatase Albumin 1,25 Dihydroxy Vit D 54 1,25 Dihydroxy Vit D2 <8 25-OH Vitamin D Total TSH 2.49 Free T4 1.24 PTH Intact Calcium (PTH Intact) Ur 24 Hour Volume Ur Creatinine mg/dL Ur Calcium 24 Hr 69 Calcium/Creat 24 Hr 161 04/10/20 04/15/20 04/15/20 08:00 13:55 13:55 Creatinine Estimated GFR Calcium 10.4 H Alkaline Phosphatase Albumin 1,25 Dihydroxy Vit D 1,25 Dihydroxy Vit D2 25-OH Vitamin D Total TSH Free T4 PTH Intact 47 Calcium (PTH Intact) 10.7 H Ur 24 Hour Volume 500 Ur Creatinine mg/dL 85.07 Ur Calcium 24 Hr Calcium/Creat 24 Hr 05/18/20 09/09/20 08:45 08:00 Creatinine 0.83 Estimated GFR > 60 Calcium 10.1 10.3 H Alkaline Phosphatase 99 Albumin 4.6 1,25 Dihydroxy Vit D 1,25 Dihydroxy Vit D2 25-OH Vitamin D Total 37.4 TSH Free T4 PTH Intact Calcium (PTH Intact) Ur 24 Hour Volume Ur Creatinine mg/dL Ur Calcium 24 Hr Calcium/Creat 24 Hr Laboratory Tests 10/10/19 10/10/19 03/04/20 12:50 13:05 08:10 TSH 2.49 Free T4 1.24 PTH Intact Calcium (PTH Intact) Ur 24 Hour Volume Urine Creatinine 53 Ur Calcium 24 Hr Calcium/Creat 24 Hr Bone Specific Alk Phos 10.1 03/04/20 04/10/20 04/10/20 08:10 08:00 08:00 TSH Free T4 PTH Intact 54 Calcium (PTH Intact) 9.7 Ur 24 Hour Volume 500 Urine Creatinine Ur Calcium 24 Hr 69 Calcium/Creat 24 Hr 161 Bone Specific Alk Phos repeat labs off hydrochlorothiazide and alendronate show elevation in PTH and calcium consistent with primary hyperparathyroidism PFSH Medical History Vitamin D deficiency Hypertension Hypercalcemia Non-toxic multinodular goiter Osteoporosis Surgical History Hx of total hysterectomy Family History Father Unknown family medical history Mother Hypercholesteremia Sister Osteoporosis Social History Household Members: Spouse Alcohol intake: current Alcohol intake frequency: does not drink Patient Tobacco Use Status: Former Tobacco user Physical Exam Vital Signs: Last Vital Signs Pulse 72 12/19/23 15:22 BP 170/70 H 12/19/23 15:22 BMI result Body Mass Index 21.9 Assessment & Plan Assessment & Plan (1) Osteoporosis: Code(s): M81.0 - Age-related osteoporosis without current pathological fracture Category: Medical Plan: This 68-year-old female with history of low bone mass currently being treated with alendronate . She was found to have mildly elevated PTH and calcium off alendronate but on chlorthalidone The plan is to talk to the patient to talk to the PCP about holding chlothaladone for 6 wks and recheck calcium and albumin and PTH about 2 months after . Have hold calcium supplementation for now. If there is no evidence for primary hyperparathyroidism , then could be a candidate for parathyroid exploration (2) Non-toxic multinodular goiter: Code(s): E04.2 - Nontoxic multinodular goiter Category: Medical Plan: Status post FNA of a left lower pole nodule with benign cytology. Ultrasounds have been stable. Perhaps, a repeat thyroid ultrasound can be obtained in 1-2 years time by the patient's primary care provider and followed every 2-3 years time assuming stability of the nodules. If there is any change in the size of the nodules, the patient returned back to endocrinology (3) Hypercalcemia: Code(s): E83.52 - Hypercalcemia Category: Medical Plan: Will recheck calcium along with PTH and 25 - vitamin-D as above Orders: Orders Parathyroid Hormone Intact 3 Months E83.52 - Hypercalcemia Albumin Level Today E83.52 - Hypercalcemia Vitamin D 25-OH Total 3 Months E83.52 - Hypercalcemia Coding Level of Care Code Est Pt Level 3 (58779) Diagnoses Osteoporosis M81.0 Non-toxic multinodular goiter E04.2 Hypercalcemia E83.52
[2023-12-19 15:22] VITALS: BP 170/70; PULSE 72; BMI 21.9
== END 2023-12-19 15:46 | disposition home or self-care (01) ==
PROVIDERS: PCP Registered Nurse; Visit Provider Internal Medicine Endocrinology, Diabetes & Metabolism
DX: M81.0 Age-related osteoporosis without current pathological fracture (principal); E04.2 Nontoxic multinodular goiter; E83.52 Hypercalcemia
CPT/HCPCS: 99213

== ENCOUNTER → 2023-12-19 14:50 | Outpatient (BNVA) | payer OTHER, SELFPAY | PROVIDERS: PCP Registered Nurse; Visit Provider Internal Medicine Endocrinology, Diabetes & Metabolism | DX: M81.0 Age-related osteoporosis without current pathological fracture (principal); E04.2 Nontoxic multinodular goiter; E83.52 Hypercalcemia; Z90.710 Acquired absence of both cervix and uterus | CPT/HCPCS: 99212 ==

== ENCOUNTER 2024-02-01 15:15 | Outpatient (AMB) | payer OTHER, SELFPAY ==
[2024-02-01 15:17] VITALS: BP 188/70; PULSE 92; O2SAT 99; BMI 22.1
--- NOTE | 2024-02-01 15:17 | HO.NEPHOV_ITS ---
Vital Signs 02/01/24 15:17 02/01/24 15:40 Height 5 ft 3 in Weight 125 lb BMI 22.1 BP 188/70 H 155/70 H Blood Pressure Location Rt brachial Rt brachial Position Sitting Sitting Pulse 92 Pulse Source Pulse Oximeter Pulse Oximetry (%) 99 Oxygen Delivery Method Room Air Intake Visit Reasons: Hypercalcemia/ Conf News Wire Photo Operator Required: Yes News Wire Photo Operator Name: [email or web address] [id number] Accompanied by: Self / Same As Patient Allergies atorvastatin [Lipitor] Allergy (Unknown, Verified 02/01/24 15:19) Unknown Medication List - Last Reconciled 02/01/24 by Bernardo Dave MD amlodipine 5 mg PO DAILY aspirin 81 mg PO DAILY brimonidine 0.2% 1 drp ophthalmic (eye) Q12H calcium carbonate 600 mg PO DAILY 30 days cholecalciferol (vitamin D3) 50 mcg PO DAILY olmesartan 40 mg PO DAILY rosuvastatin 20 mg PO BEDTIME ticagrelor (Brilinta) 90 mg PO BID HPI Comments Details: 68-year-old woman with a history of hypertension and hyperlipidemia who has a history of cerebral aneurysm has been referred for evaluation of hypertension. She has had labile hypertension and has had significant fluctuating blood pressure readings. She is currently on amlodipine chlorthalidone and olmesartan. Based on the history it appears that there could be an issue with the compliance She was accompanied by a family member was able to translate. History of hypercalcemia due to primary hyperparathyroidism. She has been followed by endocrinology. She underwent 24 hour ABP [facility] Medical History Vitamin D deficiency Hypertension Hypercalcemia Non-toxic multinodular goiter Osteoporosis Surgical History Hx of total hysterectomy Family History Father Unknown family medical history Mother Hypercholesteremia Sister Osteoporosis Social History Household Members: Spouse Alcohol intake: current Alcohol intake frequency: does not drink Patient Tobacco Use Status: Former Tobacco user Physical Exam Vital Signs: Last Vital Signs Pulse 92 02/01/24 15:17 BP 155/70 H 02/01/24 15:40 Pulse Ox 99 02/01/24 15:17 Oxygen Delivery Method Room Air 02/01/24 15:17 BMI result Body Mass Index 22.1 Const General: comfortable; No acute distress Orientation/consciousness: patient oriented x3 Eyes General: appearance normal, both eyes and all related structures Visual Roth: normal visual roth by confrontation Neck Neck: Yes supple and Yes no JVD Resp Effort & Inspection: normal respiratory effort and respiratory effort not decreased Auscultation: rhonchi Cardio Palpation: no palpable S3 and no palpable S4 Heart sounds: no rubs GI Inspection: Yes normal to inspection Palpation (GI): Soft to palpation Percussion: Yes normal to percussion Auscultation: normal bowel sounds General: Yes no CVA tenderness Back/Spine/Pelvis Back: no CVA tenderness Skin General skin exam: no petechiae and no purpura Neuro General: patient oriented x3 and no focal motor deficits Extrem General: No clubbing and No edema Results Reviewed Nephrology Results: Hgb 11.2 g/dl (12.0-16.0) L 12/11/23 WBC 7.2 X10*3/uL (4.8-10.8) 12/11/23 Plt Count 301 X10*3/uL (160-400) 12/11/23 Sodium 140 mmol/L (135-145) 12/11/23 Potassium 3.7 mmol/L (3.3-5.1) 12/11/23 Chloride 101 mmol/L (96-108) 12/11/23 Carbon Dioxide 32 mmol/L (22-29) H 12/11/23 BUN 12 mg/dL (9-16) 12/11/23 Creatinine 0.93 mg/dL (0.5-1.4) 12/11/23 Calcium 9.8 mg/dL (8.4-10.2) 12/11/23 Phosphorus 3.2 mg/dL (2.7-4.5) 12/11/23 PTH Intact 134.9 pg/mL (8.7-77.1) H 12/11/23 Urine Protein Negative mg/dL (Neg-Trace) 12/11/23 Urine Creatinine 179.26 mg/dL 12/11/23 Assessment & Plan Assessment & Plan (1) Hypercalcemia: Code(s): E83.52 - Hypercalcemia Category: Medical (2) Hypertension: Code(s): I10 - Essential (primary) hypertension Category: Medical Plan 68-year-old man with history of labile hypertension cerebral aneurysm. History of hypercalcemia due to primary hyperparathyroidism. 24 hour ABP M reveals well-controlled hypertension. No nocturnal dipping. She has superimposed white coat effect. Encouraged her to stay on low-sodium diet. She had mild hypokalemia and alkalosis. Although this could be due to the use of diuretics Based on serum aldosterone and plasma renin activity, primary hyperaldosteronism seems unlikely. For now I encouraged her to stay on the current antihypertensive medication. She needs to monitor blood pressure at home and based on home blood pressure readings medications were adjusted. Today have not been any changes to medications based on the ABP M readings. Renal function is normal at this time. Serum calcium has normalized. . Orders: Orders Basic Metabolic Panel 6 Months E83.52 - Hypercalcemia Scribe Plan - Not visible on output: wce Coding Level of Care Code Est Pt Level 4 (13860) Diagnoses Hypercalcemia E83.52 Hypertension I10
[2024-02-01 15:40] VITALS: BP 155/70
== END 2024-02-01 15:42 | disposition home or self-care (01) ==
PROVIDERS: PCP Registered Nurse; Visit Provider Internal Medicine Hypertension Specialist
DX: E83.52 Hypercalcemia (principal); I10 Essential (primary) hypertension
CPT/HCPCS: 93790; 99214

== ENCOUNTER → 2024-02-01 15:15 | Outpatient (BNVA) | payer OTHER, SELFPAY | PROVIDERS: PCP Registered Nurse; Visit Provider Internal Medicine Hypertension Specialist | DX: E83.52 Hypercalcemia (principal); I10 Essential (primary) hypertension | CPT/HCPCS: 99212 ==

== ENCOUNTER 2024-03-19 14:20 | Outpatient (AMB) | payer OTHER, SELFPAY ==
--- NOTE | 2024-03-19 14:34 | A.OFFVIS_ITS ---
Vital Signs 03/19/24 14:37 Height 5 ft 3 in Weight 121 lb 14.65 oz BMI 21.6 BP 182/84 H Blood Pressure Location Rt brachial Position Sitting Pulse 98 Pulse Source Pulse Oximeter Intake Visit Reasons: f/u osteoporosis/ elevated PTH on chlorthalidone Intake Note: Patient present today for Osteoporosis/increase PTH on chlorthaladone follow up visit. Turret Lathe Set Up Operator Required: Yes Turret Lathe Set Up Operator Language: [place] [employer] Services: Turret Lathe Set Up Operator Present Turret Lathe Set Up Operator Name: Marley CMI Information Interpreted: non-clinical & clinical Accompanied by: Self / Same As Patient Allergies atorvastatin [Lipitor] Allergy (Unknown, Verified 03/19/24 14:37) Unknown HPI Comments Details: 69-year-old female today for follow-up , for osteoporosis and multinodular goiter. She had fine-needle aspiration of left lower pole nodule on 08/13/2020, cytology was consistent with benign follicular nodule [place] category 2. She was initially seen this practice of 09/27/[address] Lobo. Was started the patient on Fosamax 70 mg weekly.Stopped alendronate 4 wks ago After reviewing Dr. Lobo is initial consultation note she had intact PTH is 54 PG/mL. Serum calcium levels range from 9.7-10.3 mg/dL. She denies prior fractures, no history of GERD, She has positive FH of osteoporosis in her sister, she denies nephrolithiasis, she denies steroids used, never smoker smoker, she denies PPIs, she denies antidepressive and anti seizures medications, Denies negative History of head or neck irradiation. Bisphosphonates use: 09/27/2016 Calcium intake: 600 mg +200 units of vitamin-D once a day Herbal medications. none. 12/23/2019 Dexa scan AP SPINE L1-L4: Current: BMD 0.921 g/cm2, Z-score -0.3, T-score -2.2, osteopenia, 5.6% increase from previous, 0.1% increase from baseline (<5% change is not significant). Prior: BMD 0.872 g/cm2. Baseline: BMD 0.920 g/cm2. LEFT FEMUR, NECK: Current: BMD 0.734 g/cm2, Z-score -0.5, T-score -2.2, osteopenia. Prior: BMD 0.751 g/cm2. Baseline: BMD 0.752 g/cm2. LEFT FEMUR, TOTAL: Current: BMD 0.862 g/cm2, Z-score 0.3, T-score -1.2, osteopenia, 0.9% decrease from previous, 0.1% decrease from baseline (<5% change is not significant). Prior: BMD 0.870 g/cm2. Baseline: BMD 0.863 g/cm2. LEFT FOREARM RADIUS 33%: BMD 0.820 g/cm2, Z-score 0.9, T-score -0.6, normal. Prior: Not previously measured. 10/23/2019 US thyroid Right Thyroid Lobe: 4.1 x 1.0 x 1.4 cm, volume 3.0 mL. Parenchyma: The gland echotexture is homogeneous. Thyroid vascularity is normal. Left Thyroid Lobe: 4.3 x 1.4 x 1.5 cm, volume 4.7 mL. Parenchyma: The gland echotexture is homogeneous. Thyroid vascularity is normal. Isthmus: 0.3 cm in maximum AP dimension. RIGHT THYROID LOBE: The largest 4 nodules are measured. 1. Location: Superior. Size: 0.3 x 0.5 x 0.5 cm. Nodule characteristics: Hypoechoic with smooth margins and no Doppler detectable vascular flow. 2. Location: Superior. Size: 0.4 x 0.2 x 0.3 cm. Nodule characteristics: Complex with cystic and solid components, smooth margins, and no Doppler detectable vascular flow. 3. Location: Middle. Size: 0.3 x 0.3 x 0.2 cm. Nodule characteristics: Simple cyst with smooth margins and no Doppler detectable vascular flow. 4. Location: Inferior. Size: 0.5 x 0.3 x 0.4 cm. Nodule characteristics: Simple cyst with smooth margins and no Doppler detectable vascular flow. ISTHMUS: No nodules. LEFT THYROID LOBE: The largest 4 nodules are measured. 1. Location: Superior. Size: 0.7 x 0.5 x 0.6 cm. Nodule characteristics: Hypoechoic with smooth margins and no Doppler detectable vascular flow. 2. Location: Middle. Size: 0.2 x 0.2 x 0.2 cm. Nodule characteristics: Simple cyst with smooth margins and no Doppler detectable vascular flow. 3. Location: Middle. Size: 0.2 x 0.1 x 0.2 cm. Nodule characteristics: Simple cyst with smooth margins and no Doppler detectable vascular flow. 4. Location: Inferior. Size: 1.8 x 1.1 x 1.3 cm. Nodule characteristics: Complex cystic with smooth margins and no Doppler detectable vascular flow. 04/08/2019 Hemoglobin 12.5 grams/deciliter Hematocrit 35.7% Creatinine 0.89 mg/dL GFR more than 60 mL/minute Calcium 10.7 mg/dL Albumin 4.9 g per dL Alkaline phosphatase 86 units/liter 10/11/2016 NTX 15 05/03/2018 vitamin-D 48 ng per dL Trended calcium from 2015 to 2018 range 10.1-10.7 mg/dL. Prior to that all her calcium were in the upper limit of normal. 01/08/2016 PTH 54 pg/mL, Calcium 10.2 mg/dL, albumin 4.6 grams/deciliter 07/05/2017 PTH 42 pg/mL, Calcium 10.2 mg/dL, albumin 4.5 grams/deciliter 05/03/2018 PTH 51 pg/mL Calcium 10.4 mg per dL, albumin 4.4 grams/deciliter. Laboratory Tests 03/04/20 03/04/20 04/10/20 08:10 08:10 08:00 Creatinine Estimated GFR Calcium Alkaline Phosphatase Albumin 1,25 Dihydroxy Vit D 54 1,25 Dihydroxy Vit D2 <8 25-OH Vitamin D Total TSH 2.49 Free T4 1.24 PTH Intact Calcium (PTH Intact) Ur 24 Hour Volume Ur Creatinine mg/dL Ur Calcium 24 Hr 69 Calcium/Creat 24 Hr 161 04/10/20 04/15/20 04/15/20 08:00 13:55 13:55 Creatinine Estimated GFR Calcium 10.4 H Alkaline Phosphatase Albumin 1,25 Dihydroxy Vit D 1,25 Dihydroxy Vit D2 25-OH Vitamin D Total TSH Free T4 PTH Intact 47 Calcium (PTH Intact) 10.7 H Ur 24 Hour Volume 500 Ur Creatinine mg/dL 85.07 Ur Calcium 24 Hr Calcium/Creat 24 Hr 05/18/20 09/09/20 08:45 08:00 Creatinine 0.83 Estimated GFR > 60 Calcium 10.1 10.3 H Alkaline Phosphatase 99 Albumin 4.6 1,25 Dihydroxy Vit D 1,25 Dihydroxy Vit D2 25-OH Vitamin D Total 37.4 TSH Free T4 PTH Intact Calcium (PTH Intact) Ur 24 Hour Volume Ur Creatinine mg/dL Ur Calcium 24 Hr Calcium/Creat 24 Hr Laboratory Tests 10/10/19 10/10/19 03/04/20 12:50 13:05 08:10 TSH 2.49 Free T4 1.24 PTH Intact Calcium (PTH Intact) Ur 24 Hour Volume Urine Creatinine 53 Ur Calcium 24 Hr Calcium/Creat 24 Hr Bone Specific Alk Phos 10.1 03/04/20 04/10/20 04/10/20 08:10 08:00 08:00 TSH Free T4 PTH Intact 54 Calcium (PTH Intact) 9.7 Ur 24 Hour Volume 500 Urine Creatinine Ur Calcium 24 Hr 69 Calcium/Creat 24 Hr 161 Bone Specific Alk Phos repeat labs off hydrochlorothiazide and alendronate show elevation in PTH but not calcium consistent with? secondary hyperparathyroidism PFSH Medical History Vitamin D deficiency Hypertension Hypercalcemia Non-toxic multinodular goiter Osteoporosis Surgical History Hx of total hysterectomy Family History Father Unknown family medical history Mother Hypercholesteremia Sister Osteoporosis Social History Household Members: Spouse Alcohol intake: current Alcohol intake frequency: does not drink Patient Tobacco Use Status: Former Tobacco user Physical Exam Vital Signs: Last Vital Signs Pulse 98 03/19/24 14:37 BP 182/84 H 03/19/24 14:37 BMI result Body Mass Index 21.6 Assessment & Plan Assessment & Plan (1) Osteoporosis: Code(s): M81.0 - Age-related osteoporosis without current pathological fracture Category: Medical Plan: This 69-year-old female with history of low bone mass currently being treated with alendronate . She was found to have mildly elevated PTH and calcium off alendronate but on chlorthalidone The plan is to talk to pt to recheck calcium, alb, PTH, 25-D and 24 hr urine for calcium and creatinine at [facility] ([facility]) . Will also repeat 3 site DEXA of HIP, spine and distal forearm (2) Non-toxic multinodular goiter: Code(s): E04.2 - Nontoxic multinodular goiter Category: Medical Plan: No need for any endocrine follow-up at this point (3) Hypercalcemia: Code(s): E83.52 - Hypercalcemia Category: Medical Plan: worup as above for hyperparathyroidism (4) Hyperparathyroidism: Code(s): E21.3 - Hyperparathyroidism, unspecified Category: Medical Plan: As above Orders: Orders XR DEXA appendicular skeleton Today E21.3 - Hyperparathyroidism, unspecified Coding Level of Care Code Est Pt Level 3 (27570) Diagnoses Osteoporosis M81.0 Non-toxic multinodular goiter E04.2 Hypercalcemia E83.52 Hyperparathyroidism E21.3
[2024-03-19 14:37] VITALS: BP 182/84; PULSE 98; BMI 21.6
== END 2024-03-19 15:07 | disposition home or self-care (01) ==
PROVIDERS: PCP Registered Nurse; Visit Provider Internal Medicine Endocrinology, Diabetes & Metabolism
DX: E21.3 Hyperparathyroidism, unspecified (principal); E04.2 Nontoxic multinodular goiter; M81.0 Age-related osteoporosis without current pathological fracture
CPT/HCPCS: 99213

== ENCOUNTER → 2024-03-19 14:20 | Outpatient (BNVA) | payer OTHER, SELFPAY | PROVIDERS: PCP Registered Nurse; Visit Provider Internal Medicine Endocrinology, Diabetes & Metabolism | DX: M81.0 Age-related osteoporosis without current pathological fracture (principal); E04.2 Nontoxic multinodular goiter; E83.52 Hypercalcemia; E21.3 Hyperparathyroidism, unspecified | CPT/HCPCS: 99212 ==

== ENCOUNTER 2024-05-13 06:01 | Outpatient (REF) | payer OTHER, SELFPAY ==
[2024-05-13 09:16] LABS: Albumin Level 4.5 g/dL (3.5-5.0); Calcium 10.3 mg/dL (8.4-10.2); Estimated Glomerular Filt Rate > 60
[2024-05-13 09:30] LABS: Parathyroid Hormone Intact 122.6 pg/mL (8.7-77.1)
[2024-05-13 09:37] LABS: Vitamin D 25-OH Total 48.8 ng/mL (>30)
== END 2024-05-13 06:02 | disposition home or self-care (01) ==
LOC: HO.LAB 06:01
PROVIDERS: PCP Registered Nurse; Visit Provider Internal Medicine Endocrinology, Diabetes & Metabolism
DX: E83.52 Hypercalcemia (principal)
CPT/HCPCS: 36415; 82040; 82306; 82310; 82565; 83970

== ENCOUNTER 2024-05-14 15:19 | Outpatient (REF) | payer OTHER, SELFPAY ==
[2024-05-14 16:28] LABS: Creatinine, mg/dL 102.29
[2024-05-14 17:57] LABS: Creatinine, 24Hr Urine 0.7 G/Day (1.0-2.0); Total Volume 24 Hour Urine 725 mL
[2024-05-15 16:19] LABS: Calcium, 24 Hr Urine 84 mg/24 h; Calcium/Creatinine Ratio 94 mg/g creat (30-275); Creatinine 24Hr Urine 0.89 g/24 h (0.50-2.15)
== END 2024-05-14 15:20 | disposition home or self-care (01) ==
LOC: HO.LNP 15:19
PROVIDERS: Visit Provider Internal Medicine Endocrinology, Diabetes & Metabolism
DX: E55.9 Vitamin D deficiency, unspecified (principal)
CPT/HCPCS: 82340; 82570

== ENCOUNTER 2024-06-19 10:32 | Outpatient (AMB) | payer OTHER, SELFPAY ==
--- NOTE | 2024-06-19 10:39 | MHC.OFFVIS ---
Vital Signs 06/19/24 10:50 Height 5 ft 3.58 in Weight 125 lb 3.561 oz BMI 21.8 BP 172/62 H Blood Pressure Location Rt brachial Position Sitting Pulse 76 Pulse Source Pulse Oximeter Pulse Oximetry (%) 98 Oxygen Delivery Method Room Air Intake Visit Reasons: f/u hyperparthyroidism Intake Note: Patient present today for Hyperparathyroidism and Osteoporosis follow upxxxxxxp. Aviation Safety Equipment Technician Required: Yes Aviation Safety Equipment Technician Services: Aviation Safety Equipment Technician Offered & Declined Aviation Safety Equipment Technician Name: tanya perez will interpret Information Interpreted: non-clinical & clinical Accompanied by: Daughter Allergies atorvastatin [Lipitor] Allergy (Unknown, Verified 06/19/24 10:46) Unknown cholecalciferol (vitamin D3) [From Vitamin D3] Allergy (Verified 06/19/24 10:46) itchy HPI Comments Details: 69-year-old female today for follow-up , for osteoporosis and multinodular goiter. She had fine-needle aspiration of left lower pole nodule on 08/13/2020, cytology was consistent with benign follicular nodule [place] category 2. She was initially seen this practice of 09/27/[address] Lobo. Was started the patient on Fosamax 70 mg weekly.Stopped alendronate 4 wks ago After reviewing Dr. Lobo is initial consultation note she had intact PTH is 54 PG/mL. Serum calcium levels range from 9.7-10.3 mg/dL. She denies prior fractures, no history of GERD, She has positive FH of osteoporosis in her sister, she denies nephrolithiasis, she denies steroids used, never smoker smoker, she denies PPIs, she denies antidepressive and anti seizures medications, Denies negative History of head or neck irradiation. Bisphosphonates use: 09/27/2016 Calcium intake: 600 mg +200 units of vitamin-D once a day Herbal medications. none. 12/23/2019 Dexa scan AP SPINE L1-L4: Current: BMD 0.921 g/cm2, Z-score -0.3, T-score -2.2, osteopenia, 5.6% increase from previous, 0.1% increase from baseline (<5% change is not significant). Prior: BMD 0.872 g/cm2. Baseline: BMD 0.920 g/cm2. LEFT FEMUR, NECK: Current: BMD 0.734 g/cm2, Z-score -0.5, T-score -2.2, osteopenia. Prior: BMD 0.751 g/cm2. Baseline: BMD 0.752 g/cm2. LEFT FEMUR, TOTAL: Current: BMD 0.862 g/cm2, Z-score 0.3, T-score -1.2, osteopenia, 0.9% decrease from previous, 0.1% decrease from baseline (<5% change is not significant). Prior: BMD 0.870 g/cm2. Baseline: BMD 0.863 g/cm2. LEFT FOREARM RADIUS 33%: BMD 0.820 g/cm2, Z-score 0.9, T-score -0.6, normal. Prior: Not previously measured. 10/23/2019 US thyroid Right Thyroid Lobe: 4.1 x 1.0 x 1.4 cm, volume 3.0 mL. Parenchyma: The gland echotexture is homogeneous. Thyroid vascularity is normal. Left Thyroid Lobe: 4.3 x 1.4 x 1.5 cm, volume 4.7 mL. Parenchyma: The gland echotexture is homogeneous. Thyroid vascularity is normal. Isthmus: 0.3 cm in maximum AP dimension. RIGHT THYROID LOBE: The largest 4 nodules are measured. 1. Location: Superior. Size: 0.3 x 0.5 x 0.5 cm. Nodule characteristics: Hypoechoic with smooth margins and no Doppler detectable vascular flow. 2. Location: Superior. Size: 0.4 x 0.2 x 0.3 cm. Nodule characteristics: Complex with cystic and solid components, smooth margins, and no Doppler detectable vascular flow. 3. Location: Middle. Size: 0.3 x 0.3 x 0.2 cm. Nodule characteristics: Simple cyst with smooth margins and no Doppler detectable vascular flow. 4. Location: Inferior. Size: 0.5 x 0.3 x 0.4 cm. Nodule characteristics: Simple cyst with smooth margins and no Doppler detectable vascular flow. ISTHMUS: No nodules. LEFT THYROID LOBE: The largest 4 nodules are measured. 1. Location: Superior. Size: 0.7 x 0.5 x 0.6 cm. Nodule characteristics: Hypoechoic with smooth margins and no Doppler detectable vascular flow. 2. Location: Middle. Size: 0.2 x 0.2 x 0.2 cm. Nodule characteristics: Simple cyst with smooth margins and no Doppler detectable vascular flow. 3. Location: Middle. Size: 0.2 x 0.1 x 0.2 cm. Nodule characteristics: Simple cyst with smooth margins and no Doppler detectable vascular flow. 4. Location: Inferior. Size: 1.8 x 1.1 x 1.3 cm. Nodule characteristics: Complex cystic with smooth margins and no Doppler detectable vascular flow. 04/08/2019 Hemoglobin 12.5 grams/deciliter Hematocrit 35.7% Creatinine 0.89 mg/dL GFR more than 60 mL/minute Calcium 10.7 mg/dL Albumin 4.9 g per dL Alkaline phosphatase 86 units/liter 10/11/2016 NTX 15 05/03/2018 vitamin-D 48 ng per dL Trended calcium from 2015 to 2018 range 10.1-10.7 mg/dL. Prior to that all her calcium were in the upper limit of normal. 01/08/2016 PTH 54 pg/mL, Calcium 10.2 mg/dL, albumin 4.6 grams/deciliter 07/05/2017 PTH 42 pg/mL, Calcium 10.2 mg/dL, albumin 4.5 grams/deciliter 05/03/2018 PTH 51 pg/mL Calcium 10.4 mg per dL, albumin 4.4 grams/deciliter. Laboratory Tests 03/04/20 03/04/20 04/10/20 08:10 08:10 08:00 Creatinine Estimated GFR Calcium Alkaline Phosphatase Albumin 1,25 Dihydroxy Vit D 54 1,25 Dihydroxy Vit D2 <8 25-OH Vitamin D Total TSH 2.49 Free T4 1.24 PTH Intact Calcium (PTH Intact) Ur 24 Hour Volume Ur Creatinine mg/dL Ur Calcium 24 Hr 69 Calcium/Creat 24 Hr 161 04/10/20 04/15/20 04/15/20 08:00 13:55 13:55 Creatinine Estimated GFR Calcium 10.4 H Alkaline Phosphatase Albumin 1,25 Dihydroxy Vit D 1,25 Dihydroxy Vit D2 25-OH Vitamin D Total TSH Free T4 PTH Intact 47 Calcium (PTH Intact) 10.7 H Ur 24 Hour Volume 500 Ur Creatinine mg/dL 85.07 Ur Calcium 24 Hr Calcium/Creat 24 Hr 05/18/20 09/09/20 08:45 08:00 Creatinine 0.83 Estimated GFR > 60 Calcium 10.1 10.3 H Alkaline Phosphatase 99 Albumin 4.6 1,25 Dihydroxy Vit D 1,25 Dihydroxy Vit D2 25-OH Vitamin D Total 37.4 TSH Free T4 PTH Intact Calcium (PTH Intact) Ur 24 Hour Volume Ur Creatinine mg/dL Ur Calcium 24 Hr Calcium/Creat 24 Hr Laboratory Tests 10/10/19 10/10/19 03/04/20 12:50 13:05 08:10 TSH 2.49 Free T4 1.24 PTH Intact Calcium (PTH Intact) Ur 24 Hour Volume Urine Creatinine 53 Ur Calcium 24 Hr Calcium/Creat 24 Hr Bone Specific Alk Phos 10.1 03/04/20 04/10/20 04/10/20 08:10 08:00 08:00 TSH Free T4 PTH Intact 54 Calcium (PTH Intact) 9.7 Ur 24 Hour Volume 500 Urine Creatinine Ur Calcium 24 Hr 69 Calcium/Creat 24 Hr 161 Bone Specific Alk Phos repeat labs off hydrochlorothiazide and alendronate show elevation in PTH and elevated calcium consistent with primary hyperparathyroidism PFS Medical History (Updated 06/19/24 @ 10:49 by Jannie Cardenas CMA) 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 Hyperparathyroidism Vitamin D deficiency Hypertension Hypercalcemia Non-toxic multinodular goiter Osteoporosis Surgical History Hx of angioplasty Hx of total hysterectomy Family History Father Unknown family medical history Mother Hypercholesteremia Sister Osteoporosis Social History Household Members: Spouse Alcohol intake: current Alcohol intake frequency: does not drink Patient Tobacco Use Status: Former Tobacco user Physical Exam Vital Signs: Last Vital Signs Pulse 76 06/19/24 10:50 BP 172/62 H 06/19/24 10:50 Pulse Ox 98 06/19/24 10:50 Oxygen Delivery Method Room Air 06/19/24 10:50 BMI result Body Mass Index 21.8 Assessment & Plan Assessment & Plan (1) Osteoporosis: Code(s): M81.0 - Age-related osteoporosis without current pathological fracture Category: Medical Plan: This 69-year-old female with history of low bone mass previously treated with alendronate . She was found to have labs consistent with primary hyperparathyroidism . The plan is to talk to pt about going for parathyroid exploration considering the history of moderate to severe osteoporosis. Will have patient stop the calcium supplementation but continue the vitamin-D. Will refer to Dr. Brice endocrine surgeon at [facility]. We will see patient back once she follows up after seeing Dr. Brice Orders: Referrals General Surgery Referral E21.3 - Hyperparathyroidism, unspecified Coding Level of Care Code Est Pt Level 3 (50167) Diagnoses Osteoporosis M81.0
[2024-06-19 10:50] VITALS: BP 172/62; PULSE 76; O2SAT 98; BMI 21.8
--- OUTSIDE RECORDS SUMMARY | 2024-06-19 12:20 | XMS_ITS | Encounter Summary ---
Author Organization [employer] Address [address] [place] [address] Care Team Providers Care Inspector Barrel Name Role Phone [facility] Primary Care Provider [phone] Reason for Visit * Reason Onset Date Comments FYI 08/25/2023 Encounter Details Date Type Department Care Team ([facility] Contact Info) Description 08/25/2023 Telephone [facility] [address] [place], [place] [phone] [facility] [address] [place], [place] [phone] FY Social History Tobacco Use Types Packs/Day Years Used Date Smoking Tobacco: Never Smokeless Tobacco: Never Alcohol Use Standard Drinks/Week Comments Never 0 (1 standard drink = 0.6 oz pur e alcohol) Depression Answer Date Recorded Patient Health Questionnaire-9 Score 0 06/23/2023 Patient Health Questionnaire-9 Score 0 06/23/2023 Last PHQ-9: Questionnaire Data Not on file 0 06/23/2023 Housing Stability Answer Date Recorded What is your housing situation today? I have bart mckeon 03/07/[address] you li ve. Do you have problems with any of the following? None of the above 03/07/2023 Food Insecurity Answer Date Recorded Within the past 12 months, y ou worried that your food would run out before you got money to buy more: Never True 03/07/2023 Within the past 12 months,th e food you bought just didn't last and you didn't have enough money to get more: Never True Transportation Answer Date Recorded In the past 12 months, has l ack of transportation kept you from medical appts, meetings, work or from getting things needed for daily living? No 03/07/2023 Utilities Answer Date Recorded In the past 12 months, has t he electric, gas, oil or water company threatened to shut off services in your home? No 03/07/2023 Depression Answer Date Recorded Patient Health Questionnaire-2 Score 0 06/23/2023 Comments Unknown Sex and Gender Information Value Date Recorded Sex Assigned at Female 03/07/2022 10:14 AM EDT Legal Sex Female 10:14 AM EDT Gender Identity Female 03/07/2022 10:14 AM EDT Sexual Orientation Straight 03/07/2022 10 :14 AM EDT documented as of this encounter Miscellaneous Notes * Telephone Encounter - Patria Lewis RN - 08/28/2023 10:05 AM EDT TC placed to [facility] endo, spoke to Kaylie, they report any rx other than a diuretic would be fine * Telephone Encounter - Patria Lewis RN - 08/25/2023 9:47 AM EDT FYI from [facility] endo * Telephone Encounter - Yakov Schulz - 08/25/2023 9:14 AM EDT Tc from [facility] with [facility] endocrinology wants to let the pcp know they will be stopping chlorthalidone (Hygroton) 25 MG tablet for 6 weeks because they are checking for hyperparathyroidism. If any questions you can contact Kaylie at [phone]. documented in this encounter Plan of Treatment Upcoming Encounters Date Type Department Care Team (Late st Contact Info) Description 07/19/2024 10:15 AM EDT Office Visit [facility] [address] [place] [address] [place], [employer] [address] [place], [place] [phone] documented as of this encounter Visit Diagnoses Not on filedocumented in this encounter Additional Health Concerns Assessment Noted Time PHQ-9 Depression Total Score: 0 06/23/19 24 10:29 AM EST documented as of this encounter Care Teams Inspector Barrel Relationship Specialty Start Date End Date Norma Warren FNP [address] [place] [id number] PCP - General Family Medicine 06/28/22 documented as of this encounter
--- OUTSIDE RECORDS SUMMARY | 2024-06-19 12:20 | XMS_ITS | Encounter Summary ---
Author Organization [employer] Address [address] [place] [address] Care Team Providers Care Ground School Instructor Name Role Phone [facility] Primary Care Provider [phone] Encounter Details Date Type Department Care Team ([facility] Contact Info) Description 08/30/2023 Orders Only [facility] [address] [place], [place] [phone] [facility], [facility] [address] [place] [address] Social History Tobacco Use Types Packs/Day Years [...] AM EDT documented as of this encounter Plan of Treatment Upcoming Encounters Date Type Department Care Team (Late st Contact Info) Description 07/19/2024 10:15 AM EDT Office Visit [facility] [address] [place] [address] Norma Warren FNP [address] [place] [address] documented as of this encounter Visit Diagnoses Not on filedocumented in this encounter Additional Health Concerns Assessment Noted Time PHQ-9 Depression Total Score: 0 06/23/19 24 10:29 AM EST documented as of this encounter Care Teams Ground School Instructor Relationship Specialty Start Date End Date Norma Warren FNP [address] [place] [address] PCP - General Family Medicine 06/28/22 documented as of this encounter
--- OUTSIDE RECORDS SUMMARY | 2024-06-19 12:20 | XMS_ITS | Encounter Summary ---
Author Organization [facility] Address [address] [place] [id number] Care Team Providers Care Chief Drafter Name Role Phone Norma Warren [employer]OPPER MARKET[employer] MANAGER Primary Care Provider [phone] Encounter Details Date Type Department Care Team ([facility] st Contact Info) Description 08/29/2023 Telephone Neurosurgery at [address] [facility] [address] [facility] [place] [address] Aleksandr Brennan MD [address] [place] [phone] Social History Tobacco Use Types Packs/Day Years Used Date Smoking Tobacco: Former Cigarettes Smokeless Tobacco: Never Alcohol Use Standard Drinks/Week Comments Never 0 (1 standard drink = 0.6 oz pur e alcohol) Comments Unknown Sex and Gender Information Value Date Recorded Sex Assigned at Not on file Legal Sex Female 12:22 PM EST Gender Identity Not on file Sexual Orientation Not on file documented as of this encounter Miscellaneous Notes * Telephone Encounter - Julianne Fonseca - 08/29/2023 9:07 AM EDT CARE CENTER MESSAGE Time of call: 9:07 AM Caller: GILMER WHITE Caller's relationship to patient: Calling from Reason for call: we dont participate with pt insurance and auth havent been obtained please call ptwill be cancelled if no auth is obtained Best telephone number for callback: [phone] Best time to return call Permission to leave message: Julianne Fonseca documented in this encounter Plan of Treatment Not on file documented as of this encounter Visit Diagnoses Not on filedocumented in this encounter Care Teams Chief Drafter Relationship Specialty Start Date End Date Norma Warren NP [address] [place] [phone] PCP - General 07/18/23 documented as of this encounter
--- OUTSIDE RECORDS SUMMARY | 2024-06-19 12:20 | XMS_ITS | Encounter Summary ---
Author Organization [facility] Address [address] [place] [id number] Care Team Providers Care Exercise Planner Name Role Phone Norma Warren ARMANI Primary Care Provider Reason for Referral * Imaging (Routine) - New Request Specialty Diagnoses / Procedures Referred By Luann deleon Referred To Contact Diagnostic Radiology Procedures CTA Head w and/or wo IV Contrast [facility] SCHEDULING [address] [place] [address] Phone: tel: Referral ID Status Reason Start Date Expiration Date V isits Requested Visits Authorized [id number] New Request 07/14/2023 07/13/2024 1 1 Encounter Details Date Type Department Care Team (Late st Contact Info) Description 07/14/2023 Scanned Document [facility] SCHEDULING [address] [place] [address] ProviderEthan . Social History Tobacco Use Types Packs/Day Years Used Date Smoking Tobacco: Never Assessed Comments Unknown Sex and Gender Information Value Date Recorded Sex Assigned at Not on file Legal Sex Female 12:22 PM EST Gender Identity Not on file Sexual Orientation Not on file documented as of this encounter Plan of Treatment Not on file documented as of this encounter Procedures Procedure Name Priority Date/Time Associated Diagnosis Comments CTA HEAD W AND/OR WO IV CONTRAST Routine 06/20/2023 12:28 PM EST documented in this encounter Results * CTA Head w and/or wo IV Contrast (06/20/2023 12:28 PM EST) Anatomical Region Laterality Modality Head, Ortho Head Computed Tomogr aphy us Historical Provider IMG CT ORDERABLES Final Resu lt documented in this encounter Visit Diagnoses Not on filedocumented in this encounter Care Teams Exercise Planner Relationship Specialty Start Date End Date Norma Warren NP [address] [phone] PCP - General 07/18/23 documented as of this encounter
--- OUTSIDE RECORDS SUMMARY | 2024-06-19 12:20 | XMS_ITS | Encounter Summary ---
Author Organization [employer] Address [address] [place] [address] Care Team Providers Care Labor Supervisor Name Role Phone [facility] Primary Care Provider [phone] Encounter Details Date Type Department Care Team ([facility] Contact Info) Description 05/20/2024 Refill [facility] [address] [place], [place] [phone] [facility] [address] [place] [address] History of intravascular stent placement Social History Tobacco Use Types Packs/Day Years Used Date Smoking Tobacco: Never Smokeless Tobacco: Never Alcohol Use Standard Drinks/Week Comments Never 0 (1 standard drink = 0.6 oz pur e alcohol) Alcohol Answer Date Recorded Frequency of Alcohol Consumption Not on file 09/06/2023 Average Number of Drinks Not on file 024 Frequency of Binge Drinking Not on file 05/2023 Score 0 09/06/2023 Depression Answer Date Recorded Patient Health Questionnaire-9 Score 0 09/06/2023 Patient Health Questionnaire-9 Score 0 09/06/2023 Last PHQ-9: Questionnaire Data Not on file 0 09/06/2023 Housing Stability Answer Date Recorded What is [...] Date Recorded Patient Health Questionnaire-2 Score 0 09/06/2023 Comments Unknown Sex and Gender Information Value [...] Description 07/19/2024 10:15 AM EDT Office Visit [facility] [address] [place] [address] [place] [facility] [address] [place] [address] documented as of this encounter Visit Diagnoses Diagnosis History of intravascular stent placement documented in this encounter Additional Health Concerns Assessment Noted Time PHQ-9 Depression Total Score: 0 09/06/19 24 3:35 PM EDT documented as of this encounter Care Teams Labor Supervisor Relationship Specialty Start Date End Date Norma Warren FNP [address] [place] [address] PCP - General Family Medicine 06/28/22 documented as of this encounter
--- OUTSIDE RECORDS SUMMARY | 2024-06-19 12:20 | XMS_ITS | Clinical Summary ---
Author Organization [employer] Address [address] [place] [address] Care Team Providers Care Building Energy Consultant Name Role Phone Norma Warren [facility] Primary Care Provider [phone] Allergies Active Allergy Reactions Criticality Noted Date Comments Sunil Inhibitors Cough 10/13/2011 Atorvastatin 05/22/2020 Other reaction(s): Abdominal discomfort Egg White (Egg Protein) 03/01/2012 Medications olmesartan (Benicar) 40 MG tabletIndications :Essential hypertension Take 1 tablet (40 mg) by mouth Once per day. 30 tablet 11 09/06/19 24 025 Active Calcium + Vitamin D3 600-5 MG-MCG tabletIndications :Age-related osteoporosis without current pathological fracture TAKE 1 TABLET BY MOUTH EVERY MORNING 30 tablet 11 09/19/19 24 Active Blood Pressure kitIndications:Es sential hypertension Use to monitor blood pressure as needed 1 kit 10/11/19 24 Active rosuvastatin (Crestor) 20 MG tabletIndications :Mixed hyperlipidemia TAKE 1 TABLET BY MOUTH EVERY MORNING 90 tablet 3 01/24/20 24 Active amLODIPine (Norvasc) 5 MG tabletIndications :Essential hypertension TAKE 1 TABLET BY MOUTH EVERY MORNING 30 tablet 3 04/15/20 24 Active latanoprost (Xalatan) 0.005 % ophthalmic solution Instill 1 drop into each eye at bedtime 04/10/20 24 Active aspirin 81 MG EC tablet Take 1 tablet (81 mg) by mouth Once per day. 90 tablet 3 05/24/19 25 026 Active Brilinta 90 MG tabletIndications :History of intravascular stent placement TAKE 1 TABLET BY MOUTH TWICE DAILY IN THE MORNING AND IN THE EVENING 60 tablet 06/13/19 25 Active brimonidine (AlphaGAN P) 0.2 % ophthalmic solution PLACE 1 DROP IN EACH EYE TWICE DAILY, 12 HOURS APART 07/23/19 23 025 Discontinued(M ed list cleanup (will not trigger notification to Pharmacy)) cholecalciferol (Vitamin D-3) 125 MCG (5000 UT) capsule Take 125 mcg by mouth in the morning. 12/04/19 22 025 Discontinued(M ed list cleanup (will not trigger notification to Pharmacy)) chlorthalidone (Hygroton) 25 MG tabletIndications :Essential hypertension Take 1 tablet (25 mg) by mouth in the morning. 30 tablet 11 04/19/20 23 025 Discontinued(M ed list cleanup (will not trigger notification to Pharmacy)) aspirin 81 MG EC tablet Take 81 mg by mouth. 11/13/19 24 025 Discontinued(R eorder (will not trigger notification to Pharmacy)) Brilinta 90 MG tabletIndications :History of intravascular stent placement Take 1 tablet (90 mg) by mouth 2 times daily. 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 Incidental finding of multiple other aneurysms in June 2023 during workup of headache/dizziness during high blood pressure episode. Followed by Dr. Hernandez at [facility] Primary hyperparathyroidism 06/22/2023 Thyroid goiter 10/18/2022 Overview (10/18/2022): ?? FNA 08/2020 negative ?? Repeat thyroid ultrasound recommended 08/2022 per endocrinology recommendation Assessment & Plan (01/18/2023 2:08 PM EDT): ?? Will order updated thyroid ultrasound Glaucoma 10/18/2022 Overview (10/18/2022): ?? Followed by [facility] Heart murmur 10/18/2022 Healthcare maintenance 10/18/2022 Overview (01/17/2024): Mammo:09/2023-Birads 2 Pap: S/p total hysterectomy. Paps discontinued C-scope: Declines colonoscopy. Cologuard ordered BMD: 05/2023-osteoporosis T score-3.3-->followed by endo History of total hysterectomy 09/16/2016 Age-related osteoporosis wit hout current pathological fracture 09/16/2016 Overview (09/07/2023): Followed by [facility] endocrinology Tx with alendronate Last DEXA 01/2020. See report in endocrinology note from 01/2022 Hx of mild PTH elevation - DEXA 05/2023- worsening Osteoporosis based on the lowest T-score value of -3.[address] [facility] Endo Dr. Manley Assessment & Plan (05/09/2023 12:41 PM EST): ?? Pt lost to follow up with Dr. Manley [facility] endo-will rerefer today ?? Updated DEXA order ?? Continue vitamin D and calcium supplementation Assessment & Plan (10/18/2022 9:43 AM EDT): ?? Continue calcium and vitamin D supplementation ?? Encouraged weight bearing activity ?? Repeat DEXA scan 01/2024 Essential hypertension 06/04/2015 Overview (05/09/2023): ?? Chlorthalidone 12.5mg ?? Amlodipine 10mg ?? Valsartan 40mg - Difficulty tolerating higher dose of valsartan d/t fatigue Maintenance: BMP: 10/2022 Lipid Panel: 10/2022 ASCVD Risk: >10% EKG: Obtain baseline at f/u - Aerobic exercise to reduce BP. Initial goal of 30 min walk 3-5x/week. Increase as tolerated. - low-sodium diet (goal: <2g/day) and heart healthy diet such as DASH to reduce BP and prevent ASCVD. - Home BP monitoring 1-2 x day with goal of <140/90. - Seek immediate medical attention for chest pain, palpitations, SOB, syncope, or sudden changes in mental status. - Do not change or discontinue current prescriptions without first consulting health care provider Assessment & Plan (05/09/2023 12:36 PM EST): ?? INCREASE chlorthalidone to 25mg once daily. Repeat BMP 2 weeks Assessment & Plan (01/18/2023 10:01 AM EDT): ?? STOP blood pressure medications ?? Patient will monitor x 2 weeks ?? Reviewed ED precautions to include chest pain, shortness of breath, severe headache, sudden vision changes or BP >=180/>=120 mmHg. Contact HC if three or more BP readings >140/90. ?? Pending RN BP check and review of home readings will consider if restarting medications indicated Assessment & Plan (10/18/2022 9:25 AM EDT): ?? Home BP well controlled ?? Continue current regimen ?? Complete previously ordered labs Hypercholesterolemia 06/04/2015 Overview (11/06/2023): Rosuvastatin 20mg daily Assessment & Plan (01/17/2023 9:15 PM EDT): ?? ASCVD risk >10% ?? Pt tolerating rosuvastatin well ?? Will increase to high dose statin Assessment & Plan (10/18/2022 9:37 AM EDT): ?? Complete previously ordered labs ?? Will adjust tx pending updated ASCVD risk score Encounters Date Type Department Care Team Description 06/13/2024 Refill [facility] [address] [place] [address] Norma Warren FNP History of intravascular stent placement 05/24/2024 Refill [facility] [address] [place] [address] Maritza Mansfield, RN 05/20/2024 Refill [facility] [address] [place] [address] Norma Warren FNP History of intravascular stent placement 05/20/2024 [facility] [address] [facility] [place] [address] [facility] History of intravascular stent placement 05/13/2024 Orders Only GENERIC EXTERNAL DATA DEPARTMENT Provider, Generic External Data 04/19/2024 Refill [facility] [address] [place] [address] [facility] History of intravascular stent placement 04/13/2024 Refill [facility] [address] [facility] [place] [address] [facility] Essential hypertension 03/26/2024 Telephone [facility] [address] [facility] [place] [address] [facility] telephone call 03/21/2024 Refill [facility] [place] [address] [facility] History of intravascular stent placement from Last 3 Months Immunizations Name Administration Dates Next Due Moderna Covid-19 Vaccine 12+ 09/23/2021 Pneumococcal Conjugate PCV 13 04/23/2018 Pneumococcal Polysaccharide PPSV23 03/10/2020 TD (adult), 2 Lf tetanus tox oid, preservative free, adsorbed 04/07/2005,01/26/1995 Tdap 10/18/2022,07/17/2012 Zoster, Recombinant 10/18/2021,08/09/2021 Zoster, live 01/31/2014 Social History Tobacco Use Types Packs/Day Years Used Date Smoking Tobacco: Never Smokeless Tobacco: Never Tobacco Cessation:Counseling Given: Not Answered Alcohol Use Standard Drinks/Week Comments Never 0 [...] Orientation Straight 03/07/2022 10 :14 AM EDT Last Filed Vital Signs Vital Sign Reading Time Taken Comments Blood Pressure 160/70 01/17/2024 12:09 PM EDT Pulse 84 01/17/2024 11:15 AM EDT Temperature 36.9 ??C (98.4 ??F) 01/17/2024 11:15 AM E DT Respiratory Rate 18 01/17/2024 11:15 AM EDT Oxygen Saturation 98% 11/28/2023 3:11 PM EDT Inhaled Oxygen Concentration - - Weight 57.2 kg (126 lb) 01/17/2024 11:15 AM EDT Height 160 cm (5' 3 ) 01/17/2024 11:15 AM EDT Body Mass Index 22.32 01/17/2024 11:15 AM EDT Plan of Treatment Upcoming Encounters Date Type Department Care Team (Late st Contact Info) Description 07/19/2024 10:15 AM EDT Office Visit [facility] [address] [place] [address] [place] Norma [facility] [address] [place] [address] Health Maintenance Due Date Last Done Comments CT Colonography 1955 Colonoscopy 1955 FIT 1955 FOBT 1955 Sigmoidoscopy 1955 COVID-19 Vaccine ( season) 2024 09/23/2021, 03/23/2021, 08/05/2020 Influenza Vaccine (#1) 2024 SDOH Screening 06/23/2024 06/23/2023 Alcohol/Substance Use Screening 09/05/2024 09/06/2023 Depression Screening 09/05/2024 09/06/2023, 09/06/19 Tobacco Screening 01/16/2025 01/17/2024 Mammogram 10/03/2025 10/04/2023, 01/06, 10/12/2020, Additional history exists Colorectal Cancer Screening 01/30/2027 FIT DNA/Cologuard 01/30/2027 01/31/2024 Lipid Panel 11/04/2027 11/03/2022, 01/03/2022 RSV Patients and Patients Aged 60 years or older (1 - 1-dose 75+ series) 02/16/2028 DTaP/Tdap/Td Vaccines (3 - Td or Tdap) 10/18/2032 10/18/2022, 07/17/2012, 04/07/2005, Additional history exists Pneumococcal Vaccine: 50+ Years Completed 03/10/2020, 04/23/2018 Zoster Vaccines Completed 10/18/2021, 04/0 08/2021, 01/31/2014 Hepatitis C Screening Completed 11/03/2022, 019 HIB Vaccines Aged Out No longer eligi ble based on patient's age to complete this topic HPV Vaccines Aged Out No longer eligi ble based on patient's age to complete this topic Hepatitis A Vaccines Aged Out No long er eligible based on patient's age to complete this topic Hepatitis B Vaccines Aged Out No long er eligible based on patient's age to complete this topic IPV Vaccines Aged Out No longer eligi ble based on patient's age to complete this topic Meningococcal Vaccine Aged Out No jaja jayla eligible based on patient's age to complete this topic RSV under 20 months Aged Out No longe r eligible based on patient's age to complete this topic Rotavirus Vaccines Aged Out No longer eligible based on patient's age to complete this topic Procedures Procedure Name Priority Date/Time Associated Diagnosis Comments VITAMIN D,25-OH,TOTAL,IA Routine 05/13/2024 6:20 AM EST PTH, INTACT WITHOUT CALCIUM Routine 05/13/2024 6:20 AM EST ALBUMIN Routine 05/13/2024 6:20 AM EST CALCIUM Routine 05/13/2024 6:20 AM EST CREATININE, SERUM Routine 05/13/2024 6:2 0 AM EST LAB COLOGUARD?? COLON CANCER SCREEN Routine 01/31/2024 7:55 AM EDT Encounter for screening for malignant neoplasm of colon BI MAMMOGRAM SCREENING TOMOSYNTHESIS BILATERAL Routine 10/04/2023 10:43 AM EDT Encounter for screening mammogram for breast cancer HEPATITIS C AB W/REFL TO HCV RNA, QN, PCR Routine 11/03/2022 8:05 AM EDT Healthcare maintenance LIPID PANEL, STANDARD Routine 11/03/2022 8:05 AM EDT Essential hypertension from Last 3 Months or Most Recently Relevant to Health Maintenance Results * Vitamin D, 25-Hydroxy, Total, Immunoassay (05/13/2024 6:20 AM EST) Vitamin D 25-OH Total 48.8 >30 ng/mL [facility] Comment:Health Based Referen ce Values*< 20 ng/mL Awwykusbm55-47 ng/mL Insufficient> 30 ng/mL Sufficient*Tommy GONZALEZ. N Engl J Med. 2007;357:266-280Care must be taken in interpreting Vitamin D results fromdifferent laboratories and methodologies. Published datademonstrated that results from patients undergoinghemodialysis may show a negative bias when tested withvarious automated 25-OH vitamin D assays when compared toLC-MS/MS.When testing samples from patients whose predominant form ofVitamin D is Vitamin D2, such as patients receiving VitaminD2 supplementation, results that are subtherapeutic shouldbe confirmed with another method such as LC-MS/MS. 05/13/2024 6:20 AM EST 05/13/2024 6:20 AM EST Generic External Data Provider LAB BLOOD ORDERAB LES Final Result Performing Organization Address [facility] Co de Phone Number [facility] [address] [place] [phone] * Creatinine, Serum (05/13/2024 6:20 AM EST) Creatinine, Serum 0.90 0.5 - 1.4 mg/dL [facility] Estimated Glomerular Filt Rate >60 [facility] Comment:Chronic Kidney Disea se: Estimated GFR < 60 mL/min/1.48n4Ienhwe Kidney Disease: Estimated GFR < 15 mL/min/1.73m2 05/13/2024 6:20 AM EST 05/13/2024 6:20 AM EST Generic External Data Provider LAB BLOOD ORDERAB LES Final Result Performing Organization Address [facility] Phone Number [facility] [address] [place] [address] [phone] * (ABNORMAL) PTH, Intact Without Calcium (05/13/2024 6:20 AM EST) Parathyroid Hormone, Intact 122.6(H) 8.7 - 77.1 pg/mL [facility] 05/13/2024 6:20 AM EST 05/13/2024 6:20 AM EST Generic External Data Provider LAB BLOOD ORDERAB LES Final Result Performing Organization Address [facility] de Phone Number [facility] [address] [place] [phone] * (ABNORMAL) Calcium (05/13/2024 6:20 AM EST) Calcium 10.3(H) 8.4 - 10.2 mg/dL [facility] 05/13/2024 6:20 AM EST 05/13/2024 6:20 AM EST Generic External Data Provider LAB BLOOD ORDERAB LES Final Result Performing Organization Address City/[facility]/ZIP Co de Phone Number [facility] [address] [place] [address] [phone] * Albumin (05/13/2024 6:20 AM EST) Albumin Level 4.5 3.5 - 5.0 g/dL [facility] 05/13/2024 6:20 AM EST 05/13/2024 6:20 AM EST Generic External Data Provider LAB BLOOD ORDERAB LES Final Result Performing Organization Address [facility] Co de Phone Number [facility] [address] [place] [address] [phone] * Cologuard?? colon cancer screening (01/31/2024 7:55 AM EDT) Cologuard Result Negative Negative 02/04/20 9:37 AM EDT [facility] (CLIA #:[id number]) Comment: NEGATIVE TEST RESULT. A negative Cologuard result indicates a low likelihood that a colorectal cancer (CRC) or advanced adenoma (adenomatous polyps with more advanced pre-malignant features) ??is present. The chance that a person with a negative Cologuard test has a colorectal cancer is less than 1 in 1500 (negative predictive value >99.9%) or has an ??advanced adenoma is less than ??5.3% (negative predictive value 94.7%). These data are based on a prospective cross-sectional study of 10,000 individuals at average risk for colorectal cancer who were screened with both Cologuard and colonoscopy. (Chaya Greene al, N Engl J Med 2014;370(14):1286- 1297) The normal value (reference range) for this assay is negative. COLOGUARD RE-SCREENING RECOMMENDATION: Periodic colorectal cancer screening is an important part of preventive healthcare for asymptomatic individuals at average risk for colorectal cancer. ??Following a negative Cologuard result, the Indian Cancer Society and U.S. Multi-Society Task Force screening guidelines recommend a Cologuard re-screening interval of 3 years. References: Indian Cancer Society Guideline for Colorectal Cancer Screening: https://www.cancer.org/cancer/mcrkp-wgqvzq-xrvvqz/pmgqykeyh-dmshqikbf-rwjgzra/ac s-rec ommendations.html.; Jorge CUNHA, Jacob MATHIAS, Da VargasK, Colorectal Cancer Screening: Recommendations for Physicians and Patients from the U.S. Multi-Society Task Force on Colorectal Cancer Screening , Am J Gastroenterology 2017; 112:2523-5078. TEST DESCRIPTION: Composite algorithmic analysis of stool DNA-biomarkers with hemoglobin immunoassay. ?? Quantitative values of individual biomarkers are not reportable and are not associated with individual biomarker result reference ranges. Cologuard is intended for colorectal cancer screening of adults of either sex, 45 years or older, who are at average-risk for colorectal cancer (CRC). Cologuard has been approved for use by the U.S. FDA. The performance of Cologuard was established in a cross sectional study of average-risk adults aged 50-84. Cologuard performance in patients ages 45 to 49 years was estimated by sub-group analysis of near-age groups. Colonoscopies performed for a positive result may find as the most clinically significant lesion: colorectal cancer [4.0%], advanced adenoma (including sessile serrated polyps greater than or equal to 1cm diameter) [20%] or non- advanced adenoma [31%]; or no colorectal neoplasia [45%]. These estimates are derived from a prospective cross-sectional screening study of 10,000 individuals at average risk for colorectal cancer who were screened with both Cologuard and colonoscopy. (Chaya Ribera, N Engl J Med 2014;370(14):8520-2700.) Cologuard may produce a false negative or false positive result (no colorectal cancer or precancerous polyp present at colonoscopy follow up). A negative Cologuard test result does not guarantee the absence of CRC or advanced adenoma (pre-cancer). The current Cologuard screening interval is every 3 years. (Indian Cancer Society and U.S. Multi-Society Task Force). Cologuard performance data in a 10,000 patient pivotal study using colonoscopy as the reference method can be accessed at the following location: www.[employer]/results. Additional description of the Cologuard test process, warnings and precautions can be found at www.[employer]versityrd.com. Stool specimen (specimen) 01/31/2024 7:55 AM EDT 02/01/2024 3:08 PM EDT [facility] LAB MOLECULAR DIAGNOSTICS ORD ERABLES Final Result [facility] (CLIA #:[id number]) [place] [address], * BI Mammogram Screening Tomosynthesis Bilateral (10/04/2023 10:43 AM EDT) Anatomical Region Laterality Modality Breast Bilateral Mammography 10/04/2023 10:4 3 AM EDT Narrative 10/31/2023 5:23 PM EDT ? [facility] ? [address] [facility] ?[place] [address] ? Mammography Report ? Signed ? Patient: Reuben Crowder,Paulette ?MR#: ?? [id number] ? : 1955 ?Acct:[id number] ? Age/Sex: 68 / F ?ADM Date: 05/29/24 ? Loc: HO.MAMMO ? Attending Dr: Norma Mayorgaside CLOTH MENDER ? Ordering Physician: [place],Norma CLOTH MENDER ?Results: 2Beni ?? gn Findings ? Date of Service: 10/04/23 ?Follow Up: 1 Year From Orig ?? inal Mammogram ? Procedure(s): MM tomosynthesis screening BI ?? Accession Number(s): [id number] ? cc: Norma Warren CLOTH MENDER ? EXAMINATION: ?? MM SCREENING DIGITAL BREAST TOMOSYNTHESIS, BILATERAL ? CLINICAL INFORMATION: ? Screening. Asymptomatic. ? COMPARISON: ?? Mammography: This study is compared with prior exams dating back to ?? 2019. ? TECHNIQUE: ?? Digital breast tomosynthesis is performed in both the craniocaudal and ?? mediolateral oblique views along with computer-aided detection (CAD). ?? Synthesized 2D images are generated from the tomosynthesis. ? FINDINGS: ?? The breasts are heterogeneously dense, which may obscure small masses ?? (ACR BI-RADS breast composition Category c). ? There are no significant masses, abnormal calcifications, or other ?? abnormalities. ? Few, bilateral, benign calcifications are present. ? MM/MM tomosynthesis screening BI ?? IMPRESSION: ? No mammographic evidence of malignancy. ? ASSESSMENT: ? BI-RADS BI-RADS 2 - Benign Findings ? RECOMMENDATION: ?? Routine annual mammography screening. ? 1 year F/U ? This examination should not preclude the clinical evaluation of a ?? suspicious palpable abnormality. ? This patient's information was entered into a reminder system with a ?? target due date for their next mammogram. ? Dictated By: ?Jerri Fairchild MD ? Signed By: ?<Electronically signed by Jerri Fairchild MD in OV> ? 10/31/23 1719 ? DD/ 1043 ? TD/TT: ? Account Manager B2B: ? Procedure Note Donotclaritzater, Image - 10/31/2023 [facility] [address] [place], [place] [address] Mammography Report Signed Patient: Cynthia ZamoraR#: [id number] : 1955cct:[id number] Age/Sex: 68 / FADM Date: 10/04/23 Loc: HO.MAMMO Attending Dr: Norma AGUILERA Ordering Physician: Norma Warren FNPResults: 2Beni gn Findings Date of Service: 10/04/23Follow Up: 1 Year From Orig inal Mammogram Procedure(s): MM tomosynthesis screening BI Accession Number(s): [id number] cc: Norma Warren EXAMINATION: MM SCREENING DIGITAL BREAST TOMOSYNTHESIS, BILATERAL CLINICAL INFORMATION: Screening. Asymptomatic. COMPARISON: Mammography: This study is compared with prior exams dating back to 2019. TECHNIQUE: Digital breast tomosynthesis is performed in both the craniocaudal and mediolateral oblique views along with computer-aided detection (CAD). Synthesized 2D images are generated from the tomosynthesis. FINDINGS: The breasts are heterogeneously dense, which may obscure small masses (ACR BI-RADS breast composition Category c). There are no significant masses, abnormal calcifications, or other abnormalities. Few, bilateral, benign calcifications are present. MM/MM tomosynthesis screening BI IMPRESSION: No mammographic evidence of malignancy. ASSESSMENT: BI-RADS BI-RADS 2 - Benign Findings RECOMMENDATION: Routine annual mammography screening. 1 year F/U This examination should not preclude the clinical evaluation of a suspicious palpable abnormality. This patient's information was entered into a reminder system with a target due date for their next mammogram. Dictated By: Jerri Fairchild MD Signed By: <Electronically signed by Jerri Fairchild MD in OV> 10/31/23 1719 DD/ 1043 TD/TT: Account Manager B2B: Norma Warren CLOTH MENDER IMG BI PROCEDURES Final Resul t * Hepatitis C Antibody with Reflex to HCV, RNA, Quantitative, Real-Time PCR (11/03/2022 8:05 AM EDT) Pathologist [facility] Hepatitis C Antibody NON-REACT ARTI NON-REACT ARTI [facility] Comment: HCV antibody was non-reactive. There is no laboratory evidence of HCV infection. In most cases, no further action is required. However, if recent HCV exposure is suspected, a test for HCV RNA (test code 49967) is suggested. For additional information please refer to http://education.[employer]/faq/TJF34e8 (This link is being provided for informational/ educational purposes only.) Blood Venous blood specimen / Unknown 11/03/2022 8:05 AM EDT 11/03/2022 8:05 AM EDT Narrative [facility] - 11/04/2022 5:44 PM EDT FASTING:YES FASTING: YES [facility] LAB BLOOD ORDERABLES Final Re sult [facility] [address], [place] [address] [facility] [address] [place] [address] * Lipid Panel, Standard (11/03/2022 8:05 AM EDT) [facility] Cholesterol, Total 146 <200 mg/dL [facility] HDL Cholesterol 57 > OR = 50 mg/dL [facility] Triglycerides 89 <150 mg/dL [facility] LDL Cholesterol 72 mg/dL (calc) [facility] Comment: Reference range: <100 Desirable range <100 mg/dL for primary prevention; ?? <70 mg/dL for patients with CHD or diabetic patients with > or = 2 CHD risk factors. LDL-C is now calculated using the Abel calculation, which is a validated novel method providing better accuracy than the Friedewald equation in the estimation of LDL-C. Rodolfo HINTON et al. VAL. 2013;310(19): 7047-1893 (http://education.[employer]/faq/EMU076) Chol/HDLC Ratio 2.6 <5.0 (calc) [employer] Non-HDL Cholesterol 89 <130 mg/dL (calc) [facility] Comment: For patients with diabetes plus 1 major ASCVD risk factor, treating to a non-HDL-C goal of <100 mg/dL (LDL-C of <70 mg/dL) is considered a therapeutic option. Blood Venous blood specimen / Unknown 11/03/2022 8:05 AM EDT 11/03/2022 8:05 AM EDT Narrative [facility] - 11/04/2022 5:44 PM EDT FASTING:YES FASTING: YES [facility] LAB BLOOD ORDERABLES Final Re sult [facility] [address], [place] [address] [employer] [place] [employer] [address] [place] [address] from Last 3 Months or Most Recently Relevant to Health Maintenance Insurance [facility] Care Teams Building Energy Consultant Relationship Specialty Start Date End Date Norma Warren FNP [address] [place] [phone] PCP - General Family Medicine 06/28/22
--- OUTSIDE RECORDS SUMMARY | 2024-06-19 12:20 | XMS_ITS | Clinical Summary ---
Author Organization [address] [address] Phone Care Team Providers Care Party Plan Sales Agent Name Role Phone [place] ASSOCIATE ATTORNEY Primary Care Provider [phone] Allergies Active Allergy Reactions Criticality Noted Date Comments Sunil Inhibitors Cough 10/13/2011 Atorvastatin Abdominal Pain 05/22/2020 Other reaction(s): Abdominal discomfort Egg White Diarrhea Low 03/01/2012 Medications brimonidine (ALPHAGAN) 0.2 % ophthalmic solution INSTILL 1 DROP IN EACH EYE TWICE DAILY (12 HOURS APART) 03/15/2023 Active calcium carbonate-vitam in D3 600 mg-5 mcg (200 unit) per tablet Take 1 tablet by mouth every morning. 06/29/2023 Active chlorthalidone (HYGROTEN) 25 mg tablet Take 1 tablet (25 mg total) by mouth every morning. Active olmesartan (BENICAR) 20 mg tablet Take 1 tablet (20 mg total) by mouth daily. 06/23/2023 Active Active Problems Problem Noted Date Diagnosed Date Cerebral aneurysm 07/24/2023 Primary hyperparathyroidism 06/22/2023 Glaucoma 10/18/2022 Overview (07/24/2023): ?? Followed by [facility] Heart murmur 10/18/2022 Thyroid goiter 10/18/2022 Overview (07/24/2023): ?? FNA 08/2020 negative ?? Repeat thyroid ultrasound recommended 08/2022 per endocrinology recommendation Last Assessment & Plan: ?? Will order updated thyroid ultrasound History of total hysterectomy 09/16/2016 Senile osteoporosis 09/16/2016 Overview (07/24/2023): ?? Followed by [facility] endocrinology ?? Tx with alendronate ?? Last DEXA 01/2020. See report in endocrinology note from 01/2022 ?? Hx of mild PTH elevation - Last Assessment & Plan: ?? Pt lost to follow up with Dr. Manley [facility] endo-will rerefer today ?? Updated DEXA order ?? Continue vitamin D and calcium supplementation Essential hypertension 06/04/2015 Overview (07/24/2023): ?? Chlorthalidone 12.5mg ?? Amlodipine 10mg ?? [...] prescriptions without first consulting health care provider Last Assessment & Plan: ?? INCREASE chlorthalidone to 25mg once daily. Repeat BMP 2 weeks Hypercholesterolemia 06/04/2015 Overview (07/24/2023): ?? Rosuvastatin 5mg daily Last Assessment & Plan: ?? ASCVD risk >10% ?? Pt tolerating rosuvastatin well ?? Will increase to high dose statin Immunizations Name Administration Dates Next Due [id number] 12Y+, 0.5 mL 09/23/2021 Pneumococcal conjugate PCV 13 04/23/2018 Pneumococcal polysaccharide PPSV23 03/10/2020 Tdap 10/18/2022,07/17/2012 ZOSTER LIVE (Zostavax) 01/31/2014 ZOSTER RECOMBINANT (Shingrix) 10/18/2021, 022 Family History Medical History Relation Name Comments Brain Aneurysm Sister Relation Name Status Comments Sister Social History Tobacco Use Types Packs/Day Years Used Date Smoking Tobacco: Former Cigarettes Smokeless Tobacco: Never Tobacco Cessation:Counseling Given: Not Answered Alcohol Use Standard Drinks/Week Comments Never 0 (1 standard drink = 0.6 oz pur e alcohol) Comments Unknown Sex and Gender Information Value Date Recorded Sex Assigned at Not on file Legal Sex Female 12:22 PM EST Gender Identity Not on file Sexual Orientation Not on file Last Filed Vital Signs Vital Sign Reading Time Taken Comments Blood Pressure - - Pulse - - Temperature - - Respiratory Rate - - Oxygen Saturation - - Inhaled Oxygen Concentration - - Weight 59 kg (130 lb) 07/24/2023 9:33 AM EDT Height 160 cm (5' 3 ) 07/24/2023 9:33 AM EDT Body Mass Index 23.03 07/24/2023 9:33 AM EDT Plan of Treatment Health Maintenance Due Date Last Done Comments HIV screening 1966 Hepatitis C screening 1971 Lipid disorder screening 1993 Colon cancer screening, Colonoscopy 1998 RSV Discussion (1 - Risk 60-74 years 1-dose series) 2013 Influenza vaccine 12/07/2023 Covid-19 vaccine series (2023- season) 2024 09/23/2021 Breast cancer screening 10/03/2025 10/04/19 24, 01/18/2022, 08/12/2019, Additional history exists Diabetes screening 08/03/2026 08/04/2023 Tetanus adult (Td q 10,TDAP once) 10/18/2032 10/18/2022, 07/17/2012 Shingles vaccine (Zostavax) Discontinued 01/31/2014 Pneumo Vaccine 65+ Completed 03/10/2020, 04/23/2018 Shingles vaccine (Shingrix) Completed 10/18/2021, 0 08/09/2021 Osteoporosis screening (bone density) Completed 06/02/2023, 06/02/2023 Cervical cancer screening Discontinued Meningococcal Vaccine Aged Out No jaja jayla eligible based on patient's age to complete this topic Procedures Procedure Name Priority Date/Time Associated Diagnosis Comments BASIC METABOLIC PANEL Routine 08/04/2023 8:11 AM EDT Cerebral aneurysm from Last 3 Months or Most Recently Relevant to Health Maintenance Results * Basic metabolic panel (08/04/2023 8:11 AM EDT) Glucose 114 65 - 139 mg/dL [facility] Comment: ? Non-fasting reference interval BUN 19 7 - 25 mg/dL [facility] Creatinine 0.94 0.60 - 1.00 mg/dL [facility] eGFR (Creatinine) 65 > OR = 60 mL/min/1. 73m2 [facility] BUN/Creatinine Ratio SEE NOTE: 6 - 22 (calc) [facility] Comment: ?? Not Reported: BUN and Creatinine are within ?? reference range. ? Sodium 140 135 - 146 mmol/L [facility] Potassium 3.6 3.5 - 5.3 mmol/L [facility] Chloride 99 98 - 110 mmol/L [facility] CO2 29 20 - 32 mmol/L [facility] Calcium 9.9 8.6 - 10.4 mg/dL [facility] Blood 08/04/2023 8:11 AM EDT 08/04/2023 8:12 AM EDT Narrative [facility] - 08/05/2023 7:31 AM EDT FASTING:NO FASTING: NO Resulting Agency Comment Performing Lab: ?Site ID: [id number] ?Name: [employer] ?Address: [address] [place] [id number] ?Director: Katia Schwab M.D. us Aleksandr Brennan MD LAB BLOOD ORDERABLES Final Result [address] from Last 3 Months or Most Recently Relevant to Health Maintenance Insurance MEDICARE MANAGED [facility] MEDICARE MANAGED [facility] MEDICARE MANAGED [facility] Care Teams Party Plan Sales Agent Relationship Specialty Start Date End Date Norma Warren NP [address] [place] [phone] PCP - General 07/18/23
--- OUTSIDE RECORDS SUMMARY | 2024-06-19 12:20 | XMS_ITS | Encounter Summary ---
Author Organization [employer] Address [address] [facility] 7t [place] [address] Care Team Providers Care Cement Sack Breaker Name Role Phone [facility] Primary Care Provider [phone] Reason for Visit * Reason Comments Med Refill Encounter Details Date Type Department Care Team ([facility] Contact Info) Description 05/20/2024 Refill [facility] MEDICINE [address] [place], [place] [phone] [facility] [address] [place], [place] [phone] History of intravascular stent placement Social History [...] Description 07/19/2024 10:15 AM EDT Office Visit [facility] MEDICINE [address] [place] [address] KelvinNorma [facility] [address] [place] [address] documented as of this encounter Visit Diagnoses Diagnosis History of intravascular stent placement documented in this encounter Additional Health Concerns Assessment Noted Time PHQ-9 Depression Total Score: 0 09/06/19 24 3:35 PM EDT documented as of this encounter Care Teams Cement Sack Breaker Relationship Specialty Start Date End Date Norma Warren FNP [address] [place] [address] PCP - General Family Medicine 06/28/22 documented as of this encounter
--- OUTSIDE RECORDS SUMMARY | 2024-06-19 12:20 | XMS_ITS | Encounter Summary ---
Author Organization [employer] Address [address] [facility] 7t [place] [address] Care Team Providers Care Offender Job Retention Specialist Name Role Phone Kelvin Norma [employer]EM[employer] Primary Care Provider [phone] Reason for Visit * Reason Onset Date Comments Med Refill 05/24/2024 Encounter Details Date Type Department Care Team ([facility] st Contact Info) Description 05/24/2024 Refill [facility] MEDICINE [address] [place], [place] [phone] Maritza Mans[place], LAURA [address] [place], [place] [phone] Social History Tobacco Use Types Packs/Day Years [...] 07/19/2024 10:15 AM EDT Office Visit [facility] MEDICINE [address] [place] [address] Norma Warren FNP [address] [place] [address] documented as of this encounter Visit Diagnoses Not on filedocumented in this encounter Additional Health Concerns Assessment Noted Time PHQ-9 Depression Total Score: 0 09/06/19 24 3:35 PM EDT documented as of this encounter Care Teams Offender Job Retention Specialist Relationship Specialty Start Date End Date Norma Warren FNP [address] [place] [address] PCP - General Family Medicine 06/28/22 documented as of this encounter
--- OUTSIDE RECORDS SUMMARY | 2024-06-19 12:20 | XMS_ITS | Encounter Summary ---
Author Organization [employer] Address [address] [facility] [address] 7[address] [place] [address] Care Team Providers Care Webbing Supervisor Name Role Phone [facility] Primary Care Provider Reason for Visit * Reason Comments Med Refill Encounter Details Date Type Department Care Team ([facility] Contact Info) Description 02/14/2023 Refill [facility] MED & PEDS [address] [place], [place] [phone] [facility] [address] [facility] [place] [address] Mixed hyperlipidemia Social History Tobacco Use Types Packs/Day Years Used Date Smoking Tobacco: Never Smokeless Tobacco: Never Alcohol Use Standard Drinks/Week Comments Never 0 (1 standard drink = 0.6 oz pur e alcohol) Depression Answer Date Recorded Patient Health Questionnaire-9 Score 0 01/18/2023 Housing Stability Answer Date Recorded What is your housing situation today? I have bart mckeon 02/14/[address] you li ve. Do you have problems with any of the following? None of the above 02/14/2023 Food Insecurity Answer Date Recorded Within the past 12 months, y ou worried that your food would run out before you got money to buy more: Never True 02/14/2023 Within the past 12 months,th e food you bought just didn't last and you didn't have enough money to get more: Never True 02/2023 Transportation Answer Date Recorded In the past 12 months, has l ack of transportation kept you from medical appts, meetings, work or from getting things needed for daily living? No 02/14/2023 Utilities Answer Date Recorded In the past 12 months, has t he electric, gas, oil or water company threatened to shut off services in your home? No 02/14/2023 Depression Answer Date Recorded Patient Health Questionnaire-2 Score 0 01/18/2023 Comments Unknown Sex and Gender Information Value [...] Description 07/19/2024 10:15 AM EDT Office Visit [facility] MEDICINE [address] [place] [address] Norma Warren FNP [address] [place] [address] documented as of this encounter Visit Diagnoses Diagnosis Mixed hyperlipidemia documented in this encounter Additional Health Concerns Assessment Noted Time PHQ-9 Depression Total Score: 0 01/19/20 9:18 AM EDT documented as of this encounter Care Teams Webbing Supervisor Relationship Specialty Start Date End Date Norma Warren FNP [address] [place] [address] PCP - General Family Medicine 06/28/22 documented as of this encounter
--- OUTSIDE RECORDS SUMMARY | 2024-06-19 12:20 | XMS_ITS | Encounter Summary ---
Author Organization [employer] Address [address] [facility] 7t [place] [address] Care Team Providers Care Parachute Inspector Name Role Phone [facility] Primary Care Provider [phone] Reason for Visit * Reason Comments Med Refill Encounter Details Date Type Department Care Team ([facility] Contact Info) Description 06/13/2024 Refill [facility] MEDICINE [address] [place], [place] [phone] [facility] [address] [place], [place] [phone] History of intravascular stent placement Social History [...] Description 07/19/2024 10:15 AM EDT Office Visit [facility] MEDICINE [address] [place] [address] KelvinNorma [facility] [address] [place] [address] documented as of this encounter Visit Diagnoses Diagnosis History of intravascular stent placement documented in this encounter Additional Health Concerns Assessment Noted Time PHQ-9 Depression Total Score: 0 09/06/19 24 3:35 PM EDT documented as of this encounter Care Teams Parachute Inspector Relationship Specialty Start Date End Date Norma Warren FNP [address] [place] [address] PCP - General Family Medicine 06/28/22 documented as of this encounter
== END 2024-06-19 11:10 | disposition home or self-care (01) ==
PROVIDERS: PCP Registered Nurse; Visit Provider Internal Medicine Endocrinology, Diabetes & Metabolism
DX: M81.0 Age-related osteoporosis without current pathological fracture (principal)
CPT/HCPCS: 99213

== ENCOUNTER → 2024-06-19 10:32 | Outpatient (BNVA) | payer OTHER, SELFPAY | PROVIDERS: PCP Registered Nurse; Visit Provider Internal Medicine Endocrinology, Diabetes & Metabolism | DX: M81.0 Age-related osteoporosis without current pathological fracture (principal) | CPT/HCPCS: 99212 ==

== ENCOUNTER 2024-08-15 08:35 | Outpatient (REF) | payer OTHER, SELFPAY ==
--- OUTSIDE RECORDS SUMMARY | 2024-08-15 08:52 | XMS_ITS | Encounter Summary ---
Author Organization [employer] Address [address] [facility] 7t [place] [address] Care Team Providers Care Major Gifts Officer Name Role Phone [facility] Primary Care Provider [phone] Reason for Visit * Reason Comments Med Refill Encounter Details Date Type Department Care Team ([facility] Contact Info) Description 05/20/2024 Refill [facility] MEDICINE [address] [place], [place] [phone] [facility] 230 [place], [place] [phone] History of intravascular stent placement Social History [...] documented as of this encounter Care Teams Major Gifts Officer Relationship Specialty Start Date End Date Norma Warren FNP [address] [place] [phone] PCP - General Family Medicine 06/28/22 documented as of this encounter
--- OUTSIDE RECORDS SUMMARY | 2024-08-15 08:52 | XMS_ITS | Clinical Summary ---
Author Organization [employer] Address [address] 7t [place] [address] Care Team Providers Care Resawyer Name Role Phone [facility] Primary Care Provider [phone] Allergies Active Allergy Reactions Criticality Noted Date Comments Sunil Inhibitors Cough 10/13/2011 Atorvastatin 05/22/2020 Other reaction(s): Abdominal discomfort Egg White (Egg Protein) 03/01/2012 Medications Calcium + Vitamin D3 600-5 MG-MCG tabletIndications: Age-related osteoporosis without current pathological fracture TAKE 1 TABLET BY MOUTH EVERY MORNING 30 tablet 11 09/19/19 24 Active Blood Pressure kitIndications:Ess ential hypertension Use to monitor blood pressure as needed 1 kit 10/11/19 24 Active rosuvastatin (Crestor) 20 MG tabletIndications: Mixed hyperlipidemia TAKE 1 TABLET BY MOUTH EVERY MORNING 90 tablet 3 01/24/20 24 Active latanoprost (Xalatan) 0.005 % ophthalmic solution Instill 1 drop into each eye at bedtime 04/10/20 24 Active aspirin 81 MG EC tablet Take 1 tablet (81 mg) by mouth Once per day. 90 tablet 3 05/24/19 25 026 Active olmesartan (BENIcar) 40 MG tabletIndications: Essential hypertension TAKE 1 TABLET BY MOUTH EVERY MORNING 30 tablet 11 08/06/19 25 Active amLODIPine (Norvasc) 5 MG tabletIndications: Essential hypertension TAKE 1 TABLET BY MOUTH EVERY MORNING 30 tablet 11 08/06/19 25 Active Brilinta 90 MG tabletIndications: History of intravascular stent placement TAKE 1 TABLET BY MOUTH TWICE DAILY IN THE MORNING AND IN THE EVENING 60 tablet 08/15/19 25 Active olmesartan (Benicar) 40 MG tabletIndications: Essential hypertension Take 1 tablet (40 mg) by mouth Once per day. 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 Incidental finding of multiple other aneurysms in June 2023 during workup of headache/dizziness during high blood pressure episode. Followed by Dr. Hernandez at [facility] Neurosurgery Primary hyperparathyroidism 06/22/2023 Thyroid goiter 10/18/2022 Overview (10/18/2022): ?? FNA 08/2020 negative ?? Repeat thyroid ultrasound recommended 08/2022 per endocrinology recommendation Assessment & Plan (01/18/2023 2:08 PM EDT): ?? Will order updated thyroid ultrasound Glaucoma 10/18/2022 Overview (10/18/2022): ?? Followed by [facility] Heart murmur 10/18/2022 Healthcare maintenance 10/18/2022 Overview (01/17/2024): Mammo:09/2023-Birads 2 Pap: S/p total hysterectomy. Paps discontinued C-scope: Declines colonoscopy. Cologuard ordered BMD: 05/2023-osteoporosis T score-3.3-->followed by [facility] History of total hysterectomy 09/16/2016 Age-related osteoporosis wit hout current pathological fracture 09/16/2016 Overview (09/07/2023): Followed by [facility] endocrinology Tx with alendronate [id number] Last DEXA 01/2020. See report in endocrinology note from 01/2022 Hx of mild PTH elevation - DEXA 05/2023- worsening Osteoporosis based on the lowest T-score value of -3.3 Followed by [facility] Endo Dr. Manley Assessment & Plan (05/09/2023 [...] Encounters Date Type Department Care Team Description 08/12/2024 Refill [facility] MEDICINE [address], [place] [address] Norma Warren FNP History of intravascular stent placement 08/03/2024 Refill [facility] MED[facility] [address], [place] [address] Norma Warren FNP Essential hypertension 07/19/2024 10:15 AM EDT Office Visit [facility] [address] [place] [address] Norma Warren FNP Labile hypertension (Primary Dx); Primary hyperparathyroidism (CMS/HCC); Cerebral aneurysm, nonruptured 07/19/2024 Travel 07/11/2024 Refill [facility] MED[facility]INE [address], [place] [address] Norma Warren FNP History of intravascular stent placement 06/13/2024 Refill [facility] MED[facility]INE [address], [place] [address] Norma Warren FNP History of intravascular stent placement 05/24/2024 Refill [facility] MED[facility]INE [address] [place] [address] Maritza Mansfield, RN 05/20/2024 Refill [facility] MED[facility]INE 230 [facility] [place] [address] [facility] History of intravascular stent placement 05/20/2024 Refill [facility] MED[facility]INE [address], [place] [address] [facility] History of intravascular stent placement from Last [...] Date Recorded Patient Health Questionnaire-9 Score 0 07/19/2024 Patient Health Questionnaire-9 Score 0 07/19/2024 Last PHQ-9: Questionnaire Data Not on file 0 07/19/2024 Housing Stability Answer Date Recorded What is your housing situation today? I have bart mckeon 07/19/[address] you li ve. Do you have problems with any of the following? None of the above 07/19/2024 Food Insecurity Answer Date Recorded Within the past 12 months, y ou worried that your food would run out before you got money to buy more: Never True 07/19/2024 Within the past 12 months,th e food you bought just didn't last and you didn't have enough money to get more: Never True Transportation Answer Date Recorded In the past 12 months, has l ack of transportation kept you from medical appts, meetings, work or from getting things needed for daily living? No 07/19/2024 Utilities Answer Date Recorded In the past 12 months, has t he electric, gas, oil or water company threatened to shut off services in your home? No 07/19/2024 Depression Answer Date Recorded Patient Health Questionnaire-2 Score 0 07/19/2024 Internet Access Answer Date Recorded Internet Access Q1 Yes 07/19/2024 Internet Access Q2 Not on file 07/19/2024 Comments No Sex and Gender Information Value Date Recorded Sex Assigned at Female 03/07/2022 10:14 AM EDT Legal Sex Female 10:14 AM EDT Gender Identity Female 03/07/2022 10:14 AM EDT Sexual Orientation Straight 03/07/2022 10 :14 AM EDT Last Filed Vital Signs Vital Sign Reading Time Taken Comments Blood Pressure 142/62 07/19/2024 9:37 AM EDT Pulse 84 07/19/2024 9:37 AM EDT Temperature 36 ??C (96.8 ??F) 07/19/2024 9:37 AM EDT Respiratory Rate 20 07/19/2024 9:37 AM EDT Oxygen Saturation 98% 11/28/2023 3:11 PM EDT Inhaled Oxygen Concentration - - Weight 55.6 kg (122 lb 9.6 oz) 07/19/2024 9:37 A M EDT Height 160 cm (5' 3 ) 07/19/2024 9:37 AM EDT Body Mass Index 21.72 07/19/2024 9:37 AM EDT Plan of Treatment Health Maintenance Due Date Last Done Comments CT Colonography 1955 Colonoscopy 1955 FIT 1955 FOBT 1955 Sigmoidoscopy 1955 COVID-19 Vaccine ( season) 2024 09/23/2021, 03/23/2021, 08/05/2020 Influenza Vaccine (#1) 2024 Alcohol/Substance Use Screening 09/05/2024 09/06/2023 Depression Screening 07/19/2025 07/19/2024, 07/20/19 SDOH Screening 07/19/2025 07/19/2024 Tobacco Screening 07/22/2025 07/22/2024 Mammogram 10/03/2025 10/04/2023, 01/06, 10/12/2020, Additional history [...] Procedure Name Priority Date/Time Associated Diagnosis Comments LAB COLOGUARD?? COLON CANCER SCREEN Routine 01/31/2024 [...] Recently Relevant to Health Maintenance Results * Cologuard?? colon cancer screening (01/31/2024 7:55 AM EDT) Cologuard Result Negative Negative 02/04/20 9:37 AM EDT [employer] (CLIA #:[id number]) Comment: NEGATIVE TEST RESULT. A negative Cologuard [...] screened with both Cologuard and colonoscopy. (Chaya Osuna et al, N Engl J Med 2014;370(14):1286- 1297) The normal value (reference range) for this assay is negative. COLOGUARD RE-SCREENING RECOMMENDATION: Periodic colorectal cancer screening is an important part of preventive healthcare for asymptomatic individuals at average risk for colorectal cancer. ??Following a negative Cologuard result, the [place] [employer] Society and U.S. Multi-Society Task Force screening guidelines recommend a Cologuard re-screening interval of 3 years. References: [place] [employer] Guideline for Colorectal Cancer Screening: https://www.cancer.org/cancer/cpjbm-xbkywu-ndrune/rvnjjhqqd-upxuicvha-gpmzdfh/ac s-rec ommendations.html.; Jorge DK, Jacob CR, Da VargasK, Colorectal Cancer Screening: Recommendations for Physicians and Patients from the U.S. Multi-Society Task Force on Colorectal Cancer Screening , Am J Gastroenterology 2017; 112:3478-8135. TEST DESCRIPTION: Composite algorithmic analysis of stool [...] (Chaya Greene al, N Engl J Med 2014;370(14):5826-8671.) Cologuard may produce a false negative or false positive result (no colorectal cancer or precancerous polyp present at colonoscopy follow up). A negative Cologuard test result does not guarantee the absence of CRC or advanced adenoma (pre-cancer). The current Cologuard screening interval is every 3 years. ([place] [employer] Society and U.S. Multi-Society Task Force). Cologuard performance data in a 10,000 patient pivotal study using colonoscopy as the reference method can be accessed at the following location: www.[employer].Fugoo/results. Additional description of the Cologuard test process, warnings and precautions can be found at www.[employer].com. Stool specimen (specimen) 01/31/2024 7:55 AM EDT 02/01/2024 3:08 PM EDT [facility] PIPE SUPERVISOR LAB MOLECULAR DIAGNOSTICS ORD ERABLES Final Result [employer] [facility] [employer] (CLIA #:[id number]) [address] [place] [address], * BI Mammogram Screening Tomosynthesis Bilateral (10/04/2023 10:43 AM EDT) Anatomical Region Laterality Modality Breast Bilateral Mammography 10/04/2023 10:4 3 AM EDT Narrative 10/31/2023 5:23 PM EDT ? [facility] ? [address] ?[place], [place] [address] ? Mammography Report ? Signed ? Patient: Paulette Zamora ?MR#: ?? [id number] ? : 1955 ?Acct:[id number] ? Age/Sex: 68 / F ?ADM Date: 10/04/23 ? Loc: HO.MAMMO ? Attending Dr: Norma Warren PIPE SUPERVISOR ? Ordering Physician: Norma Warren PIPE SUPERVISOR ?Results: 2Beni ?? gn Findings ? Date of Service: 10/04/23 ?Follow Up: 1 Year From Orig ?? inal Mammogram ? Procedure(s): MM tomosynthesis screening BI ?? Accession Number(s): [id number] ? cc: Norma Warren PIPE SUPERVISOR ? EXAMINATION: ?? MM SCREENING DIGITAL BREAST [...] by Jerri Fairchild MD in OV> ? 10/31/239 ? DD/ 1043 ? TD/TT: ? Warranty Clerk: ? Procedure Note Paco, Image - 10/31/2023 [facility] [address] [place] [address] Mammography Report Signed Patient: Rayshawn Zamora#: [id number] : 3Acct:[id number] Age/Sex: 68 / FADM Date: 10/04/23 Loc: MANJU Attending Dr: Norma Warren PIPE SUPERVISOR Ordering Physician: Norma Warren FNPResults: 2Beni gn Findings Date of Service: 10/04/23Follow Up: 1 Year From Orig inal Mammogram Procedure(s): MM tomosynthesis screening BI Accession Number(s): [id number] cc: Norma Warren PIPE SUPERVISOR EXAMINATION: MM SCREENING DIGITAL BREAST TOMOSYNTHESIS, BILATERAL [...] in OV> 10/31/23 1719 DD/ 1043 TD/TT: Warranty Clerk: [facility] IMG BI PROCEDURES Final Resul t * Hepatitis C Antibody with Reflex to HCV, RNA, Quantitative, Real-Time PCR (11/03/2022 8:05 AM EDT) Hepatitis C Antibody NON-REACT ARTI NON-REACT ARTI [facility] Comment: HCV antibody was non-reactive. There is no laboratory evidence of HCV infection. In most cases, no further action is required. However, if recent HCV exposure is suspected, a test for HCV RNA (test code 72757) is suggested. For additional information please refer to http://education.[employer].Fugoo/faq/UDL37g7 (This link is being provided for informational/ educational purposes only.) Blood Venous blood specimen / Unknown 11/03/2022 8:05 AM EDT 11/03/2022 8:05 AM EDT Narrative [facility] - 11/04/2022 5:44 PM EDT FASTING:YES FASTING: YES [facility] LAB BLOOD ORDERABLES Final Re sult [facility] [address], [place] [address] [facility] [address] [place] [address] * Lipid Panel, Standard (11/03/2022 8:05 AM EDT) Cholesterol, Total 146 <200 mg/dL [facility] HDL Cholesterol 57 > OR = 50 mg/dL [facility] Triglycerides 89 <150 mg/dL [facility] LDL Cholesterol 72 mg/dL (calc) [facility] Comment: Reference range: <100 Desirable range <100 mg/dL for primary prevention; ?? <70 mg/dL for patients with CHD or diabetic patients with > or = 2 CHD risk factors. LDL-C is now calculated using the Abel calculation, which is a validated novel method providing better accuracy than the Friedewald equation in the estimation of LDL-C. Rodolfo SS et al. VAL. 2013;310(19): 4125-8375 (http://education.[employer].Fugoo/faq/HES080) Chol/HDLC Ratio 2.6 <5.0 (calc) [facility] Non-HDL Cholesterol 89 <130 mg/dL (calc) [facility] Comment: For patients with diabetes plus 1 major ASCVD risk factor, treating to a non-HDL-C goal of <100 mg/dL (LDL-C of <70 mg/dL) is considered a therapeutic option. Blood Venous blood specimen / Unknown 11/03/2022 8:05 AM EDT 11/03/2022 8:05 AM EDT Narrative [facility] - 11/04/2022 5:44 PM EDT FASTING:YES FASTING: YES [facility] LAB BLOOD ORDERABLES Final Re sult [facility] [address], [place] [address] [facility] [address] [place] [address] from Last 3 Months or Most Recently Relevant to Health Maintenance [place] [address] [place] [address] - [employer] Care Teams Resawyer Relationship Specialty Start Date End Date Norma Warren FNP [address] [place] [address] PCP - General Family Medicine 06/28/22
--- OUTSIDE RECORDS SUMMARY | 2024-08-15 08:52 | XMS_ITS | Encounter Summary ---
Author Organization [employer] Address [address] 7t [place] [address] Care Team Providers Care Liquor Store Manager Name Role Phone [facility] Primary Care Provider [phone] Reason for Visit * Reason Onset Date Comments FYI 08/25/2023 Encounter Details Date Type Department Care Team ([facility] Contact Info) Description 08/25/2023 Telephone [facility] MEDICINE [address] [place], [place] [phone] [facility] 230 [place], [place] [phone] FY Social History Tobacco Use Types Packs/Day [...] 08/28/2023 10:05 AM EDT TC placed to [facility] end[facility], spoke to Kaylie, they report any rx other than a diuretic would be fine * Telephone Encounter - Patria Lewis RN - 08/25/2023 9:47 AM EDT FYI from [facility] end[facility] * Telephone Encounter - Yakov Schulz - 08/25/2023 9:14 AM EDT Tc from [facility] with [facility] endocrinology wants to let the pcp know they will be stopping chlorthalidone (Hygroton) 25 MG tablet for 6 weeks because they are checking for hyperparathyroidism. If any questions you can contact Kaylie at [phone]. documented in this encounter Plan of Treatment Not on file documented as of this encounter Visit Diagnoses Not on filedocumented in this encounter Additional Health Concerns Assessment Noted Time PHQ-9 Depression Total Score: 0 06/23/19 24 10:29 AM EST documented as of this encounter Care Teams Liquor Store Manager Relationship Specialty Start Date End Date Norma Warren FNP [address] [place] [phone] PCP - General Family Medicine 06/28/22 documented as of this encounter
--- OUTSIDE RECORDS SUMMARY | 2024-08-15 08:52 | XMS_ITS | Encounter Summary ---
Author Organization [employer] Address [address] 7[address] [place] [address] Care Team Providers Care Hot Box Operator Name Role Phone [facility] Primary Care Provider [phone] Reason for Visit * Reason Comments Med Refill Encounter Details Date Type Department Care Team ([facility] Contact Info) Description 02/14/2023 Refill [facility]EDS [address] [place], [place] [phone] [facility] [address] [facility] [place] [place] [address] Mixed hyperlipidemia Social History Tobacco Use Types [...] documented as of this encounter Care Teams Hot Box Operator Relationship Specialty Start Date End Date Norma Warren FNP [address] [place] [address] PCP - General Family Medicine 06/28/22 documented as of this encounter
--- OUTSIDE RECORDS SUMMARY | 2024-08-15 08:52 | XMS_ITS | Encounter Summary ---
Author Organization [facility] Address [address] [place] [phone] Care Team Providers Care Charge Master Coordinator Name Role Phone Norma Warren ARMANI Primary Care Provider Reason for Referral * Imaging (Routine) - Closed Specialty Diagnoses / Procedures Referred By Luann deleon Referred To Contact Diagnostic Radiology Procedures CTA Head w and/or wo IV Contrast [facility] SCHEDULING [address] [place] [address] Phone: tel: Referral ID Status Reason Start Date Expiration Date Visits Re quested Visits Authorized [id number] Closed 07/14/2023 07/13/2024 1 1 Encounter Details Date Type Department Care Team (Late st Contact Info) Description 07/14/2023 Scanned Document [facility] SCHEDULING [address] [place] [address] Ethan Rose . Social History Tobacco Use Types Packs/Day [...] on filedocumented in this encounter Care Teams Charge Master Coordinator Relationship Specialty Start Date End Date Norma Warren NP [address] [place] [phone] PCP - General 07/18/23 documented as of this encounter
--- OUTSIDE RECORDS SUMMARY | 2024-08-15 08:52 | XMS_ITS | Encounter Summary ---
Author Organization [employer] Address [address] 7[address] [place] [address] Care Team Providers Care Radiology Nurse Name Role Phone [facility] Primary Care Provider [phone] Encounter Details Date Type Department Care Team ([facility] Contact Info) Description 08/30/2023 Orders Only [facility] MEDICINE [address] [place], [place] [phone] [facility] 230 [place] [address] Social History Tobacco Use Types Packs/Day Years [...] documented as of this encounter Care Teams Radiology Nurse Relationship Specialty Start Date End Date Norma Warren FNP [address] [place] [phone] PCP - General Family Medicine 06/28/22 documented as of this encounter
--- OUTSIDE RECORDS SUMMARY | 2024-08-15 08:52 | XMS_ITS | Encounter Summary ---
Author Organization [employer] Address [address] [facility] 7t [place] [address] Care Team Providers Care Landscape Crew Leader Name Role Phone [facility] Primary Care Provider [phone] Reason for Visit * Reason Comments Med Refill Encounter Details Date Type Department Care Team ([facility] Contact Info) Description 08/12/2024 Refill [facility] MEDICINE 230 [place], [place] [phone] [facility] 230 [place], [place] [phone] History of intravascular stent placement Social History [...] Noted Time PHQ-9 Depression Total Score: 0 07/20/19 25 9:44 AM EDT documented as of this encounter Care Teams Landscape Crew Leader Relationship Specialty Start Date End Date Norma Warren FNP [address] [place] [address] PCP - General Family Medicine 06/28/22 documented as of this encounter
--- OUTSIDE RECORDS SUMMARY | 2024-08-15 08:52 | XMS_ITS | Clinical Summary ---
Author Organization [address] [address] Phone Care Team Providers Care Manager Forms Name Role Phone [facility] PACKAGING TECHNICIAN Primary Care Provider [phone] Allergies Active Allergy Reactions Criticality Noted Date [...] Glaucoma 10/18/2022 Overview (07/24/2023): ?? Followed by [facility] Heart murmur 10/18/2022 Thyroid goiter 10/18/2022 Overview (07/24/2023): ?? FNA 08/2020 negative ?? Repeat thyroid ultrasound recommended 08/2022 per endocrinology recommendation Last Assessment & Plan: ?? Will order updated thyroid ultrasound History of total hysterectomy 09/16/2016 Senile osteoporosis 09/16/2016 Overview (07/24/2023): ?? Followed by [facility] ?? Tx with alendronate [id number] ?? Last DEXA 01/2020. See report in endocrinology note from 01/2022 ?? Hx of mild PTH elevation - Last Assessment & Plan: ?? Pt lost to follow up with Dr. Manley [facility] end[facility]-will rerefer today ?? Updated DEXA order [...] statin Immunizations Name Administration Dates Next Due COVIDGisela19RENAA 12Y+, 0.5 mL 09/23/2021 Pneumococcal conjugate PCV [...] 1993 Colon cancer screening, Colonoscopy 1998 RSV Immunization (1 - Risk 60-74 years 1-dose series) 2013 Covid-19 vaccine series ( season) 2024 09/23/2021 Influenza vaccine 01/06/2025 Breast cancer screening 10/03/2025 10/04/19 24, 01/18/2022, 08/12/2019, Additional history exists Diabetes screening 08/03/2026 08/04/2023 Tetanus adult (Td q 10,TDAP once) 10/18/2032 10/18/2022, 07/17/2012 Shingles vaccine (Zostavax) Discontinued 01/31/2014 Pneumococcal Vaccine (50+ years) Completed 03/10/2020, 04/23/2018 Shingles vaccine (Shingrix) Completed [...] Comment Performing Lab: ?Site ID: [id number] ?Name: [facility] ?Address: [address] [place] [phone] ?Director: Katia Schwab M.D. Aleksandr Brennan MD LAB BLOOD ORDERABLES Final Result [facility] [address] from Last 3 Months or Most Recently Relevant to Health Maintenance Insurance MEDICARE MANAGED [facility] MEDICARE MANAGED [facility] MEDICARE MANAGED [facility] Care Teams Manager Forms Relationship Specialty Start Date End Date Norma Warren NP [address] [place] [phone] PCP - General 07/18/23
--- OUTSIDE RECORDS SUMMARY | 2024-08-15 08:52 | XMS_ITS | Encounter Summary ---
Author Organization [facility] Address [address] [place] [phone] Care Team Providers Care Production Control Manager Name Role Phone Norma Warren LAUNDRY TECHNICIAN Primary Care Provider [phone] Encounter Details Date Type Department Care Team ([facility] st Contact Info) Description 08/29/2023 Telephone Neurosurgery at [address] [facility] [address] [place] [address] Aleksandr Brennan MD [address] [place] [phone] Social History Tobacco Use Types Packs/Day Years [...] is obtained Best telephone number for callback: [phone] Best time to return call Permission to leave message: Julianne Fonseca documented in this encounter Plan of Treatment Not on file documented as of this encounter Visit Diagnoses Not on filedocumented in this encounter Care Teams Production Control Manager Relationship Specialty Start Date End Date Norma Warren NP [address] [place] [phone] PCP - General 07/18/23 documented as of this encounter
[2024-08-15 11:56] LABS: Appearance Urine Turbid; Color Urine Yellow; Glucose Urine UA Negative (Negative); Leukocyte Esterase Urine Large (3+) (Negative); Nitrite Urine Negative (Negative); PH 6.5 (5.0-9.0); Specific Gravity - Urine 1.015 (1.005-1.025); UMIC TRIGGER UA YES; Urine Blood Moderate (2+) (Negative); Urine Ketones Trace mg/dL (Negative); Urine Protein 30 (1+) mg/dL (Neg-Trace)
[2024-08-15 12:15] LABS: Bacteria Urine 3+ (None Seen); Hyaline Casts Urine 0-2 /LPF (0-2); Parathyroid Hormone Intact 120.1 pg/mL (8.7-77.1); RBC Urine 0-2 /HPF (0-2); WBC Urine >50 /HPF (0-5)
[2024-08-15 12:20] LABS: Albumin Level 4.2 g/dL (3.5-5.0); Anion Gap 15 (12-20); Blood Urea Nitrogen 9 mg/dL (9-16); Carbon Dioxide 26 mmol/L (22-29); Chloride 105 mmol/L (96-108); Estimated Glomerular Filt Rate > 60; Glucose Random 95 mg/dL (60-115); Potassium 3.9 mmol/L (3.3-5.1); Sodium 142 mmol/L (135-145)
== END 2024-08-15 08:36 | disposition home or self-care (01) ==
LOC: HO.HHCL 08:35
PROVIDERS: Internal Medicine Endocrinology, Diabetes & Metabolism; Visit Provider Internal Medicine Hypertension Specialist
DX: E83.52 Hypercalcemia (principal)
CPT/HCPCS: 36415; 80048; 81001; 82040; 83970

== ENCOUNTER 2024-08-22 15:15 | Outpatient (AMB) | payer OTHER, SELFPAY ==
--- NOTE | 2024-08-22 15:15 | HO.NEPHOV ---
Vital Signs 08/22/24 15:16 08/22/24 15:30 Height 5 ft 3 in BP 160/50 H 140/60 H Blood Pressure Location Lt brachial Lt brachial Position Sitting Sitting Pulse 98 Pulse Oximetry (%) 96 Oxygen Delivery Method Room Air Intake Visit Reasons: Hypercalcemia/ Conf Continuous Improvement Consultant Required: Yes Continuous Improvement Consultant Language: Business Services Intern Name: Sanchez [id number] Accompanied by: Self / Same As Patient Allergies atorvastatin [Lipitor] Allergy (Unknown, Verified 08/22/24 15:19) Unknown cholecalciferol (vitamin D3) [From Vitamin D3] Allergy (Verified 08/22/24 15:19) itchy Medication List - Last Reconciled 08/22/24 by Bernardo Dave MD amlodipine 5 mg PO DAILY aspirin 81 mg PO DAILY calcium carbonate 600 mg PO DAILY 30 days cholecalciferol (vitamin D3) 50 mcg PO DAILY olmesartan 40 mg PO DAILY rosuvastatin 20 mg PO BEDTIME ticagrelor (Brilinta) 90 mg PO BID hipkulc-sxilfguzgd-zretzlo(PF) 0.5-2-0.005 % drps ophthalmic (eye) Do you need a note to return to daycare/school/sports/work: No HPI Comments Details: 68-year-old woman with a history of hypertension and hyperlipidemia who has a history of cerebral aneurysm has been referred for evaluation of hypertension. She has had labile hypertension and has had significant fluctuating blood pressure readings. She is currently on amlodipine chlorthalidone and olmesartan. Based on the history it appears that there could be an issue with the compliance She was accompanied by a family member was able to translate. History of hypercalcemia due to primary hyperparathyroidism. She has been followed by endocrinology. She underwent 24 hour ABP M. 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 Hyperparathyroidism Vitamin D deficiency Hypertension Hypercalcemia Non-toxic multinodular goiter Osteoporosis Surgical History Hx of angioplasty Hx of total hysterectomy Family History Father Unknown family medical history Mother Hypercholesteremia Sister Osteoporosis Social History Household Members: Spouse Alcohol intake: current Alcohol intake frequency: does not drink Patient Tobacco Use Status: Former Tobacco user Physical Exam Vital Signs: Last Vital Signs Pulse 98 08/22/24 15:16 BP 160/50 H 08/22/24 15:16 Pulse Ox 96 08/22/24 15:16 Oxygen Delivery Method Room Air 08/22/24 15:16 Const General: comfortable; No acute distress Orientation/consciousness: patient oriented x3 Eyes General: appearance normal, both eyes and all related structures Visual Roth: normal visual roth by confrontation Neck Neck: Yes supple and Yes no JVD Resp Effort & Inspection: normal respiratory effort and respiratory effort not decreased Auscultation: rhonchi Cardio Palpation: no palpable S3 and no palpable S4 Heart sounds: no rubs GI Inspection: Yes normal to inspection Palpation (GI): Soft to palpation Percussion: Yes normal to percussion Auscultation: normal bowel sounds General: Yes no CVA tenderness Back/Spine/Pelvis Back: no CVA tenderness Skin General skin exam: no petechiae and no purpura Neuro General: patient oriented x3 and no focal motor deficits Extrem General: No clubbing and No edema Results Reviewed Nephrology Results: Sodium 142 mmol/L (135-145) 08/15/24 Potassium 3.9 mmol/L (3.3-5.1) 08/15/24 Chloride 105 mmol/L (96-108) 08/15/24 Carbon Dioxide 26 mmol/L (22-29) 08/15/24 BUN 9 mg/dL (9-16) 08/15/24 Creatinine 0.76 mg/dL (0.5-1.4) 08/15/24 Calcium 10.0 mg/dL (8.4-10.2) 08/15/24 PTH Intact 120.1 pg/mL (8.7-77.1) H 08/15/24 Urine Protein 30 (1+) mg/dL (Neg-Trace) H 08/15/24 Assessment & Plan Assessment & Plan (1) Hypercalcemia: Code(s): E83.52 - Hypercalcemia Category: Medical (2) Hypertension: Code(s): I10 - Essential (primary) hypertension Category: Medical Plan 69-year-old man with history of labile hypertension cerebral aneurysm. History of hypercalcemia due to primary hyperparathyroidism. 24 hour ABP M reveals well-controlled hypertension. No nocturnal dipping. She has superimposed white coat effect. Encouraged her to stay on low-sodium diet. She had mild hypokalemia and alkalosis. Although this could be due to the use of diuretics Based on serum aldosterone and plasma renin activity, primary hyperaldosteronism seems unlikely. For now I encouraged her to stay on the current antihypertensive medication. She needs to monitor blood pressure at home and based on home blood pressure readings medications were adjusted. Today have not been any changes to medications based on the ABP M readings. Renal function is normal at this time. Serum calcium has normalized. . Scribe Plan - Not visible on output: wce Coding Level of Care Code Est Pt Level 4 (06210) Diagnoses Hypercalcemia E83.52 Hypertension I10
[2024-08-22 15:16] VITALS: BP 160/50; PULSE 98; O2SAT 96
[2024-08-22 15:30] VITALS: BP 140/60
--- OUTSIDE RECORDS SUMMARY | 2024-08-22 17:57 | XMS_ITS | Encounter Summary ---
Author Organization [employer] Address [address] [place] [address] Care Team Providers Care Senior Software Quality Engineer Name Role Phone [facility] Primary Care Provider [phone] Reason for Visit * Reason Comments Med Refill Encounter Details Date Type Department Care Team ([facility] Contact Info) Description 02/14/2023 Refill [facility] [address] [place], [place] [phone] [facility] [address] [place] [address] Mixed hyperlipidemia Social History Tobacco Use Types [...] documented as of this encounter Care Teams Senior Software Quality Engineer Relationship Specialty Start Date End Date Norma Warren FNP [address] [place] [phone] PCP - General Family Medicine 06/28/22 documented as of this encounter
--- OUTSIDE RECORDS SUMMARY | 2024-08-22 17:57 | XMS_ITS | Clinical Summary ---
Author Organization [employer] Address [address] 7[address] [place] [address] Care Team Providers Care Master Ocean Yacht Name Role Phone [facility] [place] [facility] Primary Care Provider [phone] Allergies Active Allergy Reactions Criticality Noted Date [...] aneurysm status post craniotomy/clipping in 1981 at [facility] in [place], [place] with no further complications or follow up. Incidental finding of multiple other aneurysms in June 2023 during workup of headache/dizziness during high blood pressure episode. Followed by Dr. Hernandez at [facility] Neurosurgery Primary hyperparathyroidism 06/22/2023 Thyroid goiter 10/18/2022 Overview (10/18/2022): ?? FNA 08/2020 negative ?? Repeat thyroid ultrasound recommended 08/2022 per endocrinology recommendation Assessment & Plan (01/18/2023 2:08 PM EDT): ?? Will order updated thyroid ultrasound Glaucoma 10/18/2022 Overview (10/18/2022): ?? [facility] Heart murmur 10/18/2022 Healthcare maintenance 10/18/2022 Overview (01/17/2024): Mammo:09/2023-Birads 2 Pap: S/p total hysterectomy. Paps discontinued C-scope: Declines colonoscopy. Cologuard ordered BMD: 05/2023-osteoporosis T score-3.3-->followed by francisco History of total hysterectomy 09/16/2016 Age-related osteoporosis wit hout current pathological fracture 09/16/2016 Overview (09/07/2023): Followed by [facility] endocrinology Tx with alendronate [id number] Last DEXA 01/2020. See report in endocrinology note from 01/2022 Hx of mild PTH elevation - DEXA 05/2023- worsening Osteoporosis based on the lowest T-score value of -3.3 Followed by [facility] Endo Dr. Manley Assessment & Plan (05/09/2023 12:41 PM EST): ?? Pt lost to follow up with Dr. Manley [facility] endo-will rerefer today ?? Updated DEXA order [...] Encounters Date Type Department Care Team Description 08/15/2024 Orders Only GENERIC EXTERNAL DATA DEPARTMENT Provider, Generic External Data 08/12/2024 Refill [facility] [address] [facility] [place] [address] Norma Warren FNP History of intravascular stent placement 08/03/2024 Refill [facility] [address] [facility] [place] [address] Norma Warren FNP Essential hypertension 07/19/2024 10:15 AM EDT Office Visit [facility] [address] [facility] [place] [address] Norma Warren FNP Labile hypertension (Primary Dx); Primary hyperparathyroidism (CMS/HCC); Cerebral aneurysm, nonruptured 07/19/2024 Travel 07/11/2024 Refill [facility] [address] [facility] [place] [address] Norma Warren FNP History of intravascular stent placement 06/13/2024 Refill [facility] [address] [facility] [place] [address] Norma Warren FNP History of intravascular stent placement 05/24/2024 Refill [facility] [address] [place] [address] Maritza Mansfield RN from Last 3 Months Immunizations Name Administration [...] Procedure Name Priority Date/Time Associated Diagnosis Comments URINALYSIS, COMPLETE Routine 08/15/2024 8:37 AM EDT LAB COLOGUARD?? COLON CANCER SCREEN Routine 01/31/2024 [...] Recently Relevant to Health Maintenance Results * (ABNORMAL) Urinalysis Complete (08/15/2024 8:37 AM EDT) Color Urine Yellow [facility] Appearance Urine Turbid [facility] PH 6.5 5.0 - 9.0 [facility] Glucose Urine UA Negative Negative mg/dL [facility] Urine Blood Moderate (2+)(A) Negative [facility] Specific Hubbell - Urine 1.015 1.005 - 1.025 [facility] Urine Protein 30 (1+)(A) Neg-Trace mg/dL [facility] Urine Ketones Trace Negative mg/dL [facility] Nitrite Urine Negative Negative [facility] Leukocyte Esterase Urine Large (3+)(A) Negative [facility] RBC Urine 0-2 0 - 2 /HPF [facility] Urine WBC >50(A) 0 - 5 /HPF [facility] Urine Squamous Epithelial Cell 3-5 0 - 2 /HPF [facility] Urine Bacteria 3+ None Seen [facility] Hyaline Casts, Urine 0-2 0 - 2 /LPF [facility] 08/15/2024 8:37 AM EDT 08/15/2024 11:43 AM EDT us Generic External Data Provider LAB URINE ORDERAB LES Final Result Performing Organization Address City/State/[facility] Co de Phone Number [facility] [address] [place] [phone] * Cologuard?? colon cancer screening (01/31/2024 7:55 AM EDT) Cologuard Result Negative Negative 02/04/20 9:37 AM EDT [employer] (CLIA #:[id number]) Comment: NEGATIVE TEST RESULT. A negative Cologuard [...] cancer. ??Following a negative Cologuard result, the [place] Cancer Society and U.S. Multi-Society Task Force screening guidelines recommend a Cologuard re-screening interval of 3 years. References: [place] Cancer Society Guideline for Colorectal Cancer Screening: https://www.cancer.org/cancer/fkpbp-kaydet-jbgtfs/dkspgnvlq-sqhrqgdwp-ymclkrf/ac s-rec ommendations.html.; Jorge CUNHA, Jacob MATHIAS, Da VargasK, Colorectal Cancer Screening: Recommendations for Physicians and Patients from the U.S. Multi-Society Task Force on Colorectal Cancer Screening , Am J Gastroenterology 2017; 112:6417-4590. TEST DESCRIPTION: Composite algorithmic analysis of stool [...] Osuna et al, N Engl J Med 2014;370(14):1038-6439.) Cologuard may produce a false negative or false positive result (no colorectal cancer or precancerous polyp present at colonoscopy follow up). A negative Cologuard test result does not guarantee the absence of CRC or advanced adenoma (pre-cancer). The current Cologuard screening interval is every 3 years. ([place] Cancer Society and U.S. Multi-Society Task Force). Cologuard performance data in a 10,000 patient pivotal study using colonoscopy as the reference method can be accessed at the following location: www.[employer].LifeWave/results. Additional description of the Cologuard test process, warnings and precautions can be found at www.cologBeijing [employer].LifeWave. Stool specimen (specimen) 01/31/2024 7:55 AM EDT 02/01/2024 3:08 PM EDT [facility] PREVENTIVE MAINTENANCE ENGINEER LAB MOLECULAR DIAGNOSTICS ORD ERABLES Final Result [employer] (CLIA #:[id number]) [address] [place] [address], * BI Mammogram Screening Tomosynthesis Bilateral (10/04/2023 10:43 AM EDT) Anatomical Region Laterality Modality Breast Bilateral Mammography 10/04/2023 10:4 3 AM EDT Narrative 10/31/2023 5:23 PM EDT ? [facility] [place] ? [address] ?[place] [address] ? Mammography Report ? Signed ? Patient: Reuben Crowder,Paulette ?MR#: ?? [id number] ? : 1955 ?Acct:[id number] ? Age/Sex: 68 / F ?ADM Date: 05/29/24 ? Loc: HO.MAMMO ? Attending Dr: Norma Warren PREVENTIVE MAINTENANCE ENGINEER ? Ordering Physician: Norma Warren PREVENTIVE MAINTENANCE ENGINEER ?Results: 2Beni ?? gn Findings ? Date of Service: 10/04/23 ?Follow Up: 1 Year From Orig ?? inal Mammogram ? Procedure(s): MM tomosynthesis screening BI ?? Accession Number(s): [id number] ? cc: Norma Warren PREVENTIVE MAINTENANCE ENGINEER ? EXAMINATION: ?? MM SCREENING DIGITAL BREAST [...] 1719 ? DD/ 1043 ? TD/TT: ? Accessibility Lift Technician: ? Procedure Note Donotuseinterpreter, Image - 10/31/2023 [facility] [address] [place], [place] [address] Mammography Report Signed Patient: Rayshawn Zamora#: [id number] : 1955cct:[id number] Age/Sex: 68 / FADM Date: 10/04/23 Loc: MAMMO Attending Dr: Norma Warren PREVENTIVE MAINTENANCE ENGINEER Ordering Physician: Norma Warren FNPResults: 2Beni gn Findings Date of Service: 10/04/23Follow Up: 1 Year From Orig inal Mammogram Procedure(s): MM tomosynthesis screening BI Accession Number(s): [id number] cc: Norma Warren PREVENTIVE MAINTENANCE ENGINEER EXAMINATION: MM SCREENING DIGITAL BREAST TOMOSYNTHESIS, BILATERAL [...] in OV> 10/31/23 1719 DD/ 1043 TD/TT: Accessibility Lift Technician: [facility] IMG BI PROCEDURES Final Resul t * Hepatitis C Antibody with Reflex to HCV, RNA, Quantitative, Real-Time PCR (11/03/2022 8:05 AM EDT) Hepatitis C Antibody NON-REACT ARTI NON-REACT ARTI [employer] Comment: HCV antibody was non-reactive. There is no laboratory evidence of HCV infection. In most cases, no further action is required. However, if recent HCV exposure is suspected, a test for HCV RNA (test code 46007) is suggested. For additional information please refer to http://[employer].More Design/faq/FJD39w7 (This link is being provided for informational/ educational purposes only.) Blood Venous blood specimen / Unknown 11/03/2022 8:05 AM EDT 11/03/2022 8:05 AM EDT Narrative [facility] - 11/04/2022 5:44 PM EDT FASTING:YES FASTING: YES [facility] LAB BLOOD ORDERABLES Final Re sult [facility] [address] [place] [address] [employer] [place] [employer] [facility] [address] [place] [address] * Lipid Panel, Standard (11/03/2022 8:05 AM EDT) Cholesterol, Total 146 <200 mg/dL [employer] HDL Cholesterol 57 > OR = 50 mg/dL [employer] [place] [employer] Triglycerides 89 <150 mg/dL [employer] [place] [employer] LDL Cholesterol 72 mg/dL (calc) [employer] [place] [employer] Comment: Reference range: <100 Desirable range <100 mg/dL for primary prevention; ?? <70 mg/dL for patients with CHD or diabetic patients with > or = 2 CHD risk factors. LDL-C is now calculated using the Abel calculation, which is a validated novel method providing better accuracy than the Friedewald equation in the estimation of LDL-C. Rodolfo HINTON et al. VAL. 2013;310(19): 8651-0401 (http://education.[employer]/faq/YQJ965) Chol/HDLC Ratio 2.6 <5.0 (calc) [employer] Non-HDL Cholesterol 89 <130 mg/dL (calc) [employer] Comment: For patients with diabetes plus 1 major ASCVD risk factor, treating to a non-HDL-C goal of <100 mg/dL (LDL-C of <70 mg/dL) is considered a therapeutic option. Blood Venous blood specimen / Unknown 11/03/2022 8:05 AM EDT 11/03/2022 8:05 AM EDT Narrative [facility] - 11/04/2022 5:44 PM EDT FASTING:YES FASTING: YES [facility] PREVENTIVE MAINTENANCE ENGINEER LAB BLOOD ORDERABLES Final Re sult [facility] [address], [place] [address] [employer] [place] [employer] [facility] [address] [place] [phone] from Last 3 Months or Most Recently Relevant to Health Maintenance Insurance [facility] Care Teams Master Ocean Yacht Relationship Specialty Start Date End Date Norma Warren FNP [address] [place] [phone] PCP - General Family Medicine 06/28/22
--- OUTSIDE RECORDS SUMMARY | 2024-08-22 17:57 | XMS_ITS | Encounter Summary ---
Author Organization [employer] Address [address] [facility] 7t [place] [address] Care Team Providers Care Capping Machine Operator Name Role Phone [facility] Primary Care Provider [phone] Reason for Visit * Reason Onset Date Comments FYI 08/25/2023 Encounter Details Date Type Department Care Team ([facility] Contact Info) Description 08/25/2023 Telephone [facility] [address] [place], [place] [phone] [facility] 230 [place], [place] [phone] FY Social History Tobacco Use Types Packs/Day [...] 08/28/2023 10:05 AM EDT TC placed to [facility] endo, spoke to Kaylie, they report any rx other than a diuretic would be fine * Telephone Encounter - Patria Lewis RN - 08/25/2023 9:47 AM EDT FYI from [facility] endo * Telephone Encounter - Yakov Schulz - 08/25/2023 9:14 AM EDT Tc from [facility] with [facility] endocrinology wants to let the pcp know they will be stopping chlorthalidone (Hygroton) 25 MG tablet for 6 weeks because they are checking for hyperparathyroidism. If any questions you can contact Kaylie at [phone]. documented in this encounter Plan of Treatment Not on file documented as of this encounter Visit Diagnoses Not on filedocumented in this encounter Additional Health Concerns Assessment Noted Time PHQ-9 Depression Total Score: 0 06/23/19 24 10:29 AM EST documented as of this encounter Care Teams Capping Machine Operator Relationship Specialty Start Date End Date Norma Warren FNP [address] [place] [address] PCP - General Family Medicine 06/28/22 documented as of this encounter
--- OUTSIDE RECORDS SUMMARY | 2024-08-22 17:57 | XMS_ITS | Encounter Summary ---
Author Organization [employer] Address [address] [facility] 7t [place] [address] Care Team Providers Care Light Rail Vehicle Operator Name Role Phone [facility] Primary Care Provider [phone] Reason for Visit * Reason Comments Med Refill Encounter Details Date Type Department Care Team ([facility] Contact Info) Description 05/20/2024 Refill [facility] 230 [place], [place] [phone] [facility] 230 [place], [place] [phone] History of intravascular stent placement Social History [...] documented as of this encounter Care Teams Light Rail Vehicle Operator Relationship Specialty Start Date End Date Norma Warren FNP [address] [place] [address] PCP - General Family Medicine 06/28/22 documented as of this encounter
--- OUTSIDE RECORDS SUMMARY | 2024-08-22 17:57 | XMS_ITS | Encounter Summary ---
Author Organization [employer] Address [address] [place] [address] Care Team Providers Care Bureau Director Name Role Phone [facility] Primary Care Provider [phone] Encounter Details Date Type Department Care Team ([facility] Contact Info) Description 08/30/2023 Orders Only [facility] 230 [place], [place] [phone] [facility] 230 [place] [address] Social History Tobacco Use Types Packs/Day Years [...] documented as of this encounter Care Teams Bureau Director Relationship Specialty Start Date End Date Norma Warren FNP [address] [place] [address] PCP - General Family Medicine 06/28/22 documented as of this encounter
--- OUTSIDE RECORDS SUMMARY | 2024-08-22 17:58 | XMS_ITS | Encounter Summary ---
Author Organization [facility] Address [address] [place] [phone] Care Team Providers Care Customer Professional Name Role Phone Norma Warren APPLIED BIOLOGY PROFESSOR Primary Care Provider [phone] Encounter Details Date Type Department Care Team ([facility] Contact Info) Description 08/29/2023 Telephone Neurosurgery at [address] [facility] [address] [facility] [place] [address] Aleksandr Brennan MD [address] [place] [phone] Social History Tobacco Use Types Packs/Day Years [...] is obtained Best telephone number for callback: [phone] Best time to return call Permission to leave message: Julianne Fonseca documented in this encounter Plan of Treatment Not on file documented as of this encounter Visit Diagnoses Not on filedocumented in this encounter Care Teams Customer Professional Relationship Specialty Start Date End Date Norma Warren NP [address] [place] [phone] PCP - General 07/18/23 documented as of this encounter
--- OUTSIDE RECORDS SUMMARY | 2024-08-22 17:58 | XMS_ITS | Clinical Summary ---
Author Organization [address] [address] Phone Care Team Providers Care Data Security Analyst Name Role Phone [place] LEGISLATIVE AIDE Primary Care Provider [phone] Allergies Active Allergy Reactions Criticality Noted Date [...] Glaucoma 10/18/2022 Overview (07/24/2023): ?? Followed by [facility] Heart murmur 10/18/2022 Thyroid goiter 10/18/2022 Overview (07/24/2023): ?? FNA 08/2020 negative ?? Repeat thyroid ultrasound recommended 08/2022 per endocrinology recommendation Last Assessment & Plan: ?? Will order updated thyroid ultrasound History of total hysterectomy 09/16/2016 Senile osteoporosis 09/16/2016 Overview (07/24/2023): ?? Followed by [facility] endocrinology ?? Tx with alendronate [id number] ?? Last DEXA 01/2020. See report in endocrinology note from 01/2022 ?? Hx of mild PTH elevation - Last Assessment & Plan: ?? Pt lost to follow up with Dr. Manley [facility] endo-will rerefer today ?? Updated DEXA [...] Comment Performing Lab: ?Site ID: [id number] ?Name: [facility] ?Address: [address] [place] [phone] ?Director: Katia Schwab M.D. Aleksandr Brennan MD LAB BLOOD ORDERABLES Final Result [facility] [address] from Last 3 Months or Most Recently Relevant to Health Maintenance Insurance MEDICARE MANAGED [facility] MEDICARE MANAGED [facility] MEDICARE MANAGED [facility] Care Teams Data Security Analyst Relationship Specialty Start Date End Date Norma Warren NP [address] [place] [phone] PCP - General 07/18/23
--- OUTSIDE RECORDS SUMMARY | 2024-08-22 17:58 | XMS_ITS | Encounter Summary ---
Author Organization [facility] and [facility] Address [address] [place] [id number] Care Team Providers Care Computer Project Manager Name Role Phone Norma Warren ARMANI Primary Care Provider [phone] Reason for Referral * Imaging (Routine) - Closed Specialty Diagnoses / Procedures Referred By Luann deleon Referred To Contact Diagnostic Radiology Procedures CTA Head w and/or wo IV Contrast [facility] SCHEDULING [address] [place] [address] Phone: tel: Referral ID Status Reason Start Date Expiration Date Visits Re quested Visits Authorized [id number] Closed 07/14/2023 07/13/2024 1 1 Encounter Details Date Type Department Care Team (Late st Contact Info) Description 07/14/2023 Scanned Document [facility] SCHEDULING [address] [place] [address] Ethan Rose . Social History Tobacco Use [...] on filedocumented in this encounter Care Teams Computer Project Manager Relationship Specialty Start Date End Date Norma Warren NP [address] [place] [phone] PCP - General 07/18/23 documented as of this encounter
== END 2024-08-22 15:33 | disposition home or self-care (01) ==
LOC: HO.HKA 15:15
PROVIDERS: PCP Registered Nurse; Visit Provider Internal Medicine Hypertension Specialist
DX: E83.52 Hypercalcemia (principal); I10 Essential (primary) hypertension
CPT/HCPCS: 99214

== ENCOUNTER → 2024-08-22 15:15 | Outpatient (BNVA) | payer OTHER, SELFPAY | PROVIDERS: PCP Registered Nurse; Visit Provider Internal Medicine Hypertension Specialist | DX: I10 Essential (primary) hypertension (principal); E78.5 Hyperlipidemia, unspecified; E83.52 Hypercalcemia | CPT/HCPCS: 99212 ==

== ENCOUNTER 2024-10-18 10:59 | Outpatient (REF) | payer OTHER, SELFPAY ==
--- OUTSIDE RECORDS SUMMARY | 2024-10-18 12:04 | XMS_ITS | Encounter Summary ---
Author Organization [facility] Address [address] [place] [phone] Care Team Providers Care Golf Club Head Former Name Role Phone Norma Warren ARMANI Primary Care Provider [phone] Reason for Referral * Imaging (Routine) - Closed Specialty Diagnoses / Procedures Referred By Luann deleon Referred To Contact Diagnostic Radiology Procedures CTA Head w and/or wo IV Contrast [facility] SCHEDULING [address] [place] [address] Phone: tel: Referral ID Status Reason Start Date Expiration Date Visits Re quested Visits Authorized [id number] Closed 07/14/2023 07/13/2024 1 1 Encounter Details Date Type Department Care Team (Late st Contact Info) Description 07/14/2023 Scanned Document [facility] SCHEDULING [address] [place] [address] Ethan Rose . Social History Tobacco Use [...] on filedocumented in this encounter Care Teams Golf Club Head Former Relationship Specialty Start Date End Date Norma Warren NP [address] [place] [phone] PCP - General 07/18/23 documented as of this encounter
== END 2024-10-18 11:00 | disposition home or self-care (01) ==
LOC: HO.MAMMO 10:59
PROVIDERS: PCP Registered Nurse; Visit Provider Registered Nurse
DX: Z12.31 Encounter for screening mammogram for malignant neoplasm of breast (principal)
CPT/HCPCS: 77063; 77067

== ENCOUNTER → 2024-10-18 11:45 | Outpatient (BNV) | payer OTHER, SELFPAY | PROVIDERS: PCP Registered Nurse; Visit Provider Internal Medicine | DX: Z12.31 Encounter for screening mammogram for malignant neoplasm of breast (principal) | CPT/HCPCS: 77063; 77067 ==

== ENCOUNTER 2025-02-24 09:25 | Outpatient (AMB) | payer OTHER, SELFPAY ==
--- NOTE | 2025-02-24 09:36 | HO.NEPHOV ---
Vital Signs 02/24/25 09:37 Height 5 ft 3 in Weight 122 lb BMI 21.6 BP 170/74 H Blood Pressure Location Rt brachial Position Sitting Pulse 83 Pulse Oximetry (%) 98 Oxygen Delivery Method Room Air Intake Visit Reasons: 6 MO FU-Conf Draftsperson Required: Yes Draftsperson Name: Marley [id number] Accompanied by: Self / Same As Patient Allergies atorvastatin (Lipitor) Allergy (Unknown, Verified 02/24/25 09:39) Unknown cholecalciferol (vitamin D3) (From Vitamin D3) Allergy (Verified 02/24/25 09:39) itchy Medication List - Last Reconciled 02/24/25 by Bernardo Dave MD amlodipine 5 mg PO DAILY aspirin 81 mg PO DAILY cholecalciferol (vitamin D3) 50 mcg PO DAILY olmesartan 40 mg PO DAILY rosuvastatin 20 mg PO BEDTIME ticagrelor (Brilinta) 90 mg PO BID hjyzwbu-qotlrpwzln-nxdbndy(PF) 0.5-2-0.005 % drps ophthalmic (eye) HPI Comments Details: 68-year-old woman with a history of hypertension and hyperlipidemia who has a history of cerebral aneurysm has been referred for evaluation of hypertension. She has had labile hypertension and has had significant fluctuating blood pressure readings. She is currently on amlodipine chlorthalidone and olmesartan. Based on the history it appears that there could be an issue with the compliance She was accompanied by a family member was able to translate. History of hypercalcemia due to primary hyperparathyroidism. She has been followed by endocrinology. She underwent 24 hour ABP M. Overall doing well.NO new issues 02/24/25 - The patient is a 70-year-old female presenting with hypertension. - Hypertension with elevated readings despite medication adherence. - Current medications: amlodipine, olmesartan, losartan. - Home blood pressure readings remain high. - 24-hour blood pressure monitoring planned. - Hypercalcemia noted. 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 Hyperparathyroidism Vitamin D deficiency Hypertension Hypercalcemia Non-toxic multinodular goiter Osteoporosis Surgical History Hx of angioplasty Hx of total hysterectomy Family History Father Unknown family medical history Mother Hypercholesteremia Sister Osteoporosis Social History Household Members: Spouse Alcohol intake: current Alcohol intake frequency: does not drink Patient Tobacco Use Status: Former Tobacco user Physical Exam Vital Signs: Last Vital Signs Pulse 83 02/24/25 09:37 BP 170/74 H 02/24/25 09:37 Pulse Ox 98 02/24/25 09:37 Oxygen Delivery Method Room Air 02/24/25 09:37 BMI result Body Mass Index 21.6 Const General: comfortable; No acute distress Orientation/consciousness: patient oriented x3 Eyes General: appearance normal, both eyes and all related structures Visual Roth: normal visual roth by confrontation Neck Neck: Yes supple and Yes no JVD Resp Effort & Inspection: normal respiratory effort and respiratory effort not decreased Auscultation: rhonchi Cardio Palpation: no palpable S3 and no palpable S4 Heart sounds: no rubs GI Inspection: Yes normal to inspection Palpation (GI): Soft to palpation Percussion: Yes normal to percussion Auscultation: normal bowel sounds General: Yes no CVA tenderness Back/Spine/Pelvis Back: no CVA tenderness Skin General skin exam: no petechiae and no purpura Neuro General: patient oriented x3 and no focal motor deficits Extrem General: No clubbing and No edema Results Reviewed Nephrology Results: Sodium, (135-145) 142 mmol/L 08/15/24 Potassium, (3.3-5.1) 3.9 mmol/L 08/15/24 Chloride, (96-108) 105 mmol/L 08/15/24 Carbon Dioxide, (22-29) 26 mmol/L 08/15/24 BUN, (9-16) 9 mg/dL 08/15/24 Creatinine, (0.5-1.4) 0.76 mg/dL 08/15/24 Calcium, (8.4-10.2) 10.0 mg/dL 08/15/24 PTH Intact, (8.7-77.1) 120.1 pg/mL H 08/15/24 Urine Protein, (Neg-Trace) 30 (1+) mg/dL H 08/15/24 Assessment & Plan Assessment & Plan (1) Hypercalcemia: Code(s): E83.52 - Hypercalcemia Category: Medical (2) Hypertension: Code(s): I10 - Essential (primary) hypertension Category: Medical Plan 69-year-old woman with history of labile hypertension cerebral aneurysm. History of hypercalcemia due to primary hyperparathyroidism. 24 hour ABP M reveals well-controlled hypertension. No nocturnal dipping. She has superimposed white coat effect. Encouraged her to stay on low-sodium diet. She had mild hypokalemia and alkalosis. Although this could be due to the use of diuretics Based on serum aldosterone and plasma renin activity, primary hyperaldosteronism seems unlikely. For now I encouraged her to stay on the current antihypertensive medication. She needs to monitor blood pressure at home and based on home blood pressure readings medications were adjusted. Today have not been any changes to medications based on the ABP M readings. Renal function is normal at this time. Serum calcium has normalized. 02/24/25 BP remains elevated in office. Possible white coat effect - Continue current medications: amlodipine, olmesartan, - Perform 24-hour blood pressure monitoring to evaluate control. - Adjust medications based on monitoring results. . Orders: Orders AMB 24 HR B/P Monitor PLACEMENT Today I10 - Essential (primary) hypertension Scribe Plan - Not visible on output: wce Coding Level of Care Code Est Pt Level 4 (39492) Diagnoses Hypercalcemia E83.52 Hypertension I10
[2025-02-24 09:37] VITALS: BP 170/74; PULSE 83; O2SAT 98; BMI 21.6
--- OUTSIDE RECORDS SUMMARY | 2025-02-24 10:31 | XMS_ITS | Encounter Summary ---
Author Organization [employer] Address [address] [facility] [address] [place] [address] Care Team Providers Care Structures Mechanic Name Role Phone [facility] Primary Care Provider [phone] Reason for Visit * Reason Comments Med Refill Encounter Details Date Type Department Care Team ([facility] Contact Info) Description 02/21/2025 Refill [facility] [address] [place], [place] [phone] [facility] [address] [place], [place] [phone] History of intravascular stent placement Social History [...] Date Recorded Patient Health Questionnaire-9 Score 0 01/10/2025 Patient Health Questionnaire-9 Score 0 01/10/2025 Last PHQ-9: Questionnaire Data Not on file 0 01/10/2025 Housing Stability Answer Date Recorded What is [...] Date Recorded Patient Health Questionnaire-2 Score 0 01/10/2025 Internet Access Answer Date Recorded Internet Access [...] Noted Time PHQ-9 Depression Total Score: 0 01/11/20 25 9:58 AM EDT documented as of this encounter Care Teams Structures Mechanic Relationship Specialty Start Date End Date Norma Warren FNP [address] [place] [phone] PCP - General Family Medicine 06/28/22 documented as of this encounter
--- OUTSIDE RECORDS SUMMARY | 2025-02-24 10:31 | XMS_ITS | Encounter Summary ---
Author Organization [facility] [facility] Address [address] [facility] 7[address] [place] [address] Care Team Providers Care Traveling Passenger Agent Name Role Phone [facility] Primary Care Provider [phone] Reason for Visit * Reason Comments Med Refill Encounter Details Date Type Department Care Team ([facility] Contact Info) Description 02/14/[address] [facility] [address] [place], [place] [phone] [facility] [address] [place] [address] Mixed hyperlipidemia Social History Tobacco Use Types [...] documented as of this encounter Care Teams Traveling Passenger Agent Relationship Specialty Start Date End Date Norma Warren FNP [address] [place] [phone] PCP - General Family Medicine 06/28/22 documented as of this encounter
--- OUTSIDE RECORDS SUMMARY | 2025-02-24 10:32 | XMS_ITS | Encounter Summary ---
Author Organization [employer] Address [address] [facility] 7t [place] [address] Care Team Providers Care Deadener Name Role Phone [place] [facility] Primary Care Provider [phone] Reason for Visit * Reason Onset Date Comments FYI 08/25/2023 Encounter Details Date Type Department Care Team ([facility] Contact Info) Description 08/25/2023 Telephone [facility] [address] [place], [place] [phone] [facility] 230 [place], [place] [phone] FY Social History Tobacco Use Types Packs/Day [...] 08/28/2023 10:05 AM EDT TC placed to [facility] endo, spoke to Kaylie, they report any rx other than a diuretic would be fine * Telephone Encounter - Patria Lewis RN - 08/25/2023 9:47 AM EDT FYI from [facility] endo * Telephone Encounter - Yakov Schulz - 08/25/2023 9:14 AM EDT Tc from [facility] with [facility] endocrinology wants to let the pcp know they will be stopping chlorthalidone (Hygroton) 25 MG tablet for 6 weeks because they are checking for hyperparathyroidism. If any questions you can contact Kaylie at [phone]. documented in this encounter Plan of Treatment Not on file documented as of this encounter Visit Diagnoses Not on filedocumented in this encounter Additional Health Concerns Assessment Noted Time PHQ-9 Depression Total Score: 0 06/23/19 24 10:29 AM EST documented as of this encounter Care Teams Deadener Relationship Specialty Start Date End Date Norma Warren FNP [address] [place] [phone] PCP - General Family Medicine 06/28/22 documented as of this encounter
--- OUTSIDE RECORDS SUMMARY | 2025-02-24 10:32 | XMS_ITS | Encounter Summary ---
Author Organization [employer] Address [address] [facility] 7t [place] [address] Care Team Providers Care Laundromat Manager Name Role Phone [facility] Primary Care Provider [phone] Reason for Visit * Reason Comments Med Refill Encounter Details Date Type Department Care Team ([facility] Contact Info) Description 05/20/2024 Refill [facility] MEDICINE [address] [place], [place] [phone] [facility] 230 [place], [place] [phone] History of intravascular stent placement Social History [...] documented as of this encounter Care Teams Laundromat Manager Relationship Specialty Start Date End Date Norma Warren FNP [address] [place] [phone] PCP - General Family Medicine 06/28/22 documented as of this encounter
--- OUTSIDE RECORDS SUMMARY | 2025-02-24 10:32 | XMS_ITS | Encounter Summary ---
Author Organization [employer] Address [address] [facility] 7t [place] [address] Care Team Providers Care Life Guard Name Role Phone [facility] Primary Care Provider [phone] Encounter Details Date Type Department Care Team ([facility] Contact Info) Description 08/30/2023 Orders Only [facility] MEDICINE 230 [place], [place] [phone] [facility] 230 [place] [address] Social History Tobacco Use Types Packs/Day Years [...] documented as of this encounter Care Teams Life Guard Relationship Specialty Start Date End Date Norma Warren FNP [address] [place] [phone] PCP - General Family Medicine 06/28/22 documented as of this encounter
--- OUTSIDE RECORDS SUMMARY | 2025-02-24 10:32 | XMS_ITS | Clinical Summary ---
Author Organization [employer] Address [address] [facility] [address] [place] [address] Care Team Providers Care Wood Grinder Operator Name Role Phone Kelvin [facility] Primary Care Provider [phone] Allergies Active Allergy Reactions Criticality Noted Date Comments Sunil Inhibitors Cough 10/13/2011 Atorvastatin 05/22/2020 Other reaction(s): Abdominal discomfort Egg Protein (Egg White) 03/01/2012 Medications Blood Pressure kitIndications:Es sential hypertension Use to monitor blood pressure as needed 1 kit 10/11/19 24 Active latanoprost (Xalatan) 0.005 % ophthalmic solution Instill 1 drop into each eye at bedtime 04/10/20 24 Active aspirin 81 MG EC tablet Take 1 tablet (81 mg) by mouth Once per day. 90 tablet 3 05/24/19 25 026 Active olmesartan (BENIcar) 40 MG tabletIndications :Essential hypertension TAKE 1 TABLET BY MOUTH EVERY MORNING 30 tablet 11 08/06/19 25 Active amLODIPine (Norvasc) 5 MG tabletIndications :Essential hypertension TAKE 1 TABLET BY MOUTH EVERY MORNING 30 tablet 11 08/06/19 25 Active Calcium + Vitamin D3 600-5 MG-MCG tabletIndications :Age-related osteoporosis without current pathological fracture TAKE 1 TABLET BY MOUTH EVERY MORNING 30 tablet 11 09/07/19 25 Active rosuvastatin (Crestor) 20 MG tabletIndications :Mixed hyperlipidemia TAKE 1 TABLET BY MOUTH EVERY MORNING 90 tablet 12/28/19 25 Active clobetasol (Temovate) 0.05 % ointmentIndicatio ns:Rash Apply topically 2 times daily. 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 Incidental finding of multiple other aneurysms in June 2023 during workup of headache/dizziness during high blood pressure episode. Followed by Dr. Hernandez at [facility] Neurosurgery Primary hyperparathyroidism 06/22/2023 Thyroid goiter 10/18/2022 Overview (10/18/2022): FNA 08/2020 negative Repeat thyroid ultrasound recommended 08/2022 per endocrinology recommendation Assessment & Plan (01/18/2023 2:08 PM EDT): Will order updated thyroid ultrasound Glaucoma 10/18/2022 Overview (10/18/2022): Followed by [facility] Heart murmur 10/18/2022 Healthcare maintenance 10/18/2022 Overview (01/17/2024): Mammo:09/2023-Birads 2 Pap: S/p total hysterectomy. Paps discontinued C-scope: Declines colonoscopy. Cologuard ordered BMD: 05/2023-osteoporosis T score-3.3-->followed by [facility] History of total hysterectomy 09/16/2016 Age-related osteoporosis wit hout current pathological fracture 09/16/2016 Overview (09/07/2023): Followed by [facility] [place] Tx with alendronate [id number] Last DEXA 01/2020. See report in endocrinology note from 01/2022 Hx of mild PTH elevation - DEXA 05/2023- worsening Osteoporosis based on the lowest T-score value of -3.3 Followed by [facility]o [facility]. Manley Assessment & Plan (05/09/2023 12:41 PM EST): Pt lost to follow up with Dr. Manley [facility] endo-will rerefer today Updated DEXA order Continue vitamin D and calcium supplementation Assessment & Plan (10/18/2022 9:43 AM EDT): Continue calcium and vitamin D supplementation Encouraged weight bearing activity Repeat DEXA scan 01/2024 Essential hypertension 06/04/2015 Overview (05/09/2023): Chlorthalidone 12.5mg Amlodipine 10mg Valsartan 40mg - Difficulty tolerating higher dose [...] Assessment & Plan (05/09/2023 12:36 PM EST): INCREASE chlorthalidone to 25mg once daily. Repeat BMP 2 weeks Assessment & Plan (01/18/2023 10:01 AM EDT): STOP blood pressure medications Patient will monitor x 2 weeks Reviewed ED precautions to include chest pain, shortness of breath, severe headache, sudden vision changes or BP >=180/>=120 mmHg. Contact HC if three or more BP readings >140/90. Pending RN BP check and review of home readings will consider if restarting medications indicated Assessment & Plan (10/18/2022 9:25 AM EDT): Home BP well controlled Continue current regimen Complete previously ordered labs Hypercholesterolemia 06/04/2015 Overview (11/06/2023): Rosuvastatin 20mg daily Assessment & Plan (01/17/2023 9:15 PM EDT): ASCVD risk >10% Pt tolerating rosuvastatin well Will increase to high dose statin Assessment & Plan (10/18/2022 9:37 AM EDT): Complete previously ordered labs Will adjust tx pending updated ASCVD risk score Encounters Date Type Department Care Team Description 02/21/2025 Refill [facility] [address] [place] [address] Norma Warren FNP History of intravascular stent placement 01/28/2025 1:30 PM EDT Clinical Support [facility] [address] [place] [address] Saeid Lagos RN Essential hypertension 01/28/2025 Travel 01/24/2025 Refill [facility] [address] [place] [address] Claire Roman FNP History of intravascular stent placement 01/10/2025 10:00 AM EDT Office Visit [facility] [address], [place] [address] Norma Warren FNP Labile hypertension (Primary Dx); Rash; Lung mass 01/10/2025 Travel 01/09/2025 Telephone [facility] [address], [place] [address] Norma Warren FNP chart prep 12/27/2024 Refill [facility] [address] [place] [address] Mayela Romero MD History of intravascular stent placement 12/27/2024 Refill [facility] [address], [place] [address] Norma Warren FNP Mixed hyperlipidemia; History of intravascular stent placement 11/29/2024 Refill [facility] [address] [place] [address] Norma Warren FNP History of intravascular stent placement from Last 3 Months Immunizations Immunization Administration Dates Next Due Moderna Covid-19 Vaccine [...] Sign Reading Time Taken Comments Blood Pressure 162/70 01/28/2025 1:25 PM EDT Pulse 75 01/28/2025 1:24 PM EDT Temperature 37.1 C (98.7 F) 01/10/2025 9:56 AM EDT Respiratory Rate 16 01/28/2025 1:24 PM EDT Oxygen Saturation 97% 01/28/2025 1:24 PM EDT Inhaled Oxygen Concentration - - Weight 57.4 kg (126 lb 9.6 oz) 01/10/2025 9:56 A M EDT Height 160 cm (5' 3 ) 01/10/2025 9:56 AM EDT Body Mass Index 22.43 01/10/2025 9:56 AM EDT Plan of Treatment Health Maintenance Due Date Last Done Comments CT Colonography 1955 Colonoscopy 1955 FIT 1955 Sigmoidoscopy 1955 COVID-19 Vaccine ( season) 2025 09/23/2021, 03/23/2021, 08/05/2020 Influenza Vaccine (#1) 2025 FOBT 01/30/2025 01/31/2024 SDOH Screening 07/19/2025 07/19/2024 Mammogram 10/18/2025 10/18/2024, 0501/2024, 01/18/2022, Additional history exists Alcohol/Substance Use Screening 01/10/2026 01/10/2025 Depression Screening 01/10/2026 01/10/2025, 01/11/20 Tobacco Screening 01/10/2026 01/10/2025 Colorectal Cancer Screening 01/30/2027 FIT DNA/Cologuard 01/30/2027 [...] patient's age to complete this topic Meningococcal B Vaccine Aged Out No l onger eligible based on patient's age to complete [...] Procedure Name Priority Date/Time Associated Diagnosis Comments BI MAMMOGRAM SCREENING TOMOSYNTHESIS BILATERAL Routine 10/18/2024 11:20 AM EDT LAB COLOGUARD COLON CANCER SCREEN Routine 01/31/2024 7:55 AM EDT Encounter for screening for malignant neoplasm of colon HEPATITIS C AB W/REFL TO HCV RNA, QN, PCR Routine 11/03/2022 8:05 AM EDT Healthcare maintenance LIPID PANEL, STANDARD Routine 11/03/2022 8:05 AM EDT Essential hypertension from Last 3 Months or Most Recently Relevant to Health Maintenance Results * BI Mammogram Screening Tomosynthesis Bilateral (10/18/2024 11:20 AM EDT) Anatomical Region Laterality Modality Breast Bilateral Mammography 10/18/2024 11:2 0 AM EDT Narrative 10/26/2024 7:53 PM EDT [facility] [address] [place], [place] [address] Mammography Report Signed Patient: Paulette Zamora MR#: [id number] : 1955 Acct:[id number] Age/Sex: 69 / F ADM Date: 10/18/24 Loc: HO.MAMMO Attending Dr: Norma Warren MACHINE TOOL OPERATOR Ordering Physician: Norma Warren MACHINE TOOL OPERATOR Results: 1Nega tive Date of Service: 10/18/24 Follow Up: 1 Year From Orig inal Mammogram Procedure(s): MM tomosynthesis screening BI Accession Number(s): [id number] cc: Norma Warren MACHINE TOOL OPERATOR EXAMINATION: MM SCREENING DIGITAL BREAST TOMOSYNTHESIS, BILATERAL CLINICAL INFORMATION: Screening. Asymptomatic. COMPARISON: Mammography: Comparison is made with available priors TECHNIQUE: Digital breast mammography with tomosynthesis is performed in both the craniocaudal and mediolateral oblique views along with computer-aided detection (CAD). FINDINGS: The breasts are heterogeneously dense, which may obscure small masses (ACR BI-RADS breast composition Category c). There are no significant masses, abnormal calcifications, or other abnormalities. MM/MM tomosynthesis screening BI IMPRESSION: No mammographic evidence of malignancy. ASSESSMENT: BI-RADS BI-RADS 1 - Negative RECOMMENDATION: Routine annual mammography screening. 1 year F/U This examination should not preclude the clinical evaluation of a suspicious palpable abnormality. This patient's information was entered into a reminder system with a target due date for their next mammogram. Electronically signed by: Magi Gibbs DO 10/26/2024 07:50 PM EDT Dictated By: Magi Gibbs DO Signed By: <Electronically signed by Magi Gibbs DO in OV> 10/26/24 1952 DD/ 1120 TD/TT: 10/18/24 1135 Ends Breakage Clerk: Procedure Note Donotuseinterpreter, Image - 10/26/2024 [facility] [address] [place] [address] Mammography Report Signed Patient: Rayshawn Zamora#: [id number] : 1955cct:[id number] Age/Sex: 69 / FADM Date: 10/18/24 Loc: HO.MAMMO Attending Dr: Norma Warren MACHINE TOOL OPERATOR Ordering Physician: Norma Warren FNPResults: 1Nega tive Date of Service: 10/18/24Follow Up: 1 Year From Orig inal Mammogram Procedure(s): MM tomosynthesis screening BI Accession Number(s): [id number] cc: Norma Warren MACHINE TOOL OPERATOR EXAMINATION: MM SCREENING DIGITAL BREAST TOMOSYNTHESIS, BILATERAL CLINICAL INFORMATION: Screening. Asymptomatic. COMPARISON: Mammography: Comparison is made with available priors TECHNIQUE: Digital breast mammography with tomosynthesis is performed in both the craniocaudal and mediolateral oblique views along with computer-aided detection (CAD). FINDINGS: The breasts are heterogeneously dense, which may obscure small masses (ACR BI-RADS breast composition Category c). There are no significant masses, abnormal calcifications, or other abnormalities. MM/MM tomosynthesis screening BI IMPRESSION: No mammographic evidence of malignancy. ASSESSMENT: BI-RADS BI-RADS 1 - Negative RECOMMENDATION: Routine annual mammography screening. 1 year F/U This examination should not preclude the clinical evaluation of a suspicious palpable abnormality. This patient's information was entered into a reminder system with a target due date for their next mammogram. Electronically signed by: Magi Gibbs DO 10/26/2024 07:50 PM EDT Dictated By: Magi Gibbs DO Signed By: <Electronically signed by Magi Gibbs DO in OV> 10/26/241949 DD/ TD/TT: 10/18/24 113 Ends Breakage Clerk: Norma Warren MACHINE TOOL OPERATOR IMG BI PROCEDURES Edited Resu lt - Final * Cologuard?? colon cancer screening (01/31/2024 7:55 AM EDT) Cologuard Result Negative Negative 02/04/20 24 9:37 AM EDT [facility] (CLIA #:[id number]) Comment: NEGATIVE TEST RESULT. A negative Cologuard result indicates a low likelihood that a colorectal cancer (CRC) or advanced adenoma (adenomatous polyps with more advanced pre-malignant features) is present. The chance that a person with a negative Cologuard test has a colorectal cancer is less than 1 in 1500 (negative predictive value >99.9%) or has an advanced adenoma is less than 5.3% (negative predictive value 94.7%). These data are based on a prospective cross-sectional study of 10,000 individuals at average risk for colorectal cancer who were screened with both Cologuard and colonoscopy. (Chaya Greene al, N Engl J Med 2014;370(14):5272-8358) The normal value (reference range) for this assay is negative. COLOGUARD RE-SCREENING RECOMMENDATION: Periodic colorectal cancer screening is an important part of preventive healthcare for asymptomatic individuals at average risk for colorectal cancer. Following a negative Cologuard result, the [place] [employer] and U.S. Multi-Society Task Force screening guidelines recommend a Cologuard re-screening interval of 3 years. References: [place] [employer] Guideline for Colorectal Cancer Screening: https://www.cancer.org/cancer/ibnxx-fobixx-ogbddu/midchywfm-ubkuepakx-kobgqzr/ac s-rec ommendations.html.; Jorge DK, Jacob CR, Da VargasK, Colorectal Cancer Screening: Recommendations for Physicians and Patients from the U.S. Multi-Society Task Force on Colorectal Cancer Screening , Am J Gastroenterology 2017; 112:4376-4470. TEST DESCRIPTION: Composite algorithmic analysis of stool DNA-biomarkers with hemoglobin immunoassay. Quantitative values of individual biomarkers are not [...] (Chaya Greene al, N Engl J Med 2014;370(14):2354-0241.) Cologuard may produce a false negative or false positive result (no colorectal cancer or precancerous polyp present at colonoscopy follow up). A negative Cologuard test result does not guarantee the absence of CRC or advanced adenoma (pre-cancer). The current Cologuard screening interval is every 3 years. ([place] [employer] Society and U.S. Multi-Society Task Force). Cologuard performance data in a 10,000 patient pivotal study using colonoscopy as the reference method can be accessed at the following location: www.[employer]/results. Additional description of the Cologuard test process, warnings and precautions can be found at www.[employer]. Stool specimen (specimen) 01/31/2024 7:55 AM EDT 02/01/2024 3:08 PM EDT [facility] LAB MOLECULAR DIAGNOSTICS ORD ERABLES Final Result [facility] (CLIA #:[id number]) [place] [address], * Hepatitis C Antibody with Reflex to HCV, RNA, Quantitative, Real-Time PCR (11/03/2022 8:05 AM EDT) Hepatitis C Antibody NON-REACT ARTI NON-REACT ARTI [facility] Comment: HCV antibody was non-reactive. There is no laboratory evidence of HCV infection. In most cases, no further action is required. However, if recent HCV exposure is suspected, a test for HCV RNA (test code 43670) is suggested. For additional information please refer to http://[employer].ROOOMERS/faq/DSC76x3 (This link is being provided for informational/ educational purposes only.) Blood Venous blood specimen / Unknown 11/03/2022 8:05 AM EDT 11/03/2022 8:05 AM EDT Narrative [facility] - 11/04/2022 5:44 PM EDT FASTING:YES FASTING: YES [facility] LAB BLOOD ORDERABLES Final Re sult [facility] [address], [place] [address] [facility] [address] [place] [address] * Lipid Panel, Standard (11/03/2022 8:05 AM EDT) Cholesterol, Total 146 <200 mg/dL [facility] HDL Cholesterol 57 > OR = 50 mg/dL [facility] Triglycerides 89 <150 mg/dL [facility] LDL Cholesterol 72 mg/dL (calc) [facility] Comment: Reference range: <100 Desirable range <100 mg/dL for primary prevention; <70 mg/dL for patients with CHD or diabetic patients with > or = 2 CHD risk factors. LDL-C is now calculated using the Rodolfo-Tyler calculation, which is a validated novel method providing better accuracy than the Friedewald equation in the estimation of LDL-C. Rodolfo HINTON et al. VAL. 2013;310(19): 6409-3644 (http://education.Parakey/faq/AZX793) Chol/HDLC Ratio 2.6 <5.0 (calc) [facility] Non-HDL Cholesterol 89 <130 mg/dL (calc) [facility] Comment: For patients with diabetes plus 1 major ASCVD risk factor, treating to a non-HDL-C goal of <100 mg/dL (LDL-C of <70 mg/dL) is considered a therapeutic option. Blood Venous blood specimen / Unknown 11/03/2022 8:05 AM EDT 11/03/2022 8:05 AM EDT Narrative [facility] - 11/04/2022 5:44 PM EDT FASTING:YES FASTING: YES [facility] LAB BLOOD ORDERABLES Final Re sult [facility] [address], [place] [address] [facility] [address] [place] [address] from Last 3 Months or Most Recently Relevant to Health Maintenance Insurance [facility]MO D-SNP) ALONDRA MOSS [id number] Care Teams Wood Grinder Operator Relationship Specialty Start Date End Date Norma Warren [facility] [address] [place] [id number] PCP - General Family Medicine 06/28/22
== END 2025-02-24 10:06 | disposition home or self-care (01) ==
LOC: HO.HKA 09:26
PROVIDERS: PCP Registered Nurse; Visit Provider Internal Medicine Hypertension Specialist
DX: E83.52 Hypercalcemia (principal); I10 Essential (primary) hypertension
CPT/HCPCS: 99214

== ENCOUNTER → 2025-02-24 09:25 | Outpatient (BNVA) | payer OTHER, SELFPAY | PROVIDERS: PCP Registered Nurse; Visit Provider Internal Medicine Hypertension Specialist | DX: I10 Essential (primary) hypertension (principal); E83.52 Hypercalcemia | CPT/HCPCS: 99212 ==

== ENCOUNTER 2025-03-14 13:27 | Outpatient (AMB) | payer OTHER, SELFPAY ==
[2025-03-14 13:31] VITALS: BP 150/60; PULSE 94; O2SAT 97
--- NOTE | 2025-03-14 13:31 | HO.NEPHOV ---
Vital Signs 03/14/25 13:31 Height 5 ft 3 in BP 150/60 H Blood Pressure Location Lt brachial Position Sitting Pulse 94 Pulse Source Pulse Oximeter Pulse Oximetry (%) 97 Oxygen Delivery Method Room Air Intake Visit Reasons: 1 wk f/u monitor interpretation conf Junction Maker Required: Yes Junction Maker Name: Jewels [id number] Accompanied by: Self / Same As Patient Allergies atorvastatin (Lipitor) Allergy (Unknown, Verified 03/14/25 13:31) Unknown cholecalciferol (vitamin D3) (From Vitamin D3) Allergy (Verified 03/14/25 13:31) itchy Medication List - Last Reconciled 03/14/25 by Bernardo Dave MD amlodipine 5 mg PO DAILY aspirin 81 mg PO DAILY cholecalciferol (vitamin D3) 50 mcg PO DAILY olmesartan 40 mg PO DAILY rosuvastatin 20 mg PO BEDTIME ticagrelor (Brilinta) 90 mg PO BID bczqmql-whvevdsvmt-hzhdnwm(PF) 0.5-2-0.005 % drps ophthalmic (eye) HPI Comments Details: 68-year-old woman with a history of hypertension and hyperlipidemia who has a history of cerebral aneurysm has been referred for evaluation of hypertension. She has had labile hypertension and has had significant fluctuating blood pressure readings. She is currently on amlodipine chlorthalidone and olmesartan. Based on the history it appears that there could be an issue with the compliance She was accompanied by a family member was able to translate. History of hypercalcemia due to primary hyperparathyroidism. She has been followed by endocrinology. She underwent 24 hour ABP M. Overall doing well.NO new issues 02/24/25 - The patient is a 70-year-old female presenting with hypertension. - Hypertension with elevated readings despite medication adherence. - Current medications: amlodipine, olmesartan, losartan. - Home blood pressure readings remain high. - 24-hour blood pressure monitoring planned. - Hypercalcemia noted. 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 Hyperparathyroidism Vitamin D deficiency Hypertension Hypercalcemia Non-toxic multinodular goiter Osteoporosis Surgical History Hx of angioplasty Hx of total hysterectomy Family History Father Unknown family medical history Mother Hypercholesteremia Sister Osteoporosis Social History Household Members: Spouse Alcohol intake: current Alcohol intake frequency: does not drink Patient Tobacco Use Status: Former Tobacco user Physical Exam Vital Signs: Last Vital Signs Pulse 94 03/14/25 13:31 BP 150/60 H 03/14/25 13:31 Pulse Ox 97 03/14/25 13:31 Oxygen Delivery Method Room Air 03/14/25 13:31 Office Procedures 24 B/P Monitor Interpretation Details: DAytime 136/72 Night time 135/73 24 hr average 136/72 Overall well controlled White coat effect present CPT: 21891 24 Hour Blood Pressure Monitor Reading Procedure code (CPT) selection complete Results Reviewed Nephrology Results: Sodium, (135-145) 142 mmol/L 08/15/24 Potassium, (3.3-5.1) 3.9 mmol/L 08/15/24 Chloride, (96-108) 105 mmol/L 08/15/24 Carbon Dioxide, (22-29) 26 mmol/L 08/15/24 BUN, (9-16) 9 mg/dL 08/15/24 Creatinine, (0.5-1.4) 0.76 mg/dL 08/15/24 Calcium, (8.4-10.2) 10.0 mg/dL 08/15/24 PTH Intact, (8.7-77.1) 120.1 pg/mL H 08/15/24 Urine Protein, (Neg-Trace) 30 (1+) mg/dL H 08/15/24 Assessment & Plan Assessment & Plan (1) Hypercalcemia: Code(s): E83.52 - Hypercalcemia Category: Medical (2) Hypertension: Code(s): I10 - Essential (primary) hypertension Category: Medical (3) Elevated blood pressure reading in office with diagnosis of hypertension: Code(s): I10 - Essential (primary) hypertension Category: Medical Plan 69-year-old woman with history of labile hypertension cerebral aneurysm. History of hypercalcemia due to primary hyperparathyroidism. 24 hour ABP M reveals well-controlled hypertension. No nocturnal dipping. She has superimposed white coat effect. Encouraged her to stay on low-sodium diet. She had mild hypokalemia and alkalosis. Although this could be due to the use of diuretics Based on serum aldosterone and plasma renin activity, primary hyperaldosteronism seems unlikely. For now I encouraged her to stay on the current antihypertensive medication. She needs to monitor blood pressure at home and based on home blood pressure readings medications were adjusted. Today have not been any changes to medications based on the ABP M readings. Renal function is normal at this time. Serum calcium has normalized. 03/14/25 BP remains elevated in office. 24 hr ABPM shows well controleld HTN Superimposed white coat effect - Continue current medications: amlodipine, olmesartan, Low salt diet Orders: Orders AMB 24 HR B/P Monitor INTERPRETATION Today I10 - Essential (primary) hypertension Scribe Plan - Not visible on output: wce Coding Level of Care Code Est Pt Level 4 (92008) Diagnoses Hypercalcemia E83.52 Hypertension I10 Elevated blood pressure reading in office with diagnosis of hypertension I10 CPT Codes - CPT: 77250 24 Hour Blood Pressure Monitor Reading ([id number])
== END 2025-03-14 13:48 | disposition home or self-care (01) ==
LOC: HO.HKA 13:27
PROVIDERS: PCP Registered Nurse; Visit Provider Internal Medicine Hypertension Specialist
DX: E83.52 Hypercalcemia (principal); I10 Essential (primary) hypertension
CPT/HCPCS: 93790; 99214

== ENCOUNTER → 2025-03-14 13:27 | Outpatient (BNVA) | payer OTHER, SELFPAY | PROVIDERS: PCP Registered Nurse; Visit Provider Internal Medicine Hypertension Specialist | DX: I10 Essential (primary) hypertension (principal); E83.52 Hypercalcemia; Z86.79 Personal history of other diseases of the circulatory system | CPT/HCPCS: 93786; 93788; 99212 ==